=== PATIENT | female | born 1945 | race Caucasian/White ===

== ENCOUNTER 2017-03-13 16:29 | Inpatient (IN) ==
[2017-03-13] MEDS ORDERED: FUROSEMIDE 100 MG/10 ML VIAL IV STA (17:16)
[2017-03-13] MEDS ORDERED: NITROGLYCERIN 2% OINT 1 INCH/GM PACK TOP STA (17:16)
[2017-03-13] MEDS ORDERED: ASPIRIN 325 MG TABLET PO STA (17:16)
[2017-03-13] MEDS ORDERED: ONDANSETRON 4 MG/2 ML VIAL IV STA (17:16)
[2017-03-13] MEDS ORDERED: methylPREDNISolone SOD SUC 125 MG/2 ML VIAL IV STA (17:16)
[2017-03-13] MEDS ORDERED: ALBUTEROL/IPRATROPIUM 3 ML NEB RESP TX STA (17:16)
[2017-03-13] MEDS ORDERED: ASPIRIN 325 MG TABLET ONE (17:32)
[2017-03-13] MEDS ORDERED: NITROGLYCERIN 2% OINT 1 INCH/GM PACK TOP ONE (17:32)
[2017-03-13] MEDS ORDERED: ONDANSETRON 4 MG/2 ML VIAL ONE (17:32)
[2017-03-13] MEDS ORDERED: FUROSEMIDE 100 MG/10 ML VIAL ONE (17:32)
[2017-03-13] MEDS ORDERED: methylPREDNISolone SOD SUC 125 MG/2 ML VIAL ONE (17:32)
[2017-03-13 17:34] LABS: Basophils % 0.5 % (0.0-0.8); Eosinophils # 0.1 10*3/uL (0.0-0.87); Eosinophils % 1.2 % (0.00-10.9); Hematocrit 28.5 VOL% (35.7-47.0); Hemoglobin 9.5 GM/DL (12.0-16.0); Immature Granulocytes % 0.9 %; Immature Granulocytes Absolute 0.07 #; Lymphocytes # 1.5 10*3/uL (1.4-4.0); Lymphocytes % 18.1 % (21.3-54.2); Mean Corpuscular HGB Conc 33.3 GM/DL (32-36); Mean Corpuscular Hemoglobin 30 PG (27-34); Mean Corpuscular Volume 89.9 FL (87-102); Monocytes # 0.4 10*3/uL (0.11-0.8); Monocytes % 4.9 % (1.7-12.7); Neutrophils % 74.4 % (38.7-73.9); Platelet Count 191 T/CUMM (130-400); Red Blood Count 3.17 MC/CUMM (3.8-5.5); Red Cell Distribution Width 12.5 % (9.3-17.3)
[2017-03-13 17:55] LABS: PT Patient Result 10.5 SECS
[2017-03-13 18:11] LABS: Albumin 3.6 G/DL (3.4-5.0); Bilirubin,Total 0.4 MG/DL (0.2-1.0); Calcium 8.5 MG/DL (8.5-10.1); Magnesium 2.2 MG/DL (1.8-2.4); Osmolality,Calculated 286.8 MOS/KG (273-304); Potassium 4.2 MMOL/L (3.5-5.1); Total Protein 6.7 G/DL (6.4-8.3); Troponin I Only 0.021 NG/ML (0.00-0.045)
[2017-03-13 18:14] LABS: Apearance,Urine CLEAR (Clear); Bacteria,Urine Occasional /HPF (Few); Bilirubin,Urine Negative (Negative); Blood, Urine Negative (Negative); Glucose,Urine (UA) >=500 mg/dL (Negative); Ketones,Urine Negative (Negative); Nitrite,Urine Negative (Negative); Protein,Urine 30 MG/DL; RBC,Urine <1 /HPF (0-4); Urine Color Straw (Yellow); Urine Specific Gravity 1.003 (1.001-1.035); Urine Urobilinogen < 2.0 EU/DL (0.2-1.0); WBC,Urine <1 /HPF (0-6)
[2017-03-13] MEDS ORDERED: ENOXAPARIN 100 MG/ML SYRINGE SUBCUT STA (18:27)
[2017-03-13] MEDS ORDERED: ENOXAPARIN 120 MG/0.8 ML SYRINGE SUBCUT ONE (18:55)
[2017-03-13] MEDS ORDERED: ALBUTEROL/IPRATROPIUM 3 ML NEB RESP TX PRN (19:10)
[2017-03-13] MEDS ORDERED: ONDANSETRON 4 MG/2 ML VIAL IV PRN (19:10)
[2017-03-13] MEDS ORDERED: MAGNESIUM SULF RIDER 4 GM in PREMIX 1 EACH IV PRN (19:10)
[2017-03-13] MEDS ORDERED: GLUCAGON 1 MG VIAL IM PRN (19:10)
[2017-03-13] MEDS ORDERED: DEXTROSE 50% 25 GM/50 ML VIAL IV PRN (19:10)
[2017-03-13] MEDS ORDERED: FUROSEMIDE 40 MG TABLET PO PRN (19:10)
[2017-03-13] MEDS ORDERED: MAGNESIUM SULF RIDER 2 GM in PREMIX 1 EACH IV PRN (19:10)
[2017-03-13] MEDS ORDERED: POTASSIUM CHLORIDE 20 MEQ TABLET PO PRN (19:10)
[2017-03-13] MEDS ORDERED: INSULIN NPH/REGULAR 70/30 100 UNIT/ML SUBCUT ONE (19:51)
[2017-03-13] MEDS: INSULIN NPH/REGULAR 70/30 100 UNIT/ML SUBCUT SCH (20:00)
[2017-03-13] MEDS: ENOXAPARIN 120 MG/0.8 ML SYRINGE SUBCUT SCH (21:02)
[2017-03-13] MEDS ORDERED: CARVEDILOL 3.125 MG TABLET ONE (21:10)
[2017-03-13] MEDS ORDERED: FAMOTIDINE 20 MG TABLET ONE (21:10)
[2017-03-13] MEDS ORDERED: INSULIN REGULAR 100 UNIT/ML ONE (22:06)
[2017-03-13] MEDS: CARVEDILOL 3.125 MG TABLET PO SCH (22:34)
[2017-03-13] MEDS: FAMOTIDINE 20 MG TABLET PO SCH (22:34)
[2017-03-13] MEDS: CITALOPRAM 20 MG TABLET PO SCH (22:34)
[2017-03-13] MEDS: ROSUVASTATIN 20 MG TABLET PO SCH (22:34)
[2017-03-13] MEDS: SODIUM CHLORIDE 0.9% 1,000 ML IV SCH (22:35)
[2017-03-13] MEDS: PREGABALIN 75 MG CAPSULE PO SCH (22:35)
[2017-03-13] MEDS: traZODone 50 MG TABLET PO SCH (22:35)
[2017-03-13] MEDS: INSULIN REGULAR 100 UNIT/ML SUBCUT SCH (22:36)
[2017-03-13] MEDS: INSULIN GLARGINE 100 UNIT/ML SUBCUT SCH (22:37)
[2017-03-14] MEDS: NITROGLYCERIN 2% OINT 1 INCH/GM PACK TOP SCH ×4 (02:01→17:18)
[2017-03-14] MEDS ORDERED: NITROGLYCERIN 2% OINT 1 INCH/GM PACK TOP ONE ×2 (04:28→12:17)
[2017-03-14 06:11] LABS: Hematocrit 28.9 VOL% (35.7-47.0); Hemoglobin 9.9 GM/DL (12.0-16.0); Red Blood Count 3.31 MC/CUMM (3.8-5.5); White Blood Count 6.5 T/CUMM (4-12)
[2017-03-14 06:12] LABS: Basophils % 0.3 % (0.0-0.8); Immature Granulocytes % 1.1 %; Immature Granulocytes Absolute 0.07 #; Lymphocytes # 0.8 10*3/uL (1.4-4.0); Lymphocytes % 12.1 % (21.3-54.2); Mean Corpuscular HGB Conc 34.3 GM/DL (32-36); Mean Corpuscular Hemoglobin 30 PG (27-34); Mean Corpuscular Volume 87.3 FL (87-102); Mean Platelet Volume 11.4 FL (9.6-12.0); Monocytes # 0.1 10*3/uL (0.11-0.8); Monocytes % 1.1 % (1.7-12.7); Neutrophils # 5.5 10*3/uL (1.4-7.4); Neutrophils % 85.4 % (38.7-73.9); Platelet Count 203 T/CUMM (130-400); Red Cell Distribution Width 12.1 % (9.3-17.3)
[2017-03-14 07:46] LABS: Alanine Aminotransferase 32 U/L (13-56); Albumin 3.6 G/DL (3.4-5.0); Alkaline Phosphatase 118 U/L (45-117); Aspartate Amino Transferase 13 U/L (0-37); Bilirubin,Total < 0.39 MG/DL (0.2-1.0); Blood Urea Nitrogen 31 MG/DL (7-18); Calcium 9.2 MG/DL (8.5-10.1); Cholesterol 146 MG/DL (50-200); Glucose 359 MG/DL (74-106); HDL Cholesterol 50 MG/DL (40-60); Magnesium 2.1 MG/DL (1.8-2.4); Osmolality,Calculated 295.7 MOS/KG (273-304); Potassium 4.3 MMOL/L (3.5-5.1); Risk Ratio 2.92; Sodium 138 MMOL/L (136-145); Total Protein 7.2 G/DL (6.4-8.3); Triglycerides 131 MG/DL (2-150); VLDL CHOLESTEROL 26.2 MG/DL
[2017-03-14] MEDS ORDERED: INSULIN REGULAR 100 UNIT/ML ONE ×2 (08:00→11:46)
[2017-03-14] MEDS: INSULIN REGULAR 100 UNIT/ML SUBCUT SCH ×4 (08:01→20:59)
[2017-03-14] MEDS ORDERED: ASPIRIN CHEW 81 MG TABLET PO SCH (09:00)
[2017-03-14] MEDS ORDERED: PANTOPRAZOLE 40 MG TABLET PO SCH (09:00)
[2017-03-14] MEDS ORDERED: ASPIRIN EC 325 MG TABLET PO SCH (09:00)
[2017-03-14] MEDS ORDERED: CARVEDILOL 3.125 MG TABLET ONE (09:02)
[2017-03-14] MEDS ORDERED: INSULIN NPH/REGULAR 70/30 100 UNIT/ML SUBCUT ONE (09:05)
[2017-03-14] MEDS ORDERED: ENOXAPARIN 120 MG/0.8 ML SYRINGE SUBCUT ONE (09:05)
[2017-03-14] MEDS ORDERED: PANTOPRAZOLE 40 MG TABLET PO ONE (09:06)
[2017-03-14] MEDS ORDERED: FAMOTIDINE 20 MG TABLET ONE (09:06)
[2017-03-14] MEDS ORDERED: amLODIPine 5 MG TABLET ONE (09:06)
[2017-03-14] MEDS: ENOXAPARIN 120 MG/0.8 ML SYRINGE SUBCUT SCH (09:09)
[2017-03-14] MEDS: FAMOTIDINE 20 MG TABLET PO SCH ×2 (09:10→20:59)
[2017-03-14] MEDS: CARVEDILOL 3.125 MG TABLET PO SCH ×2 (09:10→20:58)
[2017-03-14] MEDS: amLODIPine 5 MG TABLET PO SCH (09:10)
[2017-03-14] MEDS: INSULIN NPH/REGULAR 70/30 100 UNIT/ML SUBCUT SCH ×2 (09:10→18:55)
[2017-03-14] MEDS: LEVOTHYROXINE 137 MCG TABLET PO SCH (09:42)
[2017-03-14] MEDS: GLIMEPIRIDE 4 MG TABLET PO SCH (09:43)
[2017-03-14] MEDS: LOSARTAN 50 MG TABLET PO SCH (09:43)
[2017-03-14] MEDS: PREGABALIN 75 MG CAPSULE PO SCH ×3 (09:52→20:59)
[2017-03-14] MEDS ORDERED: CITALOPRAM 20 MG TABLET PO ONE (10:00)
[2017-03-14] MEDS: CITALOPRAM 20 MG TABLET PO SCH ×2 (10:40→20:58)
[2017-03-14 11:24] LABS: Troponin I Only < 0.015 NG/ML (0.00-0.045)
[2017-03-14] MEDS ORDERED: GLUCAGON 1 MG VIAL IM PRN (12:24)
[2017-03-14] MEDS ORDERED: DEXTROSE 50% 25 GM/50 ML VIAL IV PRN (12:24)
[2017-03-14] MEDS ORDERED: ASPIRIN CHEW 81 MG TABLET PO ONE (13:25)
[2017-03-14] MEDS: traZODone 50 MG TABLET PO SCH (20:58)
[2017-03-14] MEDS: ROSUVASTATIN 20 MG TABLET PO SCH (20:58)
[2017-03-14] MEDS: INSULIN GLARGINE 100 UNIT/ML SUBCUT SCH (20:59)
[2017-03-14] MEDS: SODIUM CHLORIDE 0.9% 1,000 ML IV SCH (21:01)
[2017-03-15] MEDS: NITROGLYCERIN 2% OINT 1 INCH/GM PACK TOP SCH ×3 (01:47→12:06)
[2017-03-15 05:39] LABS: Basophils % 0.2 % (0.0-0.8); Eosinophils # 0.1 10*3/uL (0.0-0.87); Eosinophils % 0.7 % (0.00-10.9); Hemoglobin 8.9 GM/DL (12.0-16.0); Immature Granulocytes % 0.4 %; Immature Granulocytes Absolute 0.04 #; Lymphocytes # 3.3 10*3/uL (1.4-4.0); Lymphocytes % 33.7 % (21.3-54.2); Mean Corpuscular Hemoglobin 30 PG (27-34); Mean Corpuscular Volume 89.7 FL (87-102); Mean Platelet Volume 11.3 FL (9.6-12.0); Monocytes # 0.8 10*3/uL (0.11-0.8); Monocytes % 7.7 % (1.7-12.7); Neutrophils # 5.7 10*3/uL (1.4-7.4); Neutrophils % 57.3 % (38.7-73.9); Platelet Count 195 T/CUMM (130-400); Red Blood Count 3.01 MC/CUMM (3.8-5.5); Red Cell Distribution Width 12.6 % (9.3-17.3); White Blood Count 9.9 T/CUMM (4-12)
[2017-03-15 06:05] LABS: Magnesium 2.4 MG/DL (1.8-2.4); Osmolality,Calculated 285.4 MOS/KG (273-304); Potassium 4.3 MMOL/L (3.5-5.1)
[2017-03-15] MEDS: INSULIN REGULAR 100 UNIT/ML SUBCUT SCH ×3 (07:20→16:42)
[2017-03-15] MEDS: GLIMEPIRIDE 4 MG TABLET PO SCH (08:00)
[2017-03-15] MEDS: INSULIN NPH/REGULAR 70/30 100 UNIT/ML SUBCUT SCH (08:00)
[2017-03-15] MEDS: PREGABALIN 75 MG CAPSULE PO SCH ×3 (08:01→16:42)
[2017-03-15] MEDS ORDERED: PANTOPRAZOLE 40 MG TABLET PO SCH (09:00)
[2017-03-15] MEDS ORDERED: ENOXAPARIN 40 MG/0.4 ML SYRINGE SUBCUT SCH (09:00)
[2017-03-15] MEDS: LEVOTHYROXINE 137 MCG TABLET PO SCH (09:41)
[2017-03-15] MEDS: CITALOPRAM 20 MG TABLET PO SCH (09:41)
[2017-03-15] MEDS: LOSARTAN 50 MG TABLET PO SCH (09:41)
[2017-03-15] MEDS: amLODIPine 5 MG TABLET PO SCH (09:42)
[2017-03-15] MEDS: FAMOTIDINE 20 MG TABLET PO SCH (09:42)
[2017-03-15] MEDS: CARVEDILOL 3.125 MG TABLET PO SCH (09:42)
[2017-03-15 16:43] VITALS: BP 125/66
== END 2017-03-15 17:15 | disposition home or self-care (01) | DRG 392 ==
LOC: N.ED 16:29 → N.EDINP 18:27 → N.TELEN 03-14 12:30
PROVIDERS: ADMIT Internal Medicine Clinical Cardiac Electrophysiology; ATTEND Internal Medicine Clinical Cardiac Electrophysiology

== ENCOUNTER 2017-10-30 13:44 | Inpatient (IN) ==
[2017-10-30] MEDS ORDERED: SODIUM CHLORIDE 0.9% 1,000 ML IV STA ×2 (14:05→16:09)
[2017-10-30 15:09] LABS: Basophils # 0.1 10*3/uL (0.0-0.2); Basophils % 0.6 % (0.0-0.8); Eosinophils # 0.1 10*3/uL (0.0-0.87); Eosinophils % 0.7 % (0.00-10.9); Hematocrit 38.5 VOL% (35.7-47.0); Hemoglobin 12.5 GM/DL (12.0-16.0); Immature Granulocytes % 0.6 %; Immature Granulocytes Absolute 0.05 #; Lymphocytes # 1.6 10*3/uL (1.4-4.0); Mean Corpuscular HGB Conc 32.5 GM/DL (32-36); Mean Corpuscular Hemoglobin 30 PG (27-34); Mean Corpuscular Volume 91.9 FL (87-102); Mean Platelet Volume 11.4 FL (9.6-12.0); Monocytes # 0.2 10*3/uL (0.11-0.8); Neutrophils # 6.1 10*3/uL (1.4-7.4); Neutrophils % 75.1 % (38.7-73.9); Platelet Count 209 T/CUMM (130-400); Red Blood Count 4.19 MC/CUMM (3.8-5.5); Red Cell Distribution Width 13.6 % (9.3-17.3); White Blood Count 8.1 T/CUMM (4-12)
[2017-10-30 15:19] LABS: INR 0.9; Partial Thromboplastin Time 26.8 SECS (0-40)
[2017-10-30 15:35] LABS: Alanine Aminotransferase 24 U/L (13-56); Albumin 3.4 G/DL (3.4-5.0); Alkaline Phosphatase 87 U/L (45-117); Aspartate Amino Transferase 15 U/L (0-37); Bilirubin,Total < 0.39 MG/DL (0.2-1.0); Blood Urea Nitrogen 40 MG/DL (7-18); Calcium 8.9 MG/DL (8.5-10.1); Glucose 313 MG/DL (74-106); Osmolality,Calculated 294.8 MOS/KG (273-304); Potassium 4.5 MMOL/L (3.5-5.1); Sodium 137 MMOL/L (136-145); Total Protein 6.9 G/DL (6.4-8.3)
[2017-10-30 16:23] LABS: Ammonia 16 UMOL/L (11-32)
[2017-10-30 16:47] LABS: Apearance,Urine Slightly Hazy (Clear); Bilirubin,Urine Negative (Negative); Blood, Urine Small mg/dL (Negative); Glucose,Urine (UA) >=500 mg/dL (Negative); Hyaline Casts,Urine 5 /LPF (0-3); Ketones,Urine Negative (Negative); Mucus,Urine Occasional /LPF (Occasional); Nitrite,Urine Negative (Negative); Protein,Urine >=500 MG/DL; RBC,Urine 7 /HPF (0-4); Squamous Epithelial Cell,Urine Occasional /HPF (0-10); Urine Color Yellow (Yellow); Urine Specific Gravity 1.024 (1.001-1.035); WBC,Urine 26 /HPF (0-6)
[2017-10-30 16:53] LABS: Barbiturates Screen,Urine Negative (Negative); Benzodiazepines Screen,Urine Negative (Negative); Cannabinoid Screen,Urine Negative (Negative); Opiate Screen,Urine Negative (Negative); Phencyclidine Screen,Urine Negative (Negative)
[2017-10-30] MEDS ORDERED: ONDANSETRON 4 MG/2 ML VIAL IV PRN (17:52)
[2017-10-30] MEDS ORDERED: DEXTROSE 50% 25 GM/50 ML VIAL IV PRN ×2 (17:52)
[2017-10-30] MEDS ORDERED: GLUCAGON 1 MG VIAL IM PRN ×2 (17:52)
[2017-10-30] MEDS ORDERED: SODIUM CHLORIDE 0.9% 1,000 ML IV SCH (18:00)
[2017-10-30] MEDS ORDERED: hydrALAZINE 20 MG/1 ML VIAL ONE (19:29)
[2017-10-30] MEDS ORDERED: hydrALAZINE 20 MG/1 ML VIAL IV ONE (19:30)
[2017-10-30] MEDS: CARVEDILOL 6.25 MG TABLET PO SCH (21:30)
[2017-10-30] MEDS: traZODone 50 MG TABLET PO SCH (21:30)
[2017-10-30] MEDS: CITALOPRAM 20 MG TABLET PO SCH (21:30)
[2017-10-30] MEDS: ROSUVASTATIN 20 MG TABLET PO SCH (21:30)
[2017-10-30] MEDS: PREGABALIN 75 MG CAPSULE PO SCH (21:30)
[2017-10-30] MEDS: PANTOPRAZOLE 40 MG TABLET PO SCH (21:30)
[2017-10-30] MEDS: ENOXAPARIN 30 MG/0.3 ML SYRINGE SUBCUT SCH (21:30)
[2017-10-30] MEDS: BACLOFEN 10 MG TABLET PO PRN (21:30)
[2017-10-30] MEDS: ACETAMINOPHEN 500 MG TABLET PO SCH (21:30)
[2017-10-30] MEDS: cefTRIAXone 1,000 MG in SYRINGE 1 EACH IV SCH (21:31)
[2017-10-30] MEDS: INSULIN GLARGINE 100 UNIT/ML SUBCUT SCH (22:21)
[2017-10-30] MEDS: INSULIN REGULAR 100 UNIT/ML SUBCUT SCH (22:21)
[2017-10-31 05:42] LABS: Basophils # 0.1 10*3/uL (0.0-0.2); Eosinophils # 0.2 10*3/uL (0.0-0.87); Eosinophils % 2.5 % (0.00-10.9); Hematocrit 35.8 VOL% (35.7-47.0); Hemoglobin 11.9 GM/DL (12.0-16.0); Immature Granulocytes % 0.4 %; Immature Granulocytes Absolute 0.03 #; Lymphocytes # 2.3 10*3/uL (1.4-4.0); Lymphocytes % 34.2 % (21.3-54.2); Mean Corpuscular HGB Conc 33.2 GM/DL (32-36); Mean Corpuscular Hemoglobin 31 PG (27-34); Mean Corpuscular Volume 91.8 FL (87-102); Mean Platelet Volume 11.4 FL (9.6-12.0); Monocytes # 0.4 10*3/uL (0.11-0.8); Monocytes % 5.3 % (1.7-12.7); Neutrophils # 3.8 10*3/uL (1.4-7.4); Neutrophils % 56.6 % (38.7-73.9); Platelet Count 214 T/CUMM (130-400); Red Cell Distribution Width 13.7 % (9.3-17.3); White Blood Count 6.8 T/CUMM (4-12)
[2017-10-31 06:14] LABS: Albumin 2.9 G/DL (3.4-5.0); Bilirubin,Total 0.5 MG/DL (0.2-1.0); Calcium 8.2 MG/DL (8.5-10.1); Osmolality,Calculated 289.5 MOS/KG (273-304); Potassium 3.9 MMOL/L (3.5-5.1); Total Protein 6.2 G/DL (6.4-8.3)
[2017-10-31] MEDS: LEVOTHYROXINE 137 MCG TABLET PO SCH ×2 (06:29→08:56)
[2017-10-31] MEDS: CARVEDILOL 6.25 MG TABLET PO SCH ×2 (08:54→17:28)
[2017-10-31] MEDS: LOSARTAN 50 MG TABLET PO SCH (08:55)
[2017-10-31] MEDS: CITALOPRAM 20 MG TABLET PO SCH ×2 (08:55→21:09)
[2017-10-31] MEDS: ASPIRIN CHEW 81 MG TABLET PO SCH (08:55)
[2017-10-31] MEDS: INSULIN REGULAR 100 UNIT/ML SUBCUT SCH ×4 (08:55→21:08)
[2017-10-31] MEDS: PANTOPRAZOLE 40 MG TABLET PO SCH ×2 (08:56→21:09)
[2017-10-31] MEDS: amLODIPine 5 MG TABLET PO SCH (08:56)
[2017-10-31] MEDS: PREGABALIN 75 MG CAPSULE PO SCH ×4 (08:56→21:11)
[2017-10-31] MEDS ORDERED: PANTOPRAZOLE 40 MG TABLET PO SCH (09:00)
[2017-10-31] MEDS: ACETAMINOPHEN 325 MG TABLET PO PRN (17:32)
[2017-10-31] MEDS ORDERED: LEVOTHYROXINE 100 MCG VIAL IV ONE (18:08)
[2017-10-31] MEDS: INSULIN GLARGINE 100 UNIT/ML SUBCUT SCH (21:08)
[2017-10-31] MEDS: traZODone 50 MG TABLET PO SCH (21:09)
[2017-10-31] MEDS: BACLOFEN 10 MG TABLET PO PRN (21:09)
[2017-10-31] MEDS: ROSUVASTATIN 20 MG TABLET PO SCH (21:09)
[2017-10-31] MEDS: cefTRIAXone 1,000 MG in SYRINGE 1 EACH IV SCH (21:11)
[2017-10-31] MEDS: ENOXAPARIN 30 MG/0.3 ML SYRINGE SUBCUT SCH (21:15)
[2017-10-31] MEDS: ACETAMINOPHEN 500 MG TABLET PO SCH (21:17)
[2017-11-01] MEDS: LEVOTHYROXINE 137 MCG TABLET PO SCH (06:13)
[2017-11-01] MEDS: CARVEDILOL 6.25 MG TABLET PO SCH ×2 (09:13→17:50)
[2017-11-01] MEDS: INSULIN REGULAR 100 UNIT/ML SUBCUT SCH ×4 (09:14→21:03)
[2017-11-01] MEDS: CITALOPRAM 20 MG TABLET PO SCH (09:14)
[2017-11-01] MEDS: LOSARTAN 50 MG TABLET PO SCH (09:14)
[2017-11-01] MEDS: PREGABALIN 75 MG CAPSULE PO SCH ×2 (09:14→21:02)
[2017-11-01] MEDS: ASPIRIN CHEW 81 MG TABLET PO SCH (09:14)
[2017-11-01] MEDS: amLODIPine 5 MG TABLET PO SCH (09:14)
[2017-11-01] MEDS: PANTOPRAZOLE 40 MG TABLET PO SCH ×2 (09:14→21:02)
[2017-11-01] MEDS: SODIUM CHLORIDE 0.45% 1,000 ML IV SCH (12:14)
[2017-11-01] MEDS: ACETAMINOPHEN 325 MG TABLET PO PRN ×2 (12:15→17:51)
[2017-11-01] MEDS: cefTRIAXone 1,000 MG in SYRINGE 1 EACH IV SCH (20:59)
[2017-11-01] MEDS: ACETAMINOPHEN 500 MG TABLET PO SCH (21:02)
[2017-11-01] MEDS: ROSUVASTATIN 20 MG TABLET PO SCH (21:02)
[2017-11-01] MEDS: traZODone 50 MG TABLET PO SCH (21:02)
[2017-11-01] MEDS: INSULIN GLARGINE 100 UNIT/ML SUBCUT SCH (21:02)
[2017-11-01] MEDS: ENOXAPARIN 30 MG/0.3 ML SYRINGE SUBCUT SCH (21:08)
[2017-11-02] MEDS: ACETAMINOPHEN 325 MG TABLET PO PRN (05:47)
[2017-11-02] MEDS: LEVOTHYROXINE 137 MCG TABLET PO SCH (06:25)
[2017-11-02] MEDS: LOSARTAN 50 MG TABLET PO SCH (09:32)
[2017-11-02] MEDS: CARVEDILOL 6.25 MG TABLET PO SCH ×2 (09:33→17:02)
[2017-11-02] MEDS: amLODIPine 5 MG TABLET PO SCH (09:33)
[2017-11-02] MEDS: CITALOPRAM 20 MG TABLET PO SCH (09:33)
[2017-11-02] MEDS: PANTOPRAZOLE 40 MG TABLET PO SCH ×2 (09:34→21:00)
[2017-11-02] MEDS: ASPIRIN CHEW 81 MG TABLET PO SCH (09:34)
[2017-11-02] MEDS: INSULIN REGULAR 100 UNIT/ML SUBCUT SCH ×4 (09:34→21:01)
[2017-11-02] MEDS: SODIUM CHLORIDE 0.45% 1,000 ML IV SCH (12:28)
[2017-11-02] MEDS ORDERED: POLYETHYLENE GLYCOL POWDER 17 GM PACK PO PRN (20:18)
[2017-11-02] MEDS: PREGABALIN 75 MG CAPSULE PO SCH (21:00)
[2017-11-02] MEDS: cefTRIAXone 1,000 MG in SYRINGE 1 EACH IV SCH (21:00)
[2017-11-02] MEDS: ACETAMINOPHEN 500 MG TABLET PO SCH (21:00)
[2017-11-02] MEDS: ROSUVASTATIN 20 MG TABLET PO SCH (21:00)
[2017-11-02] MEDS: traZODone 50 MG TABLET PO SCH (21:01)
[2017-11-02] MEDS: INSULIN GLARGINE 100 UNIT/ML SUBCUT SCH (21:01)
[2017-11-02] MEDS: ENOXAPARIN 30 MG/0.3 ML SYRINGE SUBCUT SCH (21:30)
[2017-11-03] MEDS: SODIUM CHLORIDE 0.45% 1,000 ML IV SCH (03:26)
[2017-11-03] MEDS: LEVOTHYROXINE 137 MCG TABLET PO SCH (06:02)
[2017-11-03 07:59] VITALS: BP 142/71
[2017-11-03] MEDS: amLODIPine 5 MG TABLET PO SCH (09:21)
[2017-11-03] MEDS: PANTOPRAZOLE 40 MG TABLET PO SCH (09:21)
[2017-11-03] MEDS: INSULIN REGULAR 100 UNIT/ML SUBCUT SCH (09:21)
[2017-11-03] MEDS: ASPIRIN CHEW 81 MG TABLET PO SCH (09:22)
[2017-11-03] MEDS: CITALOPRAM 20 MG TABLET PO SCH (09:22)
[2017-11-03] MEDS: LOSARTAN 50 MG TABLET PO SCH (09:22)
[2017-11-03] MEDS: CARVEDILOL 6.25 MG TABLET PO SCH (09:23)
== END 2017-11-03 13:56 | disposition home health service (06) | DRG 682 ==
LOC: EDUNIT# → EDBD → N.ED 13:44 → N.EDINP 16:24 → N.TELEN 18:18
PROVIDERS: ADMIT Internal Medicine; ATTEND Internal Medicine

== ENCOUNTER 2018-03-21 22:38 | Inpatient (IN) ==
[2018-03-21] MEDS ORDERED: ASPIRIN 325 MG TABLET PO STA (23:43)
[2018-03-22] MEDS ORDERED: NITROGLYCERIN 2% OINT 1 INCH/GM PACK TOP STA (00:22)
[2018-03-22] MEDS ORDERED: hydrALAZINE 20 MG/1 ML VIAL IV STA (00:26)
[2018-03-22 00:55] LABS: Basophils % 0.5 % (0.0-0.8); Eosinophils # 0.3 10*3/uL (0.0-0.87); Eosinophils % 3.5 % (0.00-10.9); Hematocrit 32.8 VOL% (35.7-47.0); Hemoglobin 10.7 GM/DL (12.0-16.0); Immature Granulocytes % 0.4 %; Immature Granulocytes Absolute 0.03 #; Lymphocytes # 2.4 10*3/uL (1.4-4.0); Mean Corpuscular HGB Conc 32.6 GM/DL (32-36); Mean Corpuscular Hemoglobin 30 PG (27-34); Mean Corpuscular Volume 91.9 FL (87-102); Mean Platelet Volume 11.6 FL (9.6-12.0); Monocytes # 0.5 10*3/uL (0.11-0.8); Neutrophils # 5.3 10*3/uL (1.4-7.4); Neutrophils % 61.6 % (38.7-73.9); Platelet Count 179 T/CUMM (130-400); Red Blood Count 3.57 MC/CUMM (3.8-5.5); Red Cell Distribution Width 12.2 % (9.3-17.3); White Blood Count 8.5 T/CUMM (4-12)
[2018-03-22 01:06] LABS: Alanine Aminotransferase 21 U/L (13-56); Albumin 3.3 G/DL (3.4-5.0); Alkaline Phosphatase 91 U/L (45-117); Aspartate Amino Transferase 13 U/L (0-37); Bilirubin,Total < 0.39 MG/DL (0.2-1.0); Blood Urea Nitrogen 36 MG/DL (7-18); Calcium 8.7 MG/DL (8.5-10.1); Glucose 272 MG/DL (74-106); Osmolality,Calculated 298.3 MOS/KG (273-304); Potassium 4.4 MMOL/L (3.5-5.1); Sodium 141 MMOL/L (136-145); Total Protein 7.1 G/DL (6.4-8.3)
[2018-03-22] MEDS ORDERED: ONDANSETRON 4 MG/2 ML VIAL IV PRN (03:03)
[2018-03-22] MEDS ORDERED: DEXTROSE 50% 25 GM/50 ML VIAL IV PRN (03:03)
[2018-03-22] MEDS ORDERED: MORPHINE 4 MG/1 ML VIAL IV PRN (03:03)
[2018-03-22] MEDS ORDERED: GLUCAGON 1 MG VIAL IM PRN (03:03)
[2018-03-22] MEDS ORDERED: hydrALAZINE 20 MG/1 ML VIAL IV PRN (03:29)
[2018-03-22 06:41] LABS: Risk Ratio 2.61; Thyroid Stimulating Hormone 5.82 uIU/ml (0.358-3.74); VLDL CHOLESTEROL 18.4 MG/DL
[2018-03-22] MEDS: ACETAMINOPHEN 325 MG TABLET PO PRN ×2 (07:38→16:24)
[2018-03-22] MEDS: INSULIN LISPRO 100 UNIT/ML SUBCUT SCH ×4 (08:34→21:03)
[2018-03-22] MEDS: ENOXAPARIN 40 MG/0.4 ML SYRINGE SUBCUT SCH (08:35)
[2018-03-22] MEDS ORDERED: MECLIZINE 12.5 MG TABLET PO PRN (10:05)
[2018-03-22] MEDS ORDERED: CARVEDILOL 3.125 MG TABLET PO SCH (10:30)
[2018-03-22] MEDS: ASPIRIN CHEW 81 MG TABLET PO SCH (11:10)
[2018-03-22] MEDS: LOSARTAN 50 MG TABLET PO SCH (11:10)
[2018-03-22] MEDS: amLODIPine 5 MG TABLET PO SCH (11:10)
[2018-03-22] MEDS: CARVEDILOL 6.25 MG TABLET PO SCH (16:28)
[2018-03-22] MEDS: PREGABALIN 75 MG CAPSULE PO SCH (21:01)
[2018-03-22] MEDS: CITALOPRAM 20 MG TABLET PO SCH (21:02)
[2018-03-22] MEDS: ROSUVASTATIN 20 MG TABLET PO SCH (21:02)
[2018-03-22] MEDS: INSULIN GLARGINE 100 UNIT/ML SUBCUT SCH (21:04)
[2018-03-23] MEDS: ACETAMINOPHEN 325 MG TABLET PO PRN ×4 (04:36→21:20)
[2018-03-23 05:56] LABS: Basophils # 0.1 10*3/uL (0.0-0.2); Basophils % 0.6 % (0.0-0.8); Eosinophils # 0.3 10*3/uL (0.0-0.87); Eosinophils % 4.3 % (0.00-10.9); Hematocrit 32.9 VOL% (35.7-47.0); Hemoglobin 10.4 GM/DL (12.0-16.0); Immature Granulocytes % 0.8 %; Immature Granulocytes Absolute 0.06 #; Lymphocytes # 2.8 10*3/uL (1.4-4.0); Lymphocytes % 35.3 % (21.3-54.2); Mean Corpuscular HGB Conc 31.6 GM/DL (32-36); Mean Corpuscular Hemoglobin 29 PG (27-34); Mean Corpuscular Volume 92.2 FL (87-102); Mean Platelet Volume 11.7 FL (9.6-12.0); Monocytes # 0.6 10*3/uL (0.11-0.8); Neutrophils # 4.1 10*3/uL (1.4-7.4); Platelet Count 202 T/CUMM (130-400); Red Blood Count 3.57 MC/CUMM (3.8-5.5); Red Cell Distribution Width 12.3 % (9.3-17.3); White Blood Count 7.9 T/CUMM (4-12)
[2018-03-23] MEDS: LEVOTHYROXINE 137 MCG TABLET PO SCH (06:07)
[2018-03-23 06:22] LABS: Calcium 8.8 MG/DL (8.5-10.1); Osmolality,Calculated 290.5 MOS/KG (273-304); Potassium 4.8 MMOL/L (3.5-5.1)
[2018-03-23] MEDS: NITROGLYCERIN SL 0.4 MG TABLET SL PRN ×2 (07:38→07:46)
[2018-03-23] MEDS: LOSARTAN 50 MG TABLET PO SCH (08:27)
[2018-03-23] MEDS: FUROSEMIDE 40 MG TABLET PO SCH (08:27)
[2018-03-23] MEDS: CARVEDILOL 6.25 MG TABLET PO SCH (08:27)
[2018-03-23] MEDS: amLODIPine 5 MG TABLET PO SCH (08:27)
[2018-03-23] MEDS: ASPIRIN CHEW 81 MG TABLET PO SCH (08:28)
[2018-03-23] MEDS: ENOXAPARIN 40 MG/0.4 ML SYRINGE SUBCUT SCH (08:40)
[2018-03-23] MEDS: INSULIN LISPRO 100 UNIT/ML SUBCUT SCH ×4 (10:10→21:55)
[2018-03-23] MEDS: GLIMEPIRIDE 4 MG TABLET PO SCH (10:10)
[2018-03-23] MEDS ORDERED: amLODIPine 10 MG TABLET PO SCH (11:00)
[2018-03-23] MEDS ORDERED: amLODIPine 5 MG TABLET PO ONE (11:02)
[2018-03-23] MEDS ORDERED: ALUM/MAG/SIMETH/LIDO VISC 1:1 30 ML BOTTLE PO PRN (11:46)
[2018-03-23] MEDS: CARVEDILOL 12.5 MG TABLET PO SCH (17:01)
[2018-03-23] MEDS: INSULIN GLARGINE 100 UNIT/ML SUBCUT SCH (21:19)
[2018-03-23] MEDS: ROSUVASTATIN 20 MG TABLET PO SCH (21:20)
[2018-03-23] MEDS: CITALOPRAM 20 MG TABLET PO SCH (21:20)
[2018-03-23] MEDS: PREGABALIN 75 MG CAPSULE PO SCH (21:20)
[2018-03-24] MEDS: LEVOTHYROXINE 137 MCG TABLET PO SCH (06:58)
[2018-03-24] MEDS ORDERED: DIAZEPAM 5 MG TABLET PO ONE (07:54)
[2018-03-24] MEDS ORDERED: diphenhydrAMINE CAP 50 MG CAPSULE PO ONE (07:55)
[2018-03-24] MEDS ORDERED: SODIUM CHLORIDE 0.9% 1,000 ML IV SCH (08:00)
[2018-03-24] MEDS: ASPIRIN CHEW 81 MG TABLET PO SCH (08:12)
[2018-03-24] MEDS: CARVEDILOL 12.5 MG TABLET PO SCH ×2 (08:12→17:02)
[2018-03-24] MEDS: amLODIPine 10 MG TABLET PO SCH (08:13)
[2018-03-24] MEDS: LOSARTAN 50 MG TABLET PO SCH (08:13)
[2018-03-24] MEDS: ENOXAPARIN 40 MG/0.4 ML SYRINGE SUBCUT SCH (08:13)
[2018-03-24] MEDS ORDERED: POTASSIUM CHLORIDE RIDER 10 MEQ in PREMIX 1 EACH IV PRN (08:22)
[2018-03-24] MEDS ORDERED: MAGNESIUM SULF RIDER 2 GM in PREMIX 1 EACH IV PRN (08:22)
[2018-03-24] MEDS ORDERED: HEPARIN/NACL 0.9% 2 UNITS/ML 1,000 ML IV ONE (08:48)
[2018-03-24] MEDS ORDERED: LIDOCAINE 1%/EPI INJ 20 ML VIAL ONE (08:48)
[2018-03-24] MEDS ORDERED: MIDAZOLAM 2 MG/2 ML VIAL ONE (09:01)
[2018-03-24] MEDS ORDERED: fentaNYL 100 MCG/2 ML VIAL ONE (09:01)
[2018-03-24] MEDS ORDERED: ENOXAPARIN 60 MG/0.6 ML SYRINGE ONE (09:32)
[2018-03-24] MEDS ORDERED: TICAGRELOR 90 MG TABLET ONE (09:49)
[2018-03-24] MEDS ORDERED: HYDROmorphone 2 MG/1 ML VIAL IV PRN (10:21)
[2018-03-24] MEDS: INSULIN LISPRO 100 UNIT/ML SUBCUT SCH ×4 (11:13→22:22)
[2018-03-24] MEDS: GLIMEPIRIDE 4 MG TABLET PO SCH (11:13)
[2018-03-24] MEDS: FUROSEMIDE 40 MG TABLET PO SCH (11:14)
[2018-03-24] MEDS: ROSUVASTATIN 20 MG TABLET PO SCH (21:35)
[2018-03-24] MEDS: TICAGRELOR 90 MG TABLET PO SCH (21:35)
[2018-03-24] MEDS: PREGABALIN 75 MG CAPSULE PO SCH (21:35)
[2018-03-24] MEDS: CITALOPRAM 20 MG TABLET PO SCH (21:35)
[2018-03-24] MEDS: INSULIN GLARGINE 100 UNIT/ML SUBCUT SCH (22:18)
[2018-03-24] MEDS: ACETAMINOPHEN 325 MG TABLET PO PRN (22:23)
[2018-03-25 04:57] LABS: Basophils % 0.5 % (0.0-0.8); Eosinophils # 0.2 10*3/uL (0.0-0.87); Hemoglobin 9.8 GM/DL (12.0-16.0); Immature Granulocytes % 0.4 %; Immature Granulocytes Absolute 0.03 #; Lymphocytes # 2.5 10*3/uL (1.4-4.0); Lymphocytes % 31.8 % (21.3-54.2); Mean Corpuscular HGB Conc 32.7 GM/DL (32-36); Mean Corpuscular Hemoglobin 30 PG (27-34); Mean Corpuscular Volume 90.6 FL (87-102); Mean Platelet Volume 11.7 FL (9.6-12.0); Monocytes # 0.5 10*3/uL (0.11-0.8); Monocytes % 6.8 % (1.7-12.7); Neutrophils # 4.6 10*3/uL (1.4-7.4); Neutrophils % 57.5 % (38.7-73.9); Platelet Count 203 T/CUMM (130-400); Red Blood Count 3.31 MC/CUMM (3.8-5.5)
[2018-03-25 05:28] LABS: Calcium 8.3 MG/DL (8.5-10.1); Osmolality,Calculated 294.7 MOS/KG (273-304); Potassium 4.6 MMOL/L (3.5-5.1)
[2018-03-25] MEDS: LEVOTHYROXINE 137 MCG TABLET PO SCH (06:04)
[2018-03-25] MEDS ORDERED: PANTOPRAZOLE 40 MG TABLET PO SCH (09:00)
[2018-03-25] MEDS: ASPIRIN CHEW 81 MG TABLET PO SCH (09:07)
[2018-03-25] MEDS: LOSARTAN 50 MG TABLET PO SCH (09:07)
[2018-03-25] MEDS: TICAGRELOR 90 MG TABLET PO SCH (09:07)
[2018-03-25] MEDS: FUROSEMIDE 40 MG TABLET PO SCH (09:07)
[2018-03-25] MEDS: amLODIPine 10 MG TABLET PO SCH (09:07)
[2018-03-25] MEDS: CARVEDILOL 12.5 MG TABLET PO SCH (09:08)
[2018-03-25] MEDS: GLIMEPIRIDE 4 MG TABLET PO SCH (09:08)
[2018-03-25] MEDS: INSULIN LISPRO 100 UNIT/ML SUBCUT SCH (09:08)
[2018-03-25] MEDS: ENOXAPARIN 40 MG/0.4 ML SYRINGE SUBCUT SCH (09:28)
[2018-03-25] MEDS ORDERED: INFLUENZA VIRUS VACCINE 0.5 ML SYRINGE IM ONE (10:34)
[2018-03-25 12:00] VITALS: BP 122/53
== END 2018-03-25 13:05 | disposition home or self-care (01) | DRG 247 ==
LOC: N.ED 22:38 → N.EDINP 03-22 02:55 → INTOOBSV 03-22 02:55 → N.TELES 03-22 03:42
PROVIDERS: ADMIT Internal Medicine; ATTEND Internal Medicine
PROC: CLCCHCL (ICD-10-PCS; 2018-03-24 09:45)

== ENCOUNTER 2018-07-14 21:14 | Inpatient (IN) ==
[2018-07-14] MEDS ORDERED: NITROGLYCERIN 2% OINT 1 INCH/GM PACK TOP STA (21:38)
[2018-07-14] MEDS ORDERED: FUROSEMIDE 100 MG/10 ML VIAL IV STA (21:38)
[2018-07-14] MEDS ORDERED: methylPREDNISolone SOD SUC 125 MG/2 ML VIAL IV STA (21:38)
[2018-07-14] MEDS ORDERED: ONDANSETRON 4 MG/2 ML VIAL IV STA (21:38)
[2018-07-14] MEDS ORDERED: ALBUTEROL 2.5 MG/3 ML NEB RESP TX SCH (22:00)
[2018-07-14 22:09] LABS: ABG Base Excess -3.9 MMOL/L (-2.5-2.5); ABG HCO3 22.1 MMOL/L (20-26); ABG Oxygen Saturation 94.7 % (95-100); ABG PCO2 43.7 MM HG (35-48); ABG PH 7.322 (7.35-7.45); ABG PO2 79.2 MM HG (80-95); ABG TCO2 23.5 MMOL/L (23-27); Allen Test Positive
[2018-07-14 22:16] LABS: Basophils # 0.1 10*3/uL (0.0-0.2); Basophils % 0.4 % (0.0-0.8); Eosinophils # 0.2 10*3/uL (0.0-0.87); Eosinophils % 1.8 % (0.00-10.9); Hematocrit 29.5 VOL% (35.7-47.0); Hemoglobin 9.2 GM/DL (12.0-16.0); Immature Granulocytes % 0.7 %; Immature Granulocytes Absolute 0.09 #; Lymphocytes # 1.5 10*3/uL (1.4-4.0); Lymphocytes % 10.7 % (21.3-54.2); Mean Corpuscular HGB Conc 31.2 GM/DL (32-36); Mean Corpuscular Hemoglobin 29 PG (27-34); Mean Corpuscular Volume 93.9 FL (87-102); Mean Platelet Volume 11.6 FL (9.6-12.0); Monocytes # 1.1 10*3/uL (0.11-0.8); Monocytes % 8.1 % (1.7-12.7); Neutrophils # 10.6 10*3/uL (1.4-7.4); Neutrophils % 78.3 % (38.7-73.9); Platelet Count 221 T/CUMM (130-400); Red Blood Count 3.14 MC/CUMM (3.8-5.5); Red Cell Distribution Width 12.7 % (9.3-17.3); White Blood Count 13.5 T/CUMM (4-12)
[2018-07-14 22:24] LABS: INR 0.9; PT Patient Result 10.3 SECS
[2018-07-14 22:34] LABS: Alanine Aminotransferase 35 U/L (13-56); Albumin 3.3 G/DL (3.4-5.0); Alkaline Phosphatase 112 U/L (45-117); Aspartate Amino Transferase 15 U/L (0-37); Bilirubin,Total < 0.39 MG/DL (0.2-1.0); Blood Urea Nitrogen 52 MG/DL (7-18); Calcium 8.3 MG/DL (8.5-10.1); Glucose 192 MG/DL (74-106); Osmolality,Calculated 297.4 MOS/KG (273-304); Potassium 5.8 MMOL/L (3.5-5.1); Sodium 140 MMOL/L (136-145); Total Protein 7.3 G/DL (6.4-8.3)
[2018-07-14 22:52] LABS: Amorphous Crystals,Urine Few /HPF (Few); Apearance,Urine CLEAR (Clear); Bilirubin,Urine Negative (Negative); Blood, Urine Small mg/dL (Negative); Glucose,Urine (UA) 50 mg/dL (Negative); Ketones,Urine Negative (Negative); Mucus,Urine Occasional /LPF (Occasional); Nitrite,Urine Negative (Negative); Protein,Urine 100 MG/DL; Squamous Epithelial Cell,Urine Occasional /HPF (0-10); Urine Color Yellow (Yellow); Urine Specific Gravity 1.016 (1.001-1.035); Urine Urobilinogen < 2.0 EU/DL (0.2-1.0)
[2018-07-14] MEDS ORDERED: CALCIUM CHLORIDE 1,000 MG/10 ML SYRINGE IV STA (23:25)
[2018-07-14] MEDS ORDERED: DEXTROSE 50% 25 GM/50 ML VIAL IV PRN (23:58)
[2018-07-14] MEDS ORDERED: MAGNESIUM SULF RIDER 4 GM in PREMIX 1 EACH IV PRN (23:58)
[2018-07-14] MEDS ORDERED: MAGNESIUM SULF RIDER 2 GM in PREMIX 1 EACH IV PRN (23:58)
[2018-07-14] MEDS ORDERED: ONDANSETRON 4 MG/2 ML VIAL IV PRN (23:58)
[2018-07-14] MEDS ORDERED: DEXTROSE 50% 25 GM/50 ML SYRINGE IV PRN (23:58)
[2018-07-14] MEDS ORDERED: GLUCAGON 1 MG VIAL IM PRN ×2 (23:58)
[2018-07-15] MEDS ORDERED: MECLIZINE 12.5 MG TABLET PO PRN (00:03)
[2018-07-15] MEDS ORDERED: TICAGRELOR 90 MG TABLET PO SCH (00:30)
[2018-07-15] MEDS: ROSUVASTATIN 20 MG TABLET PO SCH ×2 (03:24→21:13)
[2018-07-15] MEDS: CITALOPRAM 20 MG TABLET PO SCH ×2 (03:24→21:14)
[2018-07-15] MEDS: PREGABALIN 75 MG CAPSULE PO SCH ×2 (03:24→21:17)
[2018-07-15] MEDS: LEVOTHYROXINE 137 MCG TABLET PO SCH (07:13)
[2018-07-15 08:02] LABS: Basophils % 0.1 % (0.0-0.8); Hematocrit 25.3 VOL% (35.7-47.0); Immature Granulocytes % 0.7 %; Immature Granulocytes Absolute 0.08 #; Lymphocytes # 0.6 10*3/uL (1.4-4.0); Lymphocytes % 5.2 % (21.3-54.2); Mean Corpuscular HGB Conc 30.4 GM/DL (32-36); Mean Corpuscular Hemoglobin 29 PG (27-34); Mean Corpuscular Volume 95.8 FL (87-102); Mean Platelet Volume 11.3 FL (9.6-12.0); Monocytes # 0.1 10*3/uL (0.11-0.8); Monocytes % 1.3 % (1.7-12.7); Neutrophils % 92.7 % (38.7-73.9); Platelet Count 203 T/CUMM (130-400); Red Blood Count 2.64 MC/CUMM (3.8-5.5); Red Cell Distribution Width 12.7 % (9.3-17.3); White Blood Count 10.8 T/CUMM (4-12)
[2018-07-15 08:04] LABS: Hemoglobin 7.7 GM/DL (12.0-16.0)
[2018-07-15 08:10] LABS: Alanine Aminotransferase 31 U/L (13-56); Albumin 2.8 G/DL (3.4-5.0); Alkaline Phosphatase 96 U/L (45-117); Aspartate Amino Transferase 13 U/L (0-37); Bilirubin,Total < 0.39 MG/DL (0.2-1.0); Blood Urea Nitrogen 58 MG/DL (7-18); Calcium 8.9 MG/DL (8.5-10.1); Glucose 436 MG/DL (74-106); Sodium 136 MMOL/L (136-145); Total Protein 7.1 G/DL (6.4-8.3)
[2018-07-15 08:11] LABS: Anisocytosis 1+; Band Neutrophils 14 % (0-10); Giant Platelets Few; Lymphocytes 6 % (20-55); Platelet Estimate Normal; Segmented Neutrophils 76 % (50-85); Total Cells Counted 100
[2018-07-15 08:18] LABS: Potassium 6.2 MMOL/L (3.5-5.1)
[2018-07-15] MEDS ORDERED: POTASSIUM CHLORIDE RIDER 10 MEQ in PREMIX 1 EACH IV PRN (08:20)
[2018-07-15] MEDS ORDERED: MAGNESIUM SULF RIDER 2 GM in PREMIX 1 EACH IV PRN (08:20)
[2018-07-15] MEDS ORDERED: LOSARTAN 50 MG TABLET PO SCH (09:00)
[2018-07-15] MEDS ORDERED: CLOPIDOGREL 75 MG TABLET PO SCH (09:00)
[2018-07-15] MEDS ORDERED: PANTOPRAZOLE 40 MG TABLET PO SCH (09:00)
[2018-07-15] MEDS: SODIUM CHLORIDE 0.45% 1,000 ML IV SCH ×2 (09:18→19:08)
[2018-07-15] MEDS: OMEGA 3 ACID ETHYL ESTERS 1 GM CAPSULE PO SCH ×2 (09:20→21:13)
[2018-07-15] MEDS: amLODIPine 10 MG TABLET PO SCH (09:20)
[2018-07-15] MEDS: ASPIRIN CHEW 81 MG TABLET PO SCH (09:21)
[2018-07-15] MEDS: CARVEDILOL 6.25 MG TABLET PO SCH ×2 (09:21→21:14)
[2018-07-15] MEDS: PANTOPRAZOLE 40 MG TABLET PO SCH ×2 (09:21→21:17)
[2018-07-15] MEDS: GLIMEPIRIDE 4 MG TABLET PO SCH (09:21)
[2018-07-15] MEDS: FUROSEMIDE 40 MG/4 ML VIAL IV SCH ×2 (09:22→17:10)
[2018-07-15] MEDS: ENOXAPARIN 30 MG/0.3 ML SYRINGE SUBCUT SCH (09:23)
[2018-07-15] MEDS: INSULIN REGULAR 100 UNIT/ML SUBCUT SCH ×5 (09:23→23:28)
[2018-07-15 11:07] LABS: Hematocrit 25.4 VOL% (35.7-47.0); Hemoglobin 7.9 GM/DL (12.0-16.0)
[2018-07-15] MEDS: SODIUM POLYSTYRENE SULFATE 15 GM/60 ML BOTTLE PO SCH ×2 (11:24→17:09)
[2018-07-15] MEDS ORDERED: DEXTROSE 50% 25 GM/50 ML SYRINGE IV PRN (16:20)
[2018-07-15] MEDS ORDERED: GLUCAGON 1 MG VIAL IM PRN (16:20)
[2018-07-15] MEDS: INSULIN GLARGINE 100 UNIT/ML SUBCUT SCH (21:14)
[2018-07-15] MEDS: BACLOFEN 10 MG TABLET PO SCH (21:14)
[2018-07-15 22:49] LABS: Hemoglobin 7.8 GM/DL (12.0-16.0)
[2018-07-16] MEDS: INSULIN REGULAR 100 UNIT/ML SUBCUT SCH ×5 (04:05→21:04)
[2018-07-16 04:47] LABS: Basophils % 0.2 % (0.0-0.8); Eosinophils # 0.1 10*3/uL (0.0-0.87); Eosinophils % 0.5 % (0.00-10.9); Hematocrit 23.8 VOL% (35.7-47.0); Hemoglobin 7.4 GM/DL (12.0-16.0); Immature Granulocytes % 0.7 %; Immature Granulocytes Absolute 0.08 #; Lymphocytes # 2.8 10*3/uL (1.4-4.0); Lymphocytes % 23.3 % (21.3-54.2); Mean Corpuscular HGB Conc 31.1 GM/DL (32-36); Mean Corpuscular Hemoglobin 29 PG (27-34); Mean Corpuscular Volume 92.6 FL (87-102); Mean Platelet Volume 12.2 FL (9.6-12.0); Monocytes % 8.6 % (1.7-12.7); Neutrophils % 66.7 % (38.7-73.9); Platelet Count 213 T/CUMM (130-400); Red Blood Count 2.57 MC/CUMM (3.8-5.5); Red Cell Distribution Width 12.5 % (9.3-17.3); White Blood Count 11.9 T/CUMM (4-12)
[2018-07-16 05:07] LABS: Calcium 8.7 MG/DL (8.5-10.1); Osmolality,Calculated 300.4 MOS/KG (273-304); Potassium 4.6 MMOL/L (3.5-5.1)
[2018-07-16] MEDS: LEVOTHYROXINE 137 MCG TABLET PO SCH (06:50)
[2018-07-16] MEDS ORDERED: SODIUM CHLORIDE 0.9% 1,000 ML IV PRN (07:07)
[2018-07-16] MEDS: CARVEDILOL 6.25 MG TABLET PO SCH ×2 (09:11→21:02)
[2018-07-16] MEDS: GLIMEPIRIDE 4 MG TABLET PO SCH (09:17)
[2018-07-16] MEDS: amLODIPine 10 MG TABLET PO SCH (09:18)
[2018-07-16] MEDS: OMEGA 3 ACID ETHYL ESTERS 1 GM CAPSULE PO SCH ×2 (09:19→21:03)
[2018-07-16] MEDS: ASPIRIN CHEW 81 MG TABLET PO SCH (09:20)
[2018-07-16] MEDS: PANTOPRAZOLE 40 MG TABLET PO SCH ×2 (09:21→21:03)
[2018-07-16] MEDS: ENOXAPARIN 30 MG/0.3 ML SYRINGE SUBCUT SCH (09:21)
[2018-07-16] MEDS: FUROSEMIDE 40 MG/4 ML VIAL IV SCH (09:22)
[2018-07-16 10:38] LABS: Hematocrit 25.5 VOL% (35.7-47.0); Hemoglobin 7.9 GM/DL (12.0-16.0)
[2018-07-16] MEDS ORDERED: DIAZEPAM 5 MG TABLET PO ONE (12:00)
[2018-07-16] MEDS ORDERED: diphenhydrAMINE CAP 25 MG CAPSULE PO ONE (12:00)
[2018-07-16] MEDS: ACETAMINOPHEN 325 MG TABLET PO PRN ×2 (14:43→23:45)
[2018-07-16] MEDS: SODIUM CHLORIDE 0.45% 1,000 ML IV SCH (19:41)
[2018-07-16] MEDS: CITALOPRAM 20 MG TABLET PO SCH (21:02)
[2018-07-16] MEDS: ROSUVASTATIN 20 MG TABLET PO SCH (21:02)
[2018-07-16] MEDS: ESTRADIOL 0.01% VAG CREAM 42.5 GM TUBE VAG SCH (21:02)
[2018-07-16] MEDS: INSULIN GLARGINE 100 UNIT/ML SUBCUT SCH (21:03)
[2018-07-16] MEDS: BACLOFEN 10 MG TABLET PO SCH (21:03)
[2018-07-16] MEDS: PREGABALIN 75 MG CAPSULE PO SCH (21:03)
[2018-07-16 22:22] LABS: Hematocrit 29.7 VOL% (35.7-47.0); Hemoglobin 9.3 GM/DL (12.0-16.0)
[2018-07-17] MEDS: INSULIN REGULAR 100 UNIT/ML SUBCUT SCH ×7 (01:35→23:44)
[2018-07-17 04:56] LABS: Basophils # 0.1 10*3/uL (0.0-0.2); Basophils % 0.6 % (0.0-0.8); Eosinophils # 0.3 10*3/uL (0.0-0.87); Eosinophils % 3.5 % (0.00-10.9); Hematocrit 28.3 VOL% (35.7-47.0); Immature Granulocytes % 0.5 %; Immature Granulocytes Absolute 0.05 #; Lymphocytes # 3.4 10*3/uL (1.4-4.0); Lymphocytes % 35.1 % (21.3-54.2); Mean Corpuscular HGB Conc 31.8 GM/DL (32-36); Mean Corpuscular Hemoglobin 29 PG (27-34); Mean Corpuscular Volume 90.4 FL (87-102); Mean Platelet Volume 11.6 FL (9.6-12.0); Monocytes # 0.7 10*3/uL (0.11-0.8); Monocytes % 6.8 % (1.7-12.7); Neutrophils # 5.2 10*3/uL (1.4-7.4); Neutrophils % 53.5 % (38.7-73.9); Platelet Count 211 T/CUMM (130-400); Red Blood Count 3.13 MC/CUMM (3.8-5.5); Red Cell Distribution Width 13.5 % (9.3-17.3); White Blood Count 9.8 T/CUMM (4-12)
[2018-07-17 05:13] LABS: Calcium 8.4 MG/DL (8.5-10.1); Osmolality,Calculated 308.4 MOS/KG (273-304); Potassium 4.1 MMOL/L (3.5-5.1)
[2018-07-17 05:19] LABS: % Iron Saturation 14.1 % (18-50); Ferritin 80.3 ng/ml (8-252)
[2018-07-17] MEDS: PANTOPRAZOLE 40 MG TABLET PO SCH ×2 (08:32→20:58)
[2018-07-17] MEDS: OMEGA 3 ACID ETHYL ESTERS 1 GM CAPSULE PO SCH ×2 (08:32→20:58)
[2018-07-17] MEDS: GLIMEPIRIDE 4 MG TABLET PO SCH (08:32)
[2018-07-17] MEDS: amLODIPine 10 MG TABLET PO SCH (08:33)
[2018-07-17] MEDS: ASPIRIN CHEW 81 MG TABLET PO SCH (08:33)
[2018-07-17] MEDS: CARVEDILOL 6.25 MG TABLET PO SCH (08:33)
[2018-07-17] MEDS: LEVOTHYROXINE 137 MCG TABLET PO SCH (08:33)
[2018-07-17 09:52] LABS: Apearance,Urine Slightly Hazy (Clear); Bacteria,Urine Occasional /HPF (Few); Bilirubin,Urine Negative (Negative); Blood, Urine Large mg/dL (Negative); Glucose,Urine (UA) 50 mg/dL (Negative); Ketones,Urine Negative (Negative); Nitrite,Urine Negative (Negative); Protein,Urine 100 MG/DL; RBC,Urine 235 /HPF (0-4); Squamous Epithelial Cell,Urine Occasional /HPF (0-10); Urine Color Red (Yellow); Urine Specific Gravity 1.006 (1.001-1.035); Urine Urobilinogen < 2.0 EU/DL (0.2-1.0); WBC,Urine 156 /HPF (0-6)
[2018-07-17] MEDS: hydrALAZINE 25 MG TABLET PO SCH ×2 (10:24→20:57)
[2018-07-17] MEDS: SODIUM CHLORIDE 0.45% 1,000 ML IV SCH (16:14)
[2018-07-17] MEDS: FERROUS SULFATE 325 MG TABLET PO SCH (20:57)
[2018-07-17] MEDS: CITALOPRAM 20 MG TABLET PO SCH (20:57)
[2018-07-17] MEDS: ROSUVASTATIN 20 MG TABLET PO SCH (20:57)
[2018-07-17] MEDS: CARVEDILOL 3.125 MG TABLET PO SCH (20:57)
[2018-07-17] MEDS: ESTRADIOL 0.01% VAG CREAM 42.5 GM TUBE VAG SCH (20:57)
[2018-07-17] MEDS: INSULIN GLARGINE 100 UNIT/ML SUBCUT SCH (20:57)
[2018-07-17] MEDS: BACLOFEN 10 MG TABLET PO SCH (20:58)
[2018-07-17] MEDS: PREGABALIN 75 MG CAPSULE PO SCH (20:58)
[2018-07-18] MEDS: INSULIN REGULAR 100 UNIT/ML SUBCUT SCH ×5 (04:07→21:25)
[2018-07-18 04:32] LABS: Basophils % 0.4 % (0.0-0.8); Eosinophils # 0.4 10*3/uL (0.0-0.87); Eosinophils % 4.6 % (0.00-10.9); Hematocrit 28.9 VOL% (35.7-47.0); Hemoglobin 9.1 GM/DL (12.0-16.0); Immature Granulocytes % 0.3 %; Immature Granulocytes Absolute 0.03 #; Lymphocytes # 2.3 10*3/uL (1.4-4.0); Lymphocytes % 25.8 % (21.3-54.2); Mean Corpuscular HGB Conc 31.5 GM/DL (32-36); Mean Corpuscular Hemoglobin 28 PG (27-34); Mean Corpuscular Volume 90.3 FL (87-102); Mean Platelet Volume 11.7 FL (9.6-12.0); Monocytes # 0.8 10*3/uL (0.11-0.8); Monocytes % 8.5 % (1.7-12.7); Neutrophils # 5.4 10*3/uL (1.4-7.4); Neutrophils % 60.4 % (38.7-73.9); Platelet Count 204 T/CUMM (130-400); Red Cell Distribution Width 12.8 % (9.3-17.3); White Blood Count 8.9 T/CUMM (4-12)
[2018-07-18 04:55] LABS: Calcium 8.2 MG/DL (8.5-10.1); Osmolality,Calculated 300.3 MOS/KG (273-304); Potassium 4.4 MMOL/L (3.5-5.1)
[2018-07-18] MEDS ORDERED: PROPOFOL 200 MG/20 ML VIAL IV ONE (10:00)
[2018-07-18] MEDS ORDERED: LIDOCAINE 100 MG/5 ML SYRINGE ONE (10:00)
[2018-07-18] MEDS: OMEGA 3 ACID ETHYL ESTERS 1 GM CAPSULE PO SCH ×2 (10:10→21:23)
[2018-07-18] MEDS: amLODIPine 10 MG TABLET PO SCH (10:10)
[2018-07-18] MEDS: LEVOTHYROXINE 137 MCG TABLET PO SCH (10:10)
[2018-07-18] MEDS: GLIMEPIRIDE 4 MG TABLET PO SCH (10:11)
[2018-07-18] MEDS: PANTOPRAZOLE 40 MG TABLET PO SCH ×2 (10:11→21:24)
[2018-07-18] MEDS: DOCUSATE SODIUM 100 MG CAPSULE PO SCH (10:11)
[2018-07-18] MEDS: hydrALAZINE 25 MG TABLET PO SCH ×3 (10:11→21:24)
[2018-07-18] MEDS: CARVEDILOL 3.125 MG TABLET PO SCH ×2 (10:11→21:23)
[2018-07-18] MEDS: ASPIRIN CHEW 81 MG TABLET PO SCH (10:11)
[2018-07-18] MEDS: FERROUS SULFATE 325 MG TABLET PO SCH ×2 (10:12→21:24)
[2018-07-18] MEDS: PREGABALIN 75 MG CAPSULE PO SCH (21:23)
[2018-07-18] MEDS: ROSUVASTATIN 20 MG TABLET PO SCH (21:24)
[2018-07-18] MEDS: CITALOPRAM 20 MG TABLET PO SCH (21:24)
[2018-07-18] MEDS: ACETAMINOPHEN 325 MG TABLET PO PRN (21:24)
[2018-07-18] MEDS: INSULIN GLARGINE 100 UNIT/ML SUBCUT SCH (21:25)
[2018-07-18] MEDS: BACLOFEN 10 MG TABLET PO SCH (21:25)
[2018-07-18] MEDS: ESTRADIOL 0.01% VAG CREAM 42.5 GM TUBE VAG SCH (21:26)
[2018-07-19] MEDS: INSULIN REGULAR 100 UNIT/ML SUBCUT SCH ×6 (00:31→22:48)
[2018-07-19] MEDS: SODIUM CHLORIDE 0.45% 1,000 ML IV SCH ×3 (00:32→13:03)
[2018-07-19 05:31] LABS: Basophils % 0.4 % (0.0-0.8); Eosinophils # 0.4 10*3/uL (0.0-0.87); Eosinophils % 4.4 % (0.00-10.9); Hematocrit 31.8 VOL% (35.7-47.0); Hemoglobin 9.8 GM/DL (12.0-16.0); Immature Granulocytes % 0.3 %; Immature Granulocytes Absolute 0.03 #; Lymphocytes # 2.9 10*3/uL (1.4-4.0); Lymphocytes % 30.5 % (21.3-54.2); Mean Corpuscular HGB Conc 30.8 GM/DL (32-36); Mean Corpuscular Hemoglobin 28 PG (27-34); Mean Corpuscular Volume 91.6 FL (87-102); Mean Platelet Volume 11.7 FL (9.6-12.0); Monocytes # 0.9 10*3/uL (0.11-0.8); Monocytes % 9.2 % (1.7-12.7); Neutrophils # 5.2 10*3/uL (1.4-7.4); Neutrophils % 55.2 % (38.7-73.9); Platelet Count 216 T/CUMM (130-400); Red Blood Count 3.47 MC/CUMM (3.8-5.5); Red Cell Distribution Width 13.1 % (9.3-17.3); White Blood Count 9.5 T/CUMM (4-12)
[2018-07-19 05:49] LABS: Calcium 8.9 MG/DL (8.5-10.1); Osmolality,Calculated 297.4 MOS/KG (273-304); Potassium 4.2 MMOL/L (3.5-5.1)
[2018-07-19] MEDS: LEVOTHYROXINE 137 MCG TABLET PO SCH (06:40)
[2018-07-19] MEDS: GLIMEPIRIDE 4 MG TABLET PO SCH (08:37)
[2018-07-19] MEDS: OMEGA 3 ACID ETHYL ESTERS 1 GM CAPSULE PO SCH ×2 (08:37→22:45)
[2018-07-19] MEDS: FERROUS SULFATE 325 MG TABLET PO SCH ×2 (08:37→22:46)
[2018-07-19] MEDS: amLODIPine 10 MG TABLET PO SCH (08:37)
[2018-07-19] MEDS: DOCUSATE SODIUM 100 MG CAPSULE PO SCH (08:37)
[2018-07-19] MEDS: PANTOPRAZOLE 40 MG TABLET PO SCH ×2 (08:38→22:52)
[2018-07-19] MEDS: ASPIRIN CHEW 81 MG TABLET PO SCH (08:38)
[2018-07-19] MEDS: CARVEDILOL 3.125 MG TABLET PO SCH ×2 (08:38→22:46)
[2018-07-19] MEDS: hydrALAZINE 25 MG TABLET PO SCH ×3 (08:38→22:47)
[2018-07-19] MEDS ORDERED: ERTAPENEM 1,000 MG in SODIUM CHLORIDE 0.9% 100 ML IV SCH (18:00)
[2018-07-19] MEDS: cefTRIAXone 1,000 MG in SYRINGE 1 EACH IV SCH (18:07)
[2018-07-19] MEDS: PREGABALIN 75 MG CAPSULE PO SCH (22:46)
[2018-07-19] MEDS: ROSUVASTATIN 20 MG TABLET PO SCH (22:46)
[2018-07-19] MEDS: CITALOPRAM 20 MG TABLET PO SCH (22:46)
[2018-07-19] MEDS: BACLOFEN 10 MG TABLET PO SCH (22:47)
[2018-07-19] MEDS: INSULIN GLARGINE 100 UNIT/ML SUBCUT SCH (22:48)
[2018-07-19] MEDS: ESTRADIOL 0.01% VAG CREAM 42.5 GM TUBE VAG SCH (22:48)
[2018-07-19] MEDS: ACETAMINOPHEN 325 MG TABLET PO PRN (22:50)
[2018-07-20] MEDS: INSULIN REGULAR 100 UNIT/ML SUBCUT SCH ×6 (01:13→21:05)
[2018-07-20 04:43] LABS: Basophils # 0.1 10*3/uL (0.0-0.2); Basophils % 0.6 % (0.0-0.8); Eosinophils # 0.4 10*3/uL (0.0-0.87); Eosinophils % 4.2 % (0.00-10.9); Hematocrit 34.1 VOL% (35.7-47.0); Hemoglobin 10.8 GM/DL (12.0-16.0); Immature Granulocytes % 0.3 %; Immature Granulocytes Absolute 0.03 #; Lymphocytes # 2.7 10*3/uL (1.4-4.0); Mean Corpuscular HGB Conc 31.7 GM/DL (32-36); Mean Corpuscular Hemoglobin 29 PG (27-34); Mean Corpuscular Volume 90.2 FL (87-102); Mean Platelet Volume 11.3 FL (9.6-12.0); Monocytes # 0.7 10*3/uL (0.11-0.8); Monocytes % 8.2 % (1.7-12.7); Neutrophils # 4.8 10*3/uL (1.4-7.4); Neutrophils % 55.7 % (38.7-73.9); Platelet Count 226 T/CUMM (130-400); Red Blood Count 3.78 MC/CUMM (3.8-5.5); Red Cell Distribution Width 12.8 % (9.3-17.3); White Blood Count 8.6 T/CUMM (4-12)
[2018-07-20 05:06] LABS: Osmolality,Calculated 297.4 MOS/KG (273-304); Potassium 4.4 MMOL/L (3.5-5.1)
[2018-07-20] MEDS: LEVOTHYROXINE 137 MCG TABLET PO SCH (06:47)
[2018-07-20] MEDS: GLIMEPIRIDE 4 MG TABLET PO SCH (09:35)
[2018-07-20] MEDS: OMEGA 3 ACID ETHYL ESTERS 1 GM CAPSULE PO SCH ×2 (09:35→21:06)
[2018-07-20] MEDS: DOCUSATE SODIUM 100 MG CAPSULE PO SCH (09:35)
[2018-07-20] MEDS: amLODIPine 10 MG TABLET PO SCH (09:36)
[2018-07-20] MEDS: hydrALAZINE 25 MG TABLET PO SCH ×3 (09:36→21:11)
[2018-07-20] MEDS: PANTOPRAZOLE 40 MG TABLET PO SCH ×2 (09:36→21:11)
[2018-07-20] MEDS: CARVEDILOL 3.125 MG TABLET PO SCH ×2 (09:36→21:11)
[2018-07-20] MEDS: FERROUS SULFATE 325 MG TABLET PO SCH ×2 (09:36→21:11)
[2018-07-20] MEDS: ASPIRIN CHEW 81 MG TABLET PO SCH (09:37)
[2018-07-20] MEDS: ENOXAPARIN 30 MG/0.3 ML SYRINGE SUBCUT SCH (18:33)
[2018-07-20] MEDS: cefTRIAXone 1,000 MG in SYRINGE 1 EACH IV SCH (18:37)
[2018-07-20] MEDS: SODIUM CHLORIDE 0.45% 1,000 ML IV SCH (20:17)
[2018-07-20] MEDS: ROSUVASTATIN 20 MG TABLET PO SCH (21:06)
[2018-07-20] MEDS: INSULIN GLARGINE 100 UNIT/ML SUBCUT SCH (21:06)
[2018-07-20] MEDS: PREGABALIN 75 MG CAPSULE PO SCH (21:10)
[2018-07-20] MEDS: BACLOFEN 10 MG TABLET PO SCH (21:11)
[2018-07-20] MEDS: ESTRADIOL 0.01% VAG CREAM 42.5 GM TUBE VAG SCH (21:11)
[2018-07-20] MEDS: CITALOPRAM 20 MG TABLET PO SCH (21:11)
[2018-07-21] MEDS: SODIUM CHLORIDE 0.45% 1,000 ML IV SCH ×3 (00:38→23:33)
[2018-07-21] MEDS: INSULIN REGULAR 100 UNIT/ML SUBCUT SCH ×6 (00:38→22:35)
[2018-07-21 04:21] LABS: Basophils # 0.1 10*3/uL (0.0-0.2); Basophils % 0.7 % (0.0-0.8); Eosinophils # 0.4 10*3/uL (0.0-0.87); Eosinophils % 4.2 % (0.00-10.9); Hematocrit 34.1 VOL% (35.7-47.0); Hemoglobin 10.8 GM/DL (12.0-16.0); Immature Granulocytes % 0.4 %; Immature Granulocytes Absolute 0.04 #; Lymphocytes # 2.7 10*3/uL (1.4-4.0); Lymphocytes % 30.2 % (21.3-54.2); Mean Corpuscular HGB Conc 31.7 GM/DL (32-36); Mean Corpuscular Hemoglobin 29 PG (27-34); Mean Corpuscular Volume 90.2 FL (87-102); Mean Platelet Volume 11.5 FL (9.6-12.0); Monocytes # 0.9 10*3/uL (0.11-0.8); Monocytes % 9.7 % (1.7-12.7); Neutrophils % 54.8 % (38.7-73.9); Platelet Count 232 T/CUMM (130-400); Red Blood Count 3.78 MC/CUMM (3.8-5.5); Red Cell Distribution Width 12.7 % (9.3-17.3); White Blood Count 9.1 T/CUMM (4-12)
[2018-07-21 04:35] LABS: Calcium 8.7 MG/DL (8.5-10.1); Osmolality,Calculated 299.1 MOS/KG (273-304); Potassium 4.5 MMOL/L (3.5-5.1)
[2018-07-21] MEDS: LEVOTHYROXINE 137 MCG TABLET PO SCH (06:47)
[2018-07-21] MEDS ORDERED: ceFAZolin 1,000 MG VIAL IRRIG ONE (08:38)
[2018-07-21] MEDS ORDERED: ceFAZolin 1,000 MG in SYRINGE 1 EACH IV ONE (08:38)
[2018-07-21] MEDS ORDERED: HEPARIN/NACL 0.9% 2 UNITS/ML 500 ML IV ONE (09:27)
[2018-07-21] MEDS ORDERED: LIDOCAINE 1% 20 ML VIAL ONE (09:27)
[2018-07-21] MEDS ORDERED: ceFAZolin 1,000 MG VIAL ONE (09:27)
[2018-07-21] MEDS ORDERED: TISSUE ADHESIVE 1 EACH APPLICATOR TOP ONE (09:28)
[2018-07-21] MEDS ORDERED: MIDAZOLAM 2 MG/2 ML VIAL ONE ×2 (09:36→10:32)
[2018-07-21] MEDS ORDERED: fentaNYL 100 MCG/2 ML VIAL ONE ×2 (09:36→10:32)
[2018-07-21] MEDS: PANTOPRAZOLE 40 MG TABLET PO SCH ×2 (11:49→22:32)
[2018-07-21] MEDS: ASPIRIN CHEW 81 MG TABLET PO SCH (11:49)
[2018-07-21] MEDS: OMEGA 3 ACID ETHYL ESTERS 1 GM CAPSULE PO SCH ×2 (11:50→22:34)
[2018-07-21] MEDS: hydrALAZINE 25 MG TABLET PO SCH ×3 (11:50→22:34)
[2018-07-21] MEDS: GLIMEPIRIDE 4 MG TABLET PO SCH (11:51)
[2018-07-21] MEDS: amLODIPine 10 MG TABLET PO SCH (11:51)
[2018-07-21] MEDS: DOCUSATE SODIUM 100 MG CAPSULE PO SCH (11:51)
[2018-07-21] MEDS: FERROUS SULFATE 325 MG TABLET PO SCH ×2 (11:52→22:31)
[2018-07-21] MEDS: ENOXAPARIN 30 MG/0.3 ML SYRINGE SUBCUT SCH (11:55)
[2018-07-21] MEDS: oxyCODONE/ACETAMINOPHEN 5-325 MG TABLET PO PRN ×2 (12:40→20:30)
[2018-07-21] MEDS: ceFAZolin 1,000 MG in SYRINGE 1 EACH IV SCH (16:57)
[2018-07-21] MEDS: cefTRIAXone 1,000 MG in SYRINGE 1 EACH IV SCH (19:14)
[2018-07-21] MEDS: CITALOPRAM 20 MG TABLET PO SCH (22:32)
[2018-07-21] MEDS: ROSUVASTATIN 20 MG TABLET PO SCH (22:32)
[2018-07-21] MEDS: PREGABALIN 75 MG CAPSULE PO SCH (22:33)
[2018-07-21] MEDS: BACLOFEN 10 MG TABLET PO SCH (22:33)
[2018-07-21] MEDS: INSULIN GLARGINE 100 UNIT/ML SUBCUT SCH (22:36)
[2018-07-21] MEDS: ESTRADIOL 0.01% VAG CREAM 42.5 GM TUBE VAG SCH (23:00)
[2018-07-22] MEDS: oxyCODONE/ACETAMINOPHEN 5-325 MG TABLET PO PRN (01:04)
[2018-07-22] MEDS: INSULIN REGULAR 100 UNIT/ML SUBCUT SCH ×5 (01:05→17:54)
[2018-07-22] MEDS: ceFAZolin 1,000 MG in SYRINGE 1 EACH IV SCH (01:05)
[2018-07-22 03:43] LABS: Basophils # 0.1 10*3/uL (0.0-0.2); Basophils % 0.7 % (0.0-0.8); Eosinophils # 0.4 10*3/uL (0.0-0.87); Eosinophils % 4.6 % (0.00-10.9); Hematocrit 30.4 VOL% (35.7-47.0); Hemoglobin 9.5 GM/DL (12.0-16.0); Immature Granulocytes % 0.5 %; Immature Granulocytes Absolute 0.04 #; Lymphocytes # 2.6 10*3/uL (1.4-4.0); Lymphocytes % 29.8 % (21.3-54.2); Mean Corpuscular HGB Conc 31.3 GM/DL (32-36); Mean Corpuscular Hemoglobin 28 PG (27-34); Mean Corpuscular Volume 90.7 FL (87-102); Mean Platelet Volume 11.4 FL (9.6-12.0); Monocytes # 0.8 10*3/uL (0.11-0.8); Monocytes % 8.7 % (1.7-12.7); Neutrophils # 4.9 10*3/uL (1.4-7.4); Neutrophils % 55.7 % (38.7-73.9); Platelet Count 224 T/CUMM (130-400); Red Blood Count 3.35 MC/CUMM (3.8-5.5); Red Cell Distribution Width 12.8 % (9.3-17.3); White Blood Count 8.8 T/CUMM (4-12)
[2018-07-22 04:09] LABS: Calcium 8.3 MG/DL (8.5-10.1); Osmolality,Calculated 288.7 MOS/KG (273-304); Potassium 4.8 MMOL/L (3.5-5.1)
[2018-07-22] MEDS: LEVOTHYROXINE 137 MCG TABLET PO SCH (06:46)
[2018-07-22] MEDS ORDERED: amLODIPine 5 MG TABLET PO SCH (09:00)
[2018-07-22] MEDS ORDERED: CARVEDILOL 6.25 MG TABLET PO SCH (09:00)
[2018-07-22] MEDS: hydrALAZINE 25 MG TABLET PO SCH ×2 (10:31→15:30)
[2018-07-22] MEDS: DOCUSATE SODIUM 100 MG CAPSULE PO SCH (13:15)
[2018-07-22] MEDS: PANTOPRAZOLE 40 MG TABLET PO SCH (13:16)
[2018-07-22] MEDS: GLIMEPIRIDE 4 MG TABLET PO SCH (13:16)
[2018-07-22] MEDS: OMEGA 3 ACID ETHYL ESTERS 1 GM CAPSULE PO SCH (13:17)
[2018-07-22] MEDS: FERROUS SULFATE 325 MG TABLET PO SCH (13:17)
[2018-07-22] MEDS: ASPIRIN CHEW 81 MG TABLET PO SCH (13:18)
[2018-07-22] MEDS: ENOXAPARIN 30 MG/0.3 ML SYRINGE SUBCUT SCH (13:19)
[2018-07-22] MEDS ORDERED: CLOPIDOGREL 75 MG TABLET PO ONE (14:10)
[2018-07-22 16:34] VITALS: BP 170/73
[2018-07-22] MEDS ORDERED: CARVEDILOL 12.5 MG TABLET PO SCH (21:00)
== END 2018-07-22 17:00 | disposition home health service (06) | DRG 242 ==
LOC: EDUNIT# → EDBD → N.ED 21:14 → N.EDINP 23:58 → SUATTDRO 23:58 → N.TELEN 07-15 00:19
PROVIDERS: ADMIT Internal Medicine; ATTEND Internal Medicine

== ENCOUNTER 2018-12-16 15:46 | Observation (INO) ==
[2018-12-16] MEDS ORDERED: ONDANSETRON 4 MG/2 ML VIAL IV STA (16:14)
[2018-12-16] MEDS ORDERED: MECLIZINE 25 MG TABLET PO STA (16:17)
[2018-12-16 17:03] LABS: Basophils % 0.5 % (0.0-0.8); Eosinophils # 0.3 10*3/uL (0.0-0.87); Eosinophils % 4.2 % (0.00-10.9); Hemoglobin 11.6 GM/DL (12.0-16.0); Immature Granulocytes % 0.5 %; Immature Granulocytes Absolute 0.04 #; Lymphocytes # 2.6 10*3/uL (1.4-4.0); Lymphocytes % 33.8 % (21.3-54.2); Mean Corpuscular HGB Conc 34.1 GM/DL (32-36); Mean Corpuscular Volume 85.6 FL (87-102); Monocytes % 5.8 % (1.7-12.7); Neutrophils % 55.2 % (38.7-73.9); Platelet Count 179 T/CUMM (130-400); Red Blood Count 3.97 MC/CUMM (3.8-5.5); Red Cell Distribution Width 12.7 % (9.3-17.3); White Blood Count 7.6 T/CUMM (4-12)
[2018-12-16 17:19] LABS: PT Patient Result 10.4 SECS
[2018-12-16 17:39] LABS: Albumin 3.5 G/DL (3.4-5.0); Bilirubin,Total 0.4 MG/DL (0.2-1.0); Calcium 8.6 MG/DL (8.5-10.1); Osmolality,Calculated 303.7 MOS/KG (273-304); Thyroid Stimulating Hormone 5.5 uIU/ml (0.358-3.74); Total Protein 7.7 G/DL (6.4-8.3)
[2018-12-16] MEDS ORDERED: SODIUM CHLORIDE 0.9% 1,000 ML IV STA (18:04)
[2018-12-16] MEDS ORDERED: GLUCAGON 1 MG VIAL IM PRN (18:32)
[2018-12-16] MEDS ORDERED: ONDANSETRON 4 MG/2 ML VIAL IV PRN (18:32)
[2018-12-16] MEDS ORDERED: DEXTROSE 50% 25 GM/50 ML VIAL IV PRN (18:32)
[2018-12-16] MEDS ORDERED: NITROGLYCERIN SL 0.4 MG TABLET SL PRN (18:40)
[2018-12-16] MEDS ORDERED: PNEUMOCOCCAL VACCINE (13 VALENT) 0.5 ML SYRINGE IM ONE (21:33)
[2018-12-16] MEDS: OMEGA 3 ACID ETHYL ESTERS 1 GM CAPSULE PO SCH (22:36)
[2018-12-16] MEDS: MECLIZINE 25 MG TABLET PO SCH (22:36)
[2018-12-16] MEDS: DOCUSATE SODIUM 100 MG CAPSULE PO PRN (22:36)
[2018-12-16] MEDS: PREGABALIN 75 MG CAPSULE PO SCH (22:36)
[2018-12-16] MEDS: CARVEDILOL 25 MG TABLET PO SCH (22:36)
[2018-12-16] MEDS: CITALOPRAM 40 MG TABLET PO SCH (22:37)
[2018-12-16] MEDS: BACLOFEN 10 MG TABLET PO SCH (22:37)
[2018-12-16] MEDS: ROSUVASTATIN 20 MG TABLET PO SCH (22:37)
[2018-12-16] MEDS: INSULIN REGULAR 100 UNIT/ML SUBCUT SCH (22:38)
[2018-12-16] MEDS: INSULIN GLARGINE 100 UNIT/ML SUBCUT SCH (22:38)
[2018-12-16] MEDS: SODIUM CHLORIDE 0.9% 1,000 ML IV SCH (22:38)
[2018-12-16] MEDS: ENOXAPARIN 30 MG/0.3 ML SYRINGE SUBCUT SCH (22:45)
[2018-12-17 00:47] LABS: Apearance,Urine CLEAR (Clear); Bacteria,Urine Occasional /HPF (Few); Bilirubin,Urine Negative (Negative); Blood, Urine Negative (Negative); Glucose,Urine (UA) 50 mg/dL (Negative); Ketones,Urine Negative (Negative); Nitrite,Urine Negative (Negative); Protein,Urine 30 MG/DL; Urine Color Straw (Yellow); Urine Specific Gravity 1.005 (1.001-1.035); Urine Urobilinogen < 2.0 EU/DL (0.2-1.0); WBC,Urine 1 /HPF (0-6)
[2018-12-17 00:54] LABS: Barbiturates Screen,Urine Negative (Negative); Benzodiazepines Screen,Urine Negative (Negative); Cannabinoid Screen,Urine Negative (Negative); Opiate Screen,Urine Negative (Negative); Phencyclidine Screen,Urine Negative (Negative)
[2018-12-17] MEDS: SODIUM CHLORIDE 0.9% 1,000 ML IV SCH ×3 (05:38→22:26)
[2018-12-17 05:51] LABS: Basophils % 0.6 % (0.0-0.8); Eosinophils # 0.3 10*3/uL (0.0-0.87); Eosinophils % 4.3 % (0.00-10.9); Hematocrit 26.9 VOL% (35.7-47.0); Hemoglobin 9.1 GM/DL (12.0-16.0); Immature Granulocytes % 0.3 %; Immature Granulocytes Absolute 0.02 #; Lymphocytes # 2.7 10*3/uL (1.4-4.0); Lymphocytes % 39.5 % (21.3-54.2); Mean Corpuscular HGB Conc 33.8 GM/DL (32-36); Mean Corpuscular Volume 86.8 FL (87-102); Mean Platelet Volume 12.1 FL (9.6-12.0); Monocytes % 7.3 % (1.7-12.7); Platelet Count 166 T/CUMM (130-400); White Blood Count 6.9 T/CUMM (4-12)
[2018-12-17 06:11] LABS: Calcium 8.3 MG/DL (8.5-10.1); Osmolality,Calculated 307.8 MOS/KG (273-304)
[2018-12-17] MEDS: LEVOTHYROXINE 137 MCG TABLET PO SCH (09:07)
[2018-12-17] MEDS: MULTIVITAMIN (BEROCCA) TABLET PO SCH (09:07)
[2018-12-17] MEDS: PREGABALIN 75 MG CAPSULE PO SCH ×3 (09:07→22:25)
[2018-12-17] MEDS: MECLIZINE 25 MG TABLET PO SCH ×3 (09:08→22:25)
[2018-12-17] MEDS: GLIMEPIRIDE 4 MG TABLET PO SCH (09:08)
[2018-12-17] MEDS: CARVEDILOL 25 MG TABLET PO SCH ×2 (09:08→22:25)
[2018-12-17] MEDS: CLOPIDOGREL 75 MG TABLET PO SCH (09:08)
[2018-12-17] MEDS: amLODIPine 5 MG TABLET PO SCH (09:08)
[2018-12-17] MEDS: BACLOFEN 10 MG TABLET PO SCH ×2 (09:08→22:25)
[2018-12-17] MEDS: OMEGA 3 ACID ETHYL ESTERS 1 GM CAPSULE PO SCH ×4 (09:08→22:26)
[2018-12-17] MEDS: INSULIN LISPRO 100 UNIT/ML SUBCUT SCH ×3 (09:20→16:32)
[2018-12-17] MEDS: INSULIN REGULAR 100 UNIT/ML SUBCUT SCH ×4 (09:21→22:40)
[2018-12-17] MEDS: ASPIRIN CHEW 81 MG TABLET PO SCH (09:22)
[2018-12-17] MEDS: LOSARTAN 50 MG TABLET PO SCH (09:25)
[2018-12-17] MEDS ORDERED: BENZOCAINE/MENTHOL LOZENGE 18/BOX PO PRN (13:50)
[2018-12-17] MEDS: AMOXICILLIN 500 MG CAPSULE PO SCH ×2 (14:06→22:25)
[2018-12-17] MEDS ORDERED: BISACODYL 5 MG TABLET PO PRN (16:08)
[2018-12-17] MEDS: ROSUVASTATIN 20 MG TABLET PO SCH (22:25)
[2018-12-17] MEDS: CITALOPRAM 40 MG TABLET PO SCH (22:25)
[2018-12-17] MEDS: NYSTATIN CREAM 15 GM TUBE TOP SCH (22:27)
[2018-12-17] MEDS: ENOXAPARIN 30 MG/0.3 ML SYRINGE SUBCUT SCH (22:27)
[2018-12-17] MEDS: INSULIN GLARGINE 100 UNIT/ML SUBCUT SCH (22:40)
[2018-12-18 05:35] LABS: Calcium 8.1 MG/DL (8.5-10.1); Osmolality,Calculated 303.8 MOS/KG (273-304)
[2018-12-18] MEDS: LEVOTHYROXINE 137 MCG TABLET PO SCH (07:20)
[2018-12-18] MEDS: PREGABALIN 75 MG CAPSULE PO SCH (09:32)
[2018-12-18] MEDS: CLOPIDOGREL 75 MG TABLET PO SCH (09:32)
[2018-12-18] MEDS: AMOXICILLIN 500 MG CAPSULE PO SCH ×2 (09:32→21:07)
[2018-12-18] MEDS: MULTIVITAMIN (BEROCCA) TABLET PO SCH (09:33)
[2018-12-18] MEDS: LOSARTAN 50 MG TABLET PO SCH (09:33)
[2018-12-18] MEDS: BACLOFEN 10 MG TABLET PO SCH (09:33)
[2018-12-18] MEDS: GLIMEPIRIDE 4 MG TABLET PO SCH (09:34)
[2018-12-18] MEDS: MECLIZINE 25 MG TABLET PO SCH ×3 (09:34→21:07)
[2018-12-18] MEDS: ASPIRIN CHEW 81 MG TABLET PO SCH (09:34)
[2018-12-18] MEDS: INSULIN LISPRO 100 UNIT/ML SUBCUT SCH ×3 (09:35→17:18)
[2018-12-18] MEDS: INSULIN REGULAR 100 UNIT/ML SUBCUT SCH ×4 (09:37→21:08)
[2018-12-18] MEDS: NYSTATIN CREAM 15 GM TUBE TOP SCH ×3 (09:38→21:09)
[2018-12-18] MEDS: OMEGA 3 ACID ETHYL ESTERS 1 GM CAPSULE PO SCH ×4 (09:39→21:07)
[2018-12-18] MEDS: amLODIPine 5 MG TABLET PO SCH (09:44)
[2018-12-18] MEDS: CARVEDILOL 25 MG TABLET PO SCH ×2 (09:44→21:07)
[2018-12-18] MEDS: SODIUM CHLORIDE 0.9% 1,000 ML IV SCH ×2 (11:50→20:00)
[2018-12-18] MEDS: INSULIN GLARGINE 100 UNIT/ML SUBCUT SCH (21:07)
[2018-12-18] MEDS: CITALOPRAM 40 MG TABLET PO SCH (21:07)
[2018-12-18] MEDS: ENOXAPARIN 30 MG/0.3 ML SYRINGE SUBCUT SCH (21:07)
[2018-12-18] MEDS: ROSUVASTATIN 20 MG TABLET PO SCH (21:07)
[2018-12-19] MEDS: SODIUM CHLORIDE 0.9% 1,000 ML IV SCH (03:50)
[2018-12-19 04:56] LABS: Basophils % 0.7 % (0.0-0.8); Eosinophils # 0.2 10*3/uL (0.0-0.87); Eosinophils % 4.3 % (0.00-10.9); Hematocrit 28.2 VOL% (35.7-47.0); Hemoglobin 9.2 GM/DL (12.0-16.0); Immature Granulocytes % 0.2 %; Immature Granulocytes Absolute 0.01 #; Lymphocytes % 35.5 % (21.3-54.2); Mean Corpuscular HGB Conc 32.6 GM/DL (32-36); Mean Corpuscular Volume 89.2 FL (87-102); Mean Platelet Volume 12.8 FL (9.6-12.0); Monocytes % 7.7 % (1.7-12.7); Neutrophils % 51.6 % (38.7-73.9); Platelet Count 152 T/CUMM (130-400); Red Blood Count 3.16 MC/CUMM (3.8-5.5); Red Cell Distribution Width 13.2 % (9.3-17.3); White Blood Count 5.6 T/CUMM (4-12)
[2018-12-19 05:32] LABS: Calcium 8.1 MG/DL (8.5-10.1); Osmolality,Calculated 310.3 MOS/KG (273-304)
[2018-12-19] MEDS: LEVOTHYROXINE 137 MCG TABLET PO SCH (05:44)
[2018-12-19] MEDS: INSULIN REGULAR 100 UNIT/ML SUBCUT SCH ×4 (08:42→23:06)
[2018-12-19] MEDS: NYSTATIN CREAM 15 GM TUBE TOP SCH ×3 (08:42→22:55)
[2018-12-19] MEDS: ASPIRIN CHEW 81 MG TABLET PO SCH (08:43)
[2018-12-19] MEDS: amLODIPine 5 MG TABLET PO SCH (08:43)
[2018-12-19] MEDS: CARVEDILOL 25 MG TABLET PO SCH ×2 (08:43→22:55)
[2018-12-19] MEDS: INSULIN LISPRO 100 UNIT/ML SUBCUT SCH ×3 (08:43→16:36)
[2018-12-19] MEDS: MULTIVITAMIN (BEROCCA) TABLET PO SCH (08:43)
[2018-12-19] MEDS: OMEGA 3 ACID ETHYL ESTERS 1 GM CAPSULE PO SCH ×5 (08:44→22:54)
[2018-12-19] MEDS: LOSARTAN 50 MG TABLET PO SCH (08:44)
[2018-12-19] MEDS: AMOXICILLIN 500 MG CAPSULE PO SCH ×2 (08:44→22:55)
[2018-12-19] MEDS: MECLIZINE 25 MG TABLET PO SCH ×3 (08:44→22:54)
[2018-12-19] MEDS: GLIMEPIRIDE 4 MG TABLET PO SCH (08:44)
[2018-12-19] MEDS: CLOPIDOGREL 75 MG TABLET PO SCH (08:44)
[2018-12-19] MEDS: LACTATED RINGERS 1,000 ML IV SCH (12:20)
[2018-12-19] MEDS: CITALOPRAM 40 MG TABLET PO SCH (22:53)
[2018-12-19] MEDS: ROSUVASTATIN 20 MG TABLET PO SCH (22:56)
[2018-12-19] MEDS: ENOXAPARIN 30 MG/0.3 ML SYRINGE SUBCUT SCH (22:56)
[2018-12-19] MEDS: INSULIN GLARGINE 100 UNIT/ML SUBCUT SCH (23:05)
[2018-12-20] MEDS: LACTATED RINGERS 1,000 ML IV SCH ×2 (05:00→07:58)
[2018-12-20] MEDS: LEVOTHYROXINE 137 MCG TABLET PO SCH ×2 (05:23→07:19)
[2018-12-20 06:02] LABS: Basophils % 0.6 % (0.0-0.8); Eosinophils # 0.3 10*3/uL (0.0-0.87); Eosinophils % 4.2 % (0.00-10.9); Hematocrit 28.7 VOL% (35.7-47.0); Hemoglobin 9.4 GM/DL (12.0-16.0); Immature Granulocytes % 0.3 %; Immature Granulocytes Absolute 0.02 #; Lymphocytes # 1.8 10*3/uL (1.4-4.0); Lymphocytes % 26.3 % (21.3-54.2); Mean Corpuscular HGB Conc 32.8 GM/DL (32-36); Mean Corpuscular Volume 89.7 FL (87-102); Mean Platelet Volume 12.6 FL (9.6-12.0); Monocytes % 7.9 % (1.7-12.7); Neutrophils % 60.7 % (38.7-73.9); Platelet Count 164 T/CUMM (130-400); Red Cell Distribution Width 13.6 % (9.3-17.3); White Blood Count 6.9 T/CUMM (4-12)
[2018-12-20 06:30] LABS: Calcium 8.6 MG/DL (8.5-10.1); Osmolality,Calculated 304.7 MOS/KG (273-304)
[2018-12-20] MEDS ORDERED: hydrALAZINE 20 MG/1 ML VIAL IV PRN (07:54)
[2018-12-20] MEDS: INSULIN REGULAR 100 UNIT/ML SUBCUT SCH ×4 (08:24→21:55)
[2018-12-20] MEDS: CARVEDILOL 25 MG TABLET PO SCH ×2 (08:25→21:52)
[2018-12-20] MEDS: OMEGA 3 ACID ETHYL ESTERS 1 GM CAPSULE PO SCH ×4 (08:25→21:52)
[2018-12-20] MEDS: MECLIZINE 25 MG TABLET PO SCH ×3 (08:25→21:51)
[2018-12-20] MEDS: MULTIVITAMIN (BEROCCA) TABLET PO SCH (08:25)
[2018-12-20] MEDS: CLOPIDOGREL 75 MG TABLET PO SCH (08:25)
[2018-12-20] MEDS: amLODIPine 5 MG TABLET PO SCH (08:25)
[2018-12-20] MEDS: GLIMEPIRIDE 4 MG TABLET PO SCH (08:25)
[2018-12-20] MEDS: AMOXICILLIN 500 MG CAPSULE PO SCH ×2 (08:25→21:51)
[2018-12-20] MEDS: SODIUM CHLORIDE 0.9% 1,000 ML IV SCH ×2 (08:26→17:42)
[2018-12-20] MEDS: INSULIN LISPRO 100 UNIT/ML SUBCUT SCH ×3 (08:26→16:28)
[2018-12-20] MEDS: NYSTATIN CREAM 15 GM TUBE TOP SCH ×3 (08:28→21:53)
[2018-12-20] MEDS: ASPIRIN CHEW 81 MG TABLET PO SCH (08:28)
[2018-12-20] MEDS ORDERED: hydroCHLOROthiazide 12.5 MG CAPSULE PO SCH (09:00)
[2018-12-20] MEDS ORDERED: hydrALAZINE 25 MG TABLET PO SCH (09:00)
[2018-12-20] MEDS: DOCUSATE SODIUM 100 MG CAPSULE PO PRN (21:51)
[2018-12-20] MEDS: ROSUVASTATIN 20 MG TABLET PO SCH (21:53)
[2018-12-20] MEDS: INSULIN GLARGINE 100 UNIT/ML SUBCUT SCH (21:54)
[2018-12-20] MEDS: CITALOPRAM 40 MG TABLET PO SCH (21:54)
[2018-12-20] MEDS: ENOXAPARIN 30 MG/0.3 ML SYRINGE SUBCUT SCH (21:56)
[2018-12-21] MEDS: SODIUM CHLORIDE 0.9% 1,000 ML IV SCH (03:38)
[2018-12-21 03:44] LABS: Basophils % 0.4 % (0.0-0.8); Eosinophils # 0.2 10*3/uL (0.0-0.87); Hematocrit 26.9 VOL% (35.7-47.0); Hemoglobin 8.7 GM/DL (12.0-16.0); Immature Granulocytes % 0.6 %; Immature Granulocytes Absolute 0.04 #; Lymphocytes # 2.6 10*3/uL (1.4-4.0); Lymphocytes % 36.9 % (21.3-54.2); Mean Corpuscular HGB Conc 32.3 GM/DL (32-36); Mean Corpuscular Volume 90.9 FL (87-102); Mean Platelet Volume 12.6 FL (9.6-12.0); Neutrophils % 51.1 % (38.7-73.9); Platelet Count 157 T/CUMM (130-400); Red Blood Count 2.96 MC/CUMM (3.8-5.5); Red Cell Distribution Width 13.8 % (9.3-17.3)
[2018-12-21 04:13] LABS: Calcium 8.4 MG/DL (8.5-10.1); Osmolality,Calculated 305.7 MOS/KG (273-304)
[2018-12-21] MEDS: LEVOTHYROXINE 137 MCG TABLET PO SCH (05:53)
[2018-12-21 08:17] VITALS: BP 174/65
[2018-12-21] MEDS: AMOXICILLIN 500 MG CAPSULE PO SCH (08:19)
[2018-12-21] MEDS: MECLIZINE 25 MG TABLET PO SCH (08:19)
[2018-12-21] MEDS: CLOPIDOGREL 75 MG TABLET PO SCH (08:19)
[2018-12-21] MEDS: MULTIVITAMIN (BEROCCA) TABLET PO SCH (08:19)
[2018-12-21] MEDS: CARVEDILOL 25 MG TABLET PO SCH (08:19)
[2018-12-21] MEDS: amLODIPine 5 MG TABLET PO SCH (08:19)
[2018-12-21] MEDS: INSULIN REGULAR 100 UNIT/ML SUBCUT SCH (08:19)
[2018-12-21] MEDS: ASPIRIN CHEW 81 MG TABLET PO SCH (08:19)
[2018-12-21] MEDS: OMEGA 3 ACID ETHYL ESTERS 1 GM CAPSULE PO SCH ×2 (08:19→08:21)
[2018-12-21] MEDS: NYSTATIN CREAM 15 GM TUBE TOP SCH (08:20)
[2018-12-21] MEDS: GLIMEPIRIDE 4 MG TABLET PO SCH (08:20)
[2018-12-21] MEDS: INSULIN LISPRO 100 UNIT/ML SUBCUT SCH (08:20)
== END 2018-12-21 12:11 | disposition home health service (06) ==
LOC: N.ED 15:46 → SUATTDRO 18:32 → N.EDINP 18:32 → INTOOBSV 18:32 → N.2E 20:22
PROVIDERS: ADMIT Internal Medicine Cardiovascular Disease; ATTEND Emergency Medicine

== ENCOUNTER 2019-01-10 19:12 | Observation (INO) ==
[2019-01-10 19:40] LABS: Basophils % 0.4 % (0.0-0.8); Eosinophils # 0.2 10*3/uL (0.0-0.87); Eosinophils % 3.8 % (0.00-10.9); Hematocrit 27.9 VOL% (35.7-47.0); Immature Granulocytes % 0.4 %; Immature Granulocytes Absolute 0.02 #; Mean Corpuscular HGB Conc 32.3 GM/DL (32-36); Mean Corpuscular Volume 91.5 FL (87-102); Mean Platelet Volume 12.4 FL (9.6-12.0); Monocytes % 6.7 % (1.7-12.7); Neutrophils % 52.7 % (38.7-73.9); Platelet Count 164 T/CUMM (130-400); Red Blood Count 3.05 MC/CUMM (3.8-5.5); Red Cell Distribution Width 13.2 % (9.3-17.3); White Blood Count 5.6 T/CUMM (4-12)
[2019-01-10 20:23] LABS: Alanine Aminotransferase 20 U/L (13-56); Albumin 3.7 G/DL (3.4-5.0); Alkaline Phosphatase 68 U/L (45-117); Aspartate Amino Transferase 9 U/L (0-37); Bilirubin,Total < 0.39 MG/DL (0.2-1.0); Blood Urea Nitrogen 110 MG/DL (7-18); Calcium 8.4 MG/DL (8.5-10.1); Glucose 212 MG/DL (74-106); Total Protein 6.7 G/DL (6.4-8.3)
[2019-01-10] MEDS ORDERED: SODIUM CHLORIDE 0.9% 1,000 ML IV STA (20:29)
[2019-01-10] MEDS ORDERED: ALBUTEROL/IPRATROPIUM 3 ML NEB RESP TX STA (20:31)
[2019-01-10 20:55] LABS: ABG Base Excess -0.8 MMOL/L (-2.5-2.5); ABG HCO3 23.6 MMOL/L (20-26); ABG Oxygen Saturation 88.9 % (95-100); ABG PCO2 47.5 MM HG (35-48); ABG PH 7.335 (7.35-7.45); ABG PO2 56.6 MM HG (80-95); ABG TCO2 23.4 MMOL/L (23-27); Allen Test Positive; Pt O2 Delivery Device Room Air
[2019-01-10] MEDS ORDERED: DEXTROSE 50% 25 GM/50 ML VIAL IV PRN (21:07)
[2019-01-10] MEDS ORDERED: GLUCAGON 1 MG VIAL IM PRN (21:07)
[2019-01-10] MEDS ORDERED: NICOTINE 21 MG/24 HR PATCH TRANSDERM PRN (21:17)
[2019-01-10] MEDS ORDERED: ONDANSETRON 4 MG/2 ML VIAL IV PRN (21:17)
[2019-01-10] MEDS ORDERED: BISACODYL 5 MG TABLET PO PRN (21:17)
[2019-01-10 21:31] LABS: Apearance,Urine CLEAR (Clear); Bacteria,Urine Occasional /HPF (Few); Bilirubin,Urine Negative (Negative); Blood, Urine Negative (Negative); Glucose,Urine (UA) Negative (Negative); Hyaline Casts,Urine 1 /LPF (0-3); Ketones,Urine Negative (Negative); Mucus,Urine Occasional /LPF (Occasional); Nitrite,Urine Negative (Negative); Protein,Urine 30 MG/DL; RBC,Urine 1 /HPF (0-4); Urine Color Straw (Yellow); Urine Specific Gravity 1.009 (1.001-1.035); Urine Urobilinogen < 2.0 EU/DL (0.2-1.0); WBC,Urine <1 /HPF (0-6)
[2019-01-10 21:51] LABS: Barbiturates Screen,Urine Negative (Negative); Benzodiazepines Screen,Urine Negative (Negative); Cannabinoid Screen,Urine Negative (Negative); Opiate Screen,Urine Negative (Negative); Phencyclidine Screen,Urine Negative (Negative)
[2019-01-10 22:21] LABS: Free T4 (Free Thyroxine) 0.91 NG/DL (0.76-1.46); Troponin I < 0.015 NG/ML (0.00-0.045)
[2019-01-10] MEDS ORDERED: MECLIZINE 25 MG TABLET PO PRN (22:51)
[2019-01-10] MEDS: SODIUM CHLORIDE 0.9% 1,000 ML IV SCH (23:18)
[2019-01-10] MEDS ORDERED: ENOXAPARIN 100 MG/ML SYRINGE SUBCUT ONE (23:30)
[2019-01-11] MEDS: ALBUTEROL/IPRATROPIUM 3 ML NEB RESP TX SCH ×4 (01:44→19:35)
[2019-01-11 06:44] LABS: Albumin 3.3 G/DL (3.4-5.0); Bilirubin,Total 0.4 MG/DL (0.2-1.0); Calcium 8.9 MG/DL (8.5-10.1); Osmolality,Calculated 328.1 MOS/KG (273-304); Total Protein 6.8 G/DL (6.4-8.3)
[2019-01-11] MEDS ORDERED: FUROSEMIDE 40 MG TABLET PO SCH (09:00)
[2019-01-11] MEDS ORDERED: LOSARTAN 50 MG TABLET PO SCH (09:00)
[2019-01-11] MEDS: INSULIN NPH/REGULAR 70/30 100 UNIT/ML SUBCUT SCH (09:40)
[2019-01-11] MEDS: CARVEDILOL 25 MG TABLET PO SCH ×2 (09:41→21:02)
[2019-01-11] MEDS: BACLOFEN 10 MG TABLET PO SCH ×2 (09:41→21:02)
[2019-01-11] MEDS: PREGABALIN 75 MG CAPSULE PO SCH ×2 (09:41→17:07)
[2019-01-11] MEDS: LEVOTHYROXINE 137 MCG TABLET PO SCH (09:41)
[2019-01-11] MEDS: PANTOPRAZOLE 40 MG TABLET PO SCH (09:41)
[2019-01-11] MEDS: CLOPIDOGREL 75 MG TABLET PO SCH (09:41)
[2019-01-11] MEDS: DOCUSATE SODIUM 100 MG CAPSULE PO PRN ×2 (09:42→21:02)
[2019-01-11] MEDS: amLODIPine 5 MG TABLET PO SCH (09:42)
[2019-01-11] MEDS: ASPIRIN CHEW 81 MG TABLET PO SCH (09:42)
[2019-01-11] MEDS: INSULIN REGULAR 100 UNIT/ML SUBCUT SCH ×4 (09:46→23:36)
[2019-01-11] MEDS: SODIUM CHLORIDE 0.9% 1,000 ML IV SCH ×2 (09:47→17:09)
[2019-01-11] MEDS: INSULIN LISPRO 100 UNIT/ML SUBCUT SCH ×3 (09:47→17:15)
[2019-01-11] MEDS: SODIUM CHLORIDE 23.4% CONC INJ 38.5 MEQ in STERILE WATER INJ 1,000 ML IV SCH (18:32)
[2019-01-11] MEDS: ROSUVASTATIN 20 MG TABLET PO SCH (21:06)
[2019-01-11] MEDS: CITALOPRAM 40 MG TABLET PO SCH (21:06)
[2019-01-12] MEDS: ALBUTEROL/IPRATROPIUM 3 ML NEB RESP TX SCH ×4 (00:15→19:36)
[2019-01-12] MEDS: SODIUM CHLORIDE 23.4% CONC INJ 38.5 MEQ in STERILE WATER INJ 1,000 ML IV SCH ×2 (04:30→15:42)
[2019-01-12 08:22] LABS: Basophils % 0.3 % (0.0-0.8); Eosinophils # 0.2 10*3/uL (0.0-0.87); Eosinophils % 2.9 % (0.00-10.9); Hematocrit 28.2 VOL% (35.7-47.0); Hemoglobin 9.1 GM/DL (12.0-16.0); Immature Granulocytes % 0.3 %; Immature Granulocytes Absolute 0.02 #; Lymphocytes # 2.1 10*3/uL (1.4-4.0); Lymphocytes % 33.7 % (21.3-54.2); Mean Corpuscular HGB Conc 32.3 GM/DL (32-36); Mean Corpuscular Volume 91.3 FL (87-102); Mean Platelet Volume 12.1 FL (9.6-12.0); Monocytes % 7.8 % (1.7-12.7); Platelet Count 163 T/CUMM (130-400); Red Blood Count 3.09 MC/CUMM (3.8-5.5); Red Cell Distribution Width 13.2 % (9.3-17.3); White Blood Count 6.3 T/CUMM (4-12)
[2019-01-12 08:42] LABS: Albumin 3.5 G/DL (3.4-5.0); Bilirubin,Total 0.8 MG/DL (0.2-1.0); Osmolality,Calculated 315.7 MOS/KG (273-304); Total Protein 7.1 G/DL (6.4-8.3)
[2019-01-12] MEDS: INSULIN REGULAR 100 UNIT/ML SUBCUT SCH ×4 (10:19→20:57)
[2019-01-12] MEDS: INSULIN LISPRO 100 UNIT/ML SUBCUT SCH ×3 (10:20→17:46)
[2019-01-12] MEDS: INSULIN NPH/REGULAR 70/30 100 UNIT/ML SUBCUT SCH (10:20)
[2019-01-12] MEDS: LEVOTHYROXINE 137 MCG TABLET PO SCH (10:21)
[2019-01-12] MEDS: BACLOFEN 10 MG TABLET PO SCH ×2 (10:21→20:58)
[2019-01-12] MEDS: amLODIPine 5 MG TABLET PO SCH (10:21)
[2019-01-12] MEDS: PANTOPRAZOLE 40 MG TABLET PO SCH (10:21)
[2019-01-12] MEDS: CARVEDILOL 25 MG TABLET PO SCH ×2 (10:21→20:58)
[2019-01-12] MEDS: ASPIRIN CHEW 81 MG TABLET PO SCH (10:21)
[2019-01-12] MEDS: CLOPIDOGREL 75 MG TABLET PO SCH (15:41)
[2019-01-12] MEDS: CITALOPRAM 40 MG TABLET PO SCH (21:04)
[2019-01-12] MEDS: ROSUVASTATIN 20 MG TABLET PO SCH (21:04)
[2019-01-13] MEDS: SODIUM CHLORIDE 23.4% CONC INJ 38.5 MEQ in STERILE WATER INJ 1,000 ML IV SCH ×2 (00:43→09:31)
[2019-01-13] MEDS: ALBUTEROL/IPRATROPIUM 3 ML NEB RESP TX SCH ×3 (01:34→12:00)
[2019-01-13 06:18] LABS: Basophils % 0.5 % (0.0-0.8); Eosinophils # 0.2 10*3/uL (0.0-0.87); Eosinophils % 2.8 % (0.00-10.9); Hemoglobin 8.4 GM/DL (12.0-16.0); Immature Granulocytes % 0.7 %; Immature Granulocytes Absolute 0.06 #; Lymphocytes # 2.3 10*3/uL (1.4-4.0); Lymphocytes % 28.1 % (21.3-54.2); Mean Corpuscular HGB Conc 32.3 GM/DL (32-36); Mean Platelet Volume 12.3 FL (9.6-12.0); Monocytes % 7.1 % (1.7-12.7); Neutrophils % 60.8 % (38.7-73.9); Platelet Count 169 T/CUMM (130-400); Red Blood Count 2.89 MC/CUMM (3.8-5.5); Red Cell Distribution Width 13.1 % (9.3-17.3); White Blood Count 8.2 T/CUMM (4-12)
[2019-01-13] MEDS ORDERED: LEVOTHYROXINE 137 MCG TABLET PO SCH (06:30)
[2019-01-13 06:41] LABS: Calcium 8.8 MG/DL (8.5-10.1); Osmolality,Calculated 307.3 MOS/KG (273-304)
[2019-01-13] MEDS: INSULIN REGULAR 100 UNIT/ML SUBCUT SCH ×2 (09:22→12:31)
[2019-01-13] MEDS: DOCUSATE SODIUM 100 MG CAPSULE PO PRN (09:22)
[2019-01-13] MEDS: CARVEDILOL 25 MG TABLET PO SCH (09:22)
[2019-01-13] MEDS: CLOPIDOGREL 75 MG TABLET PO SCH (09:22)
[2019-01-13] MEDS: PANTOPRAZOLE 40 MG TABLET PO SCH (09:22)
[2019-01-13] MEDS: ASPIRIN CHEW 81 MG TABLET PO SCH (09:22)
[2019-01-13] MEDS: amLODIPine 5 MG TABLET PO SCH (09:22)
[2019-01-13] MEDS: INSULIN LISPRO 100 UNIT/ML SUBCUT SCH ×2 (09:22→12:31)
[2019-01-13] MEDS: BACLOFEN 10 MG TABLET PO SCH (09:22)
[2019-01-13] MEDS: INSULIN NPH/REGULAR 70/30 100 UNIT/ML SUBCUT SCH (09:23)
[2019-01-13 16:15] VITALS: BP 139/66
== END 2019-01-13 16:28 | disposition home or self-care (01) ==
LOC: N.EDINP 19:12 → N.ED 19:12 → SUATTDRO 21:07 → N.5E 22:33
PROVIDERS: ADMIT Family Medicine; ATTEND Family Medicine

== ENCOUNTER 2020-03-18 12:41 | Observation (INO) ==
[2020-03-18 13:07] LABS: Basophils # 0.1 10*3/uL (0.0-0.2); Basophils % 0.8 % (0.0-0.8); Eosinophils # 0.2 10*3/uL (0.0-0.87); Eosinophils % 2.8 % (0.00-10.9); Hematocrit 36.1 VOL% (35.7-47.0); Hemoglobin 12.4 GM/DL (12.0-16.0); Immature Granulocytes % 0.5 %; Immature Granulocytes Absolute 0.03 #; Lymphocytes # 2.1 10*3/uL (1.4-4.0); Lymphocytes % 34.3 % (21.3-54.2); Mean Corpuscular HGB Conc 34.3 GM/DL (32-36); Mean Corpuscular Volume 90.3 FL (87-102); Mean Platelet Volume 10.5 FL (9.6-12.0); Monocytes % 5.6 % (1.7-12.7); Platelet Count 279 T/CUMM (130-400); Red Cell Distribution Width 12.7 % (9.3-17.3); White Blood Count 6.1 T/CUMM (4-12)
[2020-03-18] MEDS ORDERED: ENOXAPARIN 100 MG/ML SYRINGE SUBCUT STA (13:28)
[2020-03-18] MEDS ORDERED: ASPIRIN CHEW 81 MG TABLET PO STA (13:28)
[2020-03-18] MEDS ORDERED: NITROGLYCERIN 2% OINT 1 INCH/GM PACK TOP STA (13:28)
[2020-03-18] MEDS ORDERED: METOPROLOL TARTRATE 5 MG/5 ML VIAL IV STA (13:40)
[2020-03-18 14:05] LABS: Calcium 8.3 MG/DL (8.5-10.1)
[2020-03-18 14:06] LABS: Albumin 2.7 G/DL (3.4-5.0); Alkaline Phosphatase 88 U/L (45-117); Aspartate Amino Transferase 17 U/L (0-37); Bilirubin,Total < 0.39 MG/DL (0.2-1.0); Blood Urea Nitrogen 34 MG/DL (7-18); Estimated Glom Filtration Rate 26 ML/MIN; Glucose 484 MG/DL (74-106); Osmolality,Calculated 307.4 MOS/KG (273-304); Total Protein 6.6 G/DL (6.4-8.3)
[2020-03-18 14:17] LABS: Alanine Aminotransferase 21 U/L (13-56)
[2020-03-18] MEDS ORDERED: DEXTROSE 50% 25 GM/50 ML VIAL IV PRN (14:54)
[2020-03-18] MEDS ORDERED: ACETAMINOPHEN 325 MG TABLET PO PRN (14:54)
[2020-03-18] MEDS ORDERED: GLUCAGON 1 MG VIAL IM PRN (14:54)
[2020-03-18] MEDS ORDERED: ONDANSETRON 4 MG/2 ML VIAL IV PRN (14:54)
[2020-03-18 15:41] LABS: Risk Ratio 6.48
[2020-03-18] MEDS ORDERED: INFLUENZA VIRUS VACCINE 0.5 ML SYRINGE IM ONE (17:26)
[2020-03-18] MEDS: INSULIN LISPRO 100 UNIT/ML SUBCUT SCH ×2 (17:43→21:49)
[2020-03-18] MEDS: carvediloL 25 MG TABLET PO SCH (17:44)
[2020-03-18] MEDS: INSULIN GLARGINE 100 UNIT/ML SUBCUT SCH (21:48)
[2020-03-18] MEDS: DOCUSATE SODIUM 100 MG CAPSULE PO SCH (21:49)
[2020-03-18] MEDS: ROSUVASTATIN 20 MG TABLET PO SCH (21:50)
[2020-03-18] MEDS: CITALOPRAM 40 MG TABLET PO SCH (21:50)
[2020-03-18] MEDS: ENOXAPARIN 30 MG/0.3 ML SYRINGE SUBCUT SCH (21:51)
[2020-03-19 06:12] LABS: Basophils % 0.7 % (0.0-0.8); Eosinophils # 0.2 10*3/uL (0.0-0.87); Eosinophils % 3.9 % (0.00-10.9); Hematocrit 33.6 VOL% (35.7-47.0); Hemoglobin 11.1 GM/DL (12.0-16.0); Immature Granulocytes % 0.5 %; Immature Granulocytes Absolute 0.03 #; Lymphocytes # 2.4 10*3/uL (1.4-4.0); Lymphocytes % 40.8 % (21.3-54.2); Mean Corpuscular Volume 91.6 FL (87-102); Mean Platelet Volume 10.8 FL (9.6-12.0); Neutrophils % 47.1 % (38.7-73.9); Platelet Count 235 T/CUMM (130-400); Red Blood Count 3.67 MC/CUMM (3.8-5.5); Red Cell Distribution Width 12.4 % (9.3-17.3); White Blood Count 5.9 T/CUMM (4-12)
[2020-03-19] MEDS: LEVOTHYROXINE 150 MCG TABLET PO SCH (06:15)
[2020-03-19 06:28] LABS: Calcium 8.7 MG/DL (8.5-10.1); Osmolality,Calculated 290.5 MOS/KG (273-304)
[2020-03-19] MEDS: CLOPIDOGREL 75 MG TABLET PO SCH (08:48)
[2020-03-19] MEDS: carvediloL 25 MG TABLET PO SCH ×2 (08:48→16:53)
[2020-03-19] MEDS: INSULIN LISPRO 100 UNIT/ML SUBCUT SCH ×4 (08:48→16:58)
[2020-03-19] MEDS: DOCUSATE SODIUM 100 MG CAPSULE PO SCH ×2 (08:49→21:58)
[2020-03-19] MEDS: PANTOPRAZOLE 40 MG TABLET PO SCH (08:49)
[2020-03-19] MEDS: MULTIVITAMIN (CENTRUM) TABLET PO SCH (08:49)
[2020-03-19] MEDS: ASPIRIN CHEW 81 MG TABLET PO SCH (08:49)
[2020-03-19] MEDS ORDERED: amLODIPine 5 MG TABLET PO SCH (09:00)
[2020-03-19] MEDS ORDERED: amLODIPine 10 MG TABLET PO SCH (10:35)
[2020-03-19] MEDS ORDERED: INSULIN LISPRO 100 UNIT/ML SUBCUT SCH (12:00)
[2020-03-19] MEDS: CITALOPRAM 40 MG TABLET PO SCH (21:58)
[2020-03-19] MEDS: ROSUVASTATIN 20 MG TABLET PO SCH (21:59)
[2020-03-20] MEDS: INSULIN LISPRO 100 UNIT/ML SUBCUT SCH ×5 (01:41→11:17)
[2020-03-20] MEDS: ENOXAPARIN 30 MG/0.3 ML SYRINGE SUBCUT SCH (01:43)
[2020-03-20] MEDS: INSULIN GLARGINE 100 UNIT/ML SUBCUT SCH (01:43)
[2020-03-20 05:46] LABS: Basophils # 0.1 10*3/uL (0.0-0.2); Basophils % 0.8 % (0.0-0.8); Eosinophils # 0.3 10*3/uL (0.0-0.87); Eosinophils % 3.9 % (0.00-10.9); Hematocrit 32.3 VOL% (35.7-47.0); Hemoglobin 10.9 GM/DL (12.0-16.0); Immature Granulocytes % 0.3 %; Immature Granulocytes Absolute 0.02 #; Lymphocytes # 2.7 10*3/uL (1.4-4.0); Lymphocytes % 36.6 % (21.3-54.2); Mean Corpuscular HGB Conc 33.7 GM/DL (32-36); Monocytes % 6.7 % (1.7-12.7); Neutrophils % 51.7 % (38.7-73.9); Platelet Count 244 T/CUMM (130-400); Red Blood Count 3.59 MC/CUMM (3.8-5.5); Red Cell Distribution Width 12.3 % (9.3-17.3); White Blood Count 7.3 T/CUMM (4-12)
[2020-03-20 05:57] LABS: Calcium 8.1 MG/DL (8.5-10.1); Osmolality,Calculated 286.5 MOS/KG (273-304)
[2020-03-20] MEDS: LEVOTHYROXINE 150 MCG TABLET PO SCH (06:20)
[2020-03-20] MEDS ORDERED: POLYETHYLENE GLYCOL POWDER 17 GM PACK PO SCH (09:00)
[2020-03-20] MEDS ORDERED: ALBUTEROL/IPRATROPIUM 3 ML NEB RESP TX SCH (11:00)
[2020-03-20] MEDS: carvediloL 25 MG TABLET PO SCH (11:11)
[2020-03-20] MEDS: DOCUSATE SODIUM 100 MG CAPSULE PO SCH (11:11)
[2020-03-20] MEDS: ASPIRIN CHEW 81 MG TABLET PO SCH (11:11)
[2020-03-20] MEDS: MULTIVITAMIN (CENTRUM) TABLET PO SCH (11:11)
[2020-03-20] MEDS: CLOPIDOGREL 75 MG TABLET PO SCH (11:11)
[2020-03-20] MEDS: PANTOPRAZOLE 40 MG TABLET PO SCH (11:12)
[2020-03-20 12:48] VITALS: BP 140/72
== END 2020-03-20 13:38 | disposition home or self-care (01) ==
LOC: N.EDINP 12:41 → N.ED 12:41 → SUATTDRO 14:54 → N.TELES 16:42
PROVIDERS: ADMIT Internal Medicine; ATTEND Internal Medicine

== ENCOUNTER 2021-01-25 14:12 | Inpatient (IN) ==
[2021-01-25] MEDS ORDERED: cefTRIAXone 1,000 MG in SODIUM CHLORIDE 0.9% 100 ML IV STA (14:45)
[2021-01-25] MEDS ORDERED: AZITHROMYCIN 250 MG TABLET PO STA (14:45)
[2021-01-25 15:36] LABS: Basophils % 0.2 % (0.0-0.8); Eosinophils # 0.1 10*3/uL (0.0-0.87); Eosinophils % 1.6 % (0.00-10.9); Hematocrit 27.6 VOL% (35.7-47.0); Hemoglobin 8.6 GM/DL (12.0-16.0); Immature Granulocytes % 3.3 %; Lymphocytes # 1.3 10*3/uL (1.4-4.0); Lymphocytes % 14.8 % (21.3-54.2); Mean Corpuscular HGB Conc 31.2 GM/DL (32-36); Mean Corpuscular Volume 89.9 FL (87-102); Neutrophils % 74.1 % (38.7-73.9); Platelet Count 429 T/CUMM (130-400); Red Blood Count 3.07 MC/CUMM (3.8-5.5); Red Cell Distribution Width 13.1 % (9.3-17.3)
[2021-01-25 15:54] LABS: Albumin 2.6 G/DL (3.4-5.0); Bilirubin,Total 0.4 MG/DL (0.20-1.00); Osmolality,Calculated 308.7 MOS/KG (273-304); Potassium 5.8 MMOL/L (3.5-5.1)
[2021-01-25] MEDS ORDERED: DOCUSATE SODIUM 100 MG CAPSULE PO PRN (16:04)
[2021-01-25] MEDS ORDERED: ONDANSETRON 4 MG/2 ML VIAL IV PRN (16:04)
[2021-01-25] MEDS ORDERED: hydrALAZINE 20 MG/1 ML VIAL IV PRN ×2 (16:04→16:35)
[2021-01-25] MEDS ORDERED: ALBUTEROL/IPRATROPIUM 3 ML NEB RESP TX PRN (16:04)
[2021-01-25] MEDS ORDERED: GLUCAGON 1 MG VIAL IM PRN (16:04)
[2021-01-25] MEDS ORDERED: DEXTROSE 50% 25 GM/50 ML VIAL IV PRN (16:04)
[2021-01-25] MEDS ORDERED: MELATONIN 3 MG TABLET PO PRN (16:33)
[2021-01-25] MEDS ORDERED: amLODIPine 10 MG TABLET PO ONE (16:36)
[2021-01-25 17:18] LABS: ABG Base Excess -5.3 MMOL/L (-2.5-2.5); ABG Oxygen Saturation 93.5 % (95-100); ABG PCO2 31.3 MM HG (35-48); ABG PH 7.388 (7.35-7.45); ABG PO2 70.9 MM HG (80-95); ABG TCO2 17.1 MMOL/L (23-27); Allen Test Positive
[2021-01-25] MEDS: SODIUM CHLORIDE 0.9% 1,000 ML IV SCH (18:19)
[2021-01-25] MEDS: cefTRIAXone 1,000 MG in SODIUM CHLORIDE 0.9% 100 ML IV SCH (18:19)
[2021-01-25] MEDS: ZINC GLUCONATE 50 MG TABLET PO SCH (18:20)
[2021-01-25] MEDS: INSULIN LISPRO 100 UNIT/ML SUBCUT SCH ×2 (18:20→21:20)
[2021-01-25] MEDS: ISOSORBIDE MONONITRATE 30 MG TABLET PO SCH (18:20)
[2021-01-25] MEDS: CHOLECALCIFEROL 1,000 UNIT TABLET PO SCH (18:20)
[2021-01-25] MEDS: ASPIRIN EC 81 MG TABLET PO SCH (18:20)
[2021-01-25] MEDS: FUROSEMIDE 40 MG TABLET PO SCH (18:21)
[2021-01-25] MEDS: DEXAMETHASONE 4 MG/1 ML VIAL IV SCH (18:21)
[2021-01-25] MEDS: CETIRIZINE 10 MG TABLET PO SCH (18:21)
[2021-01-25] MEDS: ENOXAPARIN 30 MG/0.3 ML SYRINGE SUBCUT SCH (18:21)
[2021-01-25] MEDS: CLOPIDOGREL 75 MG TABLET PO SCH (18:25)
[2021-01-25] MEDS: SODIUM ZIRCONIUM CYCLOSILICATE 10 GM PACK PO SCH (21:03)
[2021-01-25] MEDS: carvediloL 25 MG TABLET PO SCH (21:03)
[2021-01-25] MEDS: ASCORBIC ACID 500 MG TABLET PO SCH (21:03)
[2021-01-25] MEDS: FAMOTIDINE 20 MG TABLET PO SCH (21:03)
[2021-01-26 05:45] LABS: Basophils % 0.3 % (0.0-0.8); Hematocrit 25.9 VOL% (35.7-47.0); Immature Granulocytes % 4.9 %; Immature Granulocytes Absolute 0.35 #; Lymphocytes # 0.8 10*3/uL (1.4-4.0); Lymphocytes % 11.1 % (21.3-54.2); Mean Corpuscular HGB Conc 30.9 GM/DL (32-36); Mean Corpuscular Volume 91.5 FL (87-102); Mean Platelet Volume 10.2 FL (9.6-12.0); Monocytes % 2.3 % (1.7-12.7); Neutrophils % 81.4 % (38.7-73.9); Platelet Count 425 T/CUMM (130-400); Red Blood Count 2.83 MC/CUMM (3.8-5.5); Red Cell Distribution Width 12.9 % (9.3-17.3); White Blood Count 7.1 T/CUMM (4-12)
[2021-01-26] MEDS: ACETAMINOPHEN 325 MG TABLET PO PRN ×2 (06:14→16:46)
[2021-01-26 06:20] LABS: Alanine Aminotransferase 115 U/L (13-56); Albumin 2.2 G/DL (3.4-5.0); Alkaline Phosphatase 170 U/L (45-117); Aspartate Amino Transferase 58 U/L (0-37); Bilirubin,Total < 0.39 MG/DL (0.20-1.00); Blood Urea Nitrogen 71 MG/DL (7-18); Calcium 9.1 MG/DL (8.5-10.1); Carbon Dioxide 19 MMOL/L (21-32); Estimated Glom Filtration Rate 18 ML/MIN; Glucose 227 MG/DL (74-106); Osmolality,Calculated 306.4 MOS/KG (273-304); Potassium 5.7 MMOL/L (3.5-5.1); Sodium 140 MMOL/L (136-145); Total Protein 7.6 G/DL (6.4-8.2)
[2021-01-26 06:23] LABS: Ferritin 770.9 ng/mL (8-252)
[2021-01-26 07:09] LABS: Hypochromasia 1+; Lymphocytes 11 % (20-55); Microcytosis 1+; Platelet Estimate Adequate; Segmented Neutrophils 87 % (50-85); Total Cells Counted 100
[2021-01-26] MEDS: DEXAMETHASONE 4 MG/1 ML VIAL IV SCH (09:31)
[2021-01-26] MEDS: CHOLECALCIFEROL 1,000 UNIT TABLET PO SCH (09:31)
[2021-01-26] MEDS: CLOPIDOGREL 75 MG TABLET PO SCH (09:31)
[2021-01-26] MEDS: INSULIN LISPRO 100 UNIT/ML SUBCUT SCH ×5 (09:31→21:06)
[2021-01-26] MEDS: ASCORBIC ACID 500 MG TABLET PO SCH ×2 (09:32→21:11)
[2021-01-26] MEDS: ASPIRIN EC 81 MG TABLET PO SCH (09:32)
[2021-01-26] MEDS: carvediloL 25 MG TABLET PO SCH ×2 (09:32→21:10)
[2021-01-26] MEDS: ISOSORBIDE MONONITRATE 30 MG TABLET PO SCH (09:32)
[2021-01-26] MEDS: AZITHROMYCIN 250 MG TABLET PO SCH (09:32)
[2021-01-26] MEDS: ZINC GLUCONATE 50 MG TABLET PO SCH (09:32)
[2021-01-26] MEDS: FAMOTIDINE 20 MG TABLET PO SCH ×2 (09:32→21:10)
[2021-01-26] MEDS: CETIRIZINE 10 MG TABLET PO SCH (09:32)
[2021-01-26] MEDS: FUROSEMIDE 40 MG TABLET PO SCH (09:32)
[2021-01-26] MEDS: SODIUM CHLORIDE 0.9% 1,000 ML IV SCH (09:33)
[2021-01-26] MEDS: SODIUM ZIRCONIUM CYCLOSILICATE 10 GM PACK PO SCH ×2 (10:30→16:56)
[2021-01-26] MEDS: INSULIN GLARGINE 100 UNIT/ML SUBCUT SCH (14:23)
[2021-01-26] MEDS: cefTRIAXone 1,000 MG in SODIUM CHLORIDE 0.9% 100 ML IV SCH (18:00)
[2021-01-26] MEDS: ENOXAPARIN 30 MG/0.3 ML SYRINGE SUBCUT SCH (21:09)
[2021-01-27] MEDS: SODIUM ZIRCONIUM CYCLOSILICATE 10 GM PACK PO SCH ×3 (01:36→15:28)
[2021-01-27] MEDS: SODIUM CHLORIDE 0.9% 1,000 ML IV SCH ×2 (01:37→15:27)
[2021-01-27] MEDS: ACETAMINOPHEN 325 MG TABLET PO PRN ×2 (06:05→20:53)
[2021-01-27 07:06] LABS: Calcium 8.5 MG/DL (8.5-10.1); Osmolality,Calculated 307.8 MOS/KG (273-304)
[2021-01-27 07:11] LABS: Ferritin 489.6 ng/mL (8-252)
[2021-01-27 07:22] LABS: Potassium 6.3 MMOL/L (3.5-5.1)
[2021-01-27] MEDS ORDERED: INSULIN REGULAR 10 UNIT, CALCIUM GLUCONATE 1,000 MG in DEXTROSE 10% 250 ML IV ONE (08:00)
[2021-01-27] MEDS: carvediloL 25 MG TABLET PO SCH ×2 (08:35→20:52)
[2021-01-27] MEDS: CHOLECALCIFEROL 1,000 UNIT TABLET PO SCH (08:35)
[2021-01-27] MEDS: ASCORBIC ACID 500 MG TABLET PO SCH ×2 (08:36→20:53)
[2021-01-27] MEDS: FAMOTIDINE 20 MG TABLET PO SCH ×2 (08:36→20:52)
[2021-01-27] MEDS: ISOSORBIDE MONONITRATE 30 MG TABLET PO SCH (08:36)
[2021-01-27] MEDS: CETIRIZINE 10 MG TABLET PO SCH (08:37)
[2021-01-27] MEDS: AZITHROMYCIN 250 MG TABLET PO SCH (08:37)
[2021-01-27] MEDS: FUROSEMIDE 40 MG TABLET PO SCH ×2 (08:37→15:28)
[2021-01-27] MEDS: DEXAMETHASONE 4 MG/1 ML VIAL IV SCH (08:38)
[2021-01-27] MEDS: CLOPIDOGREL 75 MG TABLET PO SCH (08:39)
[2021-01-27] MEDS: ASPIRIN EC 81 MG TABLET PO SCH (08:39)
[2021-01-27] MEDS: ZINC GLUCONATE 50 MG TABLET PO SCH (08:39)
[2021-01-27] MEDS: INSULIN LISPRO 100 UNIT/ML SUBCUT SCH ×6 (09:15→21:01)
[2021-01-27] MEDS: INSULIN GLARGINE 100 UNIT/ML SUBCUT SCH (09:17)
[2021-01-27] MEDS ORDERED: FUROSEMIDE 40 MG/4 ML VIAL IV ONE (09:53)
[2021-01-27] MEDS: cefTRIAXone 1,000 MG in SODIUM CHLORIDE 0.9% 100 ML IV SCH (10:18)
[2021-01-27] MEDS ORDERED: METHOCARBAMOL 500 MG TABLET PO PRN (10:52)
[2021-01-27] MEDS ORDERED: cloNIDine 0.1 MG TABLET PO SCH (11:00)
[2021-01-27] MEDS: ENOXAPARIN 30 MG/0.3 ML SYRINGE SUBCUT SCH (20:51)
[2021-01-28 05:39] LABS: Calcium 8.8 MG/DL (8.5-10.1); Osmolality,Calculated 300.8 MOS/KG (273-304); Potassium 4.7 MMOL/L (3.5-5.1)
[2021-01-28] MEDS: LEVOTHYROXINE 100 MCG TABLET PO SCH (05:41)
[2021-01-28] MEDS: ACETAMINOPHEN 325 MG TABLET PO PRN ×2 (05:46→21:05)
[2021-01-28] MEDS: cefTRIAXone 1,000 MG in SODIUM CHLORIDE 0.9% 100 ML IV SCH (08:25)
[2021-01-28] MEDS: FAMOTIDINE 20 MG TABLET PO SCH ×2 (08:26→20:40)
[2021-01-28] MEDS: ASPIRIN EC 81 MG TABLET PO SCH (08:26)
[2021-01-28] MEDS: ISOSORBIDE MONONITRATE 30 MG TABLET PO SCH (08:26)
[2021-01-28] MEDS: DEXAMETHASONE 4 MG/1 ML VIAL IV SCH (08:26)
[2021-01-28] MEDS: CHOLECALCIFEROL 1,000 UNIT TABLET PO SCH (08:26)
[2021-01-28] MEDS: ZINC GLUCONATE 50 MG TABLET PO SCH (08:26)
[2021-01-28] MEDS: FUROSEMIDE 40 MG TABLET PO SCH ×2 (08:27→15:08)
[2021-01-28] MEDS: CETIRIZINE 10 MG TABLET PO SCH (08:27)
[2021-01-28] MEDS: AZITHROMYCIN 250 MG TABLET PO SCH (08:27)
[2021-01-28] MEDS: CLOPIDOGREL 75 MG TABLET PO SCH (08:27)
[2021-01-28] MEDS: ASCORBIC ACID 500 MG TABLET PO SCH ×2 (08:27→20:40)
[2021-01-28] MEDS: carvediloL 25 MG TABLET PO SCH ×2 (08:27→20:40)
[2021-01-28] MEDS: DOXAZOSIN 4 MG TABLET PO SCH (08:28)
[2021-01-28] MEDS: INSULIN LISPRO 100 UNIT/ML SUBCUT SCH ×7 (08:28→21:00)
[2021-01-28] MEDS: INSULIN GLARGINE 100 UNIT/ML SUBCUT SCH (08:29)
[2021-01-28] MEDS: SODIUM CHLORIDE 0.9% 1,000 ML IV SCH (10:50)
[2021-01-28] MEDS: ENOXAPARIN 30 MG/0.3 ML SYRINGE SUBCUT SCH (20:39)
[2021-01-29 05:04] LABS: Basophils # 0.1 10*3/uL (0.0-0.2); Basophils % 0.5 % (0.0-0.8); Hematocrit 24.5 VOL% (35.7-47.0); Hemoglobin 7.8 GM/DL (12.0-16.0); Immature Granulocytes % 13.3 %; Immature Granulocytes Absolute 1.65 #; Lymphocytes # 1.7 10*3/uL (1.4-4.0); Lymphocytes % 13.6 % (21.3-54.2); Mean Corpuscular HGB Conc 31.8 GM/DL (32-36); Mean Corpuscular Volume 88.1 FL (87-102); Mean Platelet Volume 9.9 FL (9.6-12.0); Monocytes % 6.2 % (1.7-12.7); NRBC # 0.02 10*3/uL; Neutrophils % 66.4 % (38.7-73.9); Platelet Count 463 T/CUMM (130-400); Red Blood Count 2.78 MC/CUMM (3.8-5.5); Red Cell Distribution Width 12.8 % (9.3-17.3); White Blood Count 12.4 T/CUMM (4-12)
[2021-01-29 05:31] LABS: Calcium 8.2 MG/DL (8.5-10.1); Osmolality,Calculated 303.3 MOS/KG (273-304); Potassium 4.7 MMOL/L (3.5-5.1)
[2021-01-29] MEDS: LEVOTHYROXINE 100 MCG TABLET PO SCH (05:50)
[2021-01-29 05:51] LABS: Band Neutrophils 2 % (0-10); Lymphocytes 15 % (20-55); Platelet Estimate Increased; Segmented Neutrophils 77 % (50-85); Total Cells Counted 100
[2021-01-29 05:52] LABS: Hypochromasia Slight
[2021-01-29] MEDS: DEXAMETHASONE 4 MG/1 ML VIAL IV SCH (08:12)
[2021-01-29] MEDS: cefTRIAXone 1,000 MG in SODIUM CHLORIDE 0.9% 100 ML IV SCH (08:12)
[2021-01-29] MEDS: CHOLECALCIFEROL 1,000 UNIT TABLET PO SCH (08:13)
[2021-01-29] MEDS: ZINC GLUCONATE 50 MG TABLET PO SCH (08:13)
[2021-01-29] MEDS: DOXAZOSIN 4 MG TABLET PO SCH (08:13)
[2021-01-29] MEDS: ASCORBIC ACID 500 MG TABLET PO SCH ×2 (08:14→20:41)
[2021-01-29] MEDS: carvediloL 25 MG TABLET PO SCH ×2 (08:14→20:41)
[2021-01-29] MEDS: ASPIRIN EC 81 MG TABLET PO SCH (08:14)
[2021-01-29] MEDS: FAMOTIDINE 20 MG TABLET PO SCH ×2 (08:14→20:41)
[2021-01-29] MEDS: CETIRIZINE 10 MG TABLET PO SCH (08:14)
[2021-01-29] MEDS: ISOSORBIDE MONONITRATE 30 MG TABLET PO SCH (08:14)
[2021-01-29] MEDS: CLOPIDOGREL 75 MG TABLET PO SCH (08:14)
[2021-01-29] MEDS: FUROSEMIDE 40 MG TABLET PO SCH ×2 (08:14→16:42)
[2021-01-29] MEDS: AZITHROMYCIN 250 MG TABLET PO SCH (08:23)
[2021-01-29] MEDS: INSULIN LISPRO 100 UNIT/ML SUBCUT SCH ×7 (08:57→20:42)
[2021-01-29] MEDS: INSULIN GLARGINE 100 UNIT/ML SUBCUT SCH (08:58)
[2021-01-29] MEDS: SODIUM CHLORIDE 0.9% 1,000 ML IV SCH ×2 (12:05→20:55)
[2021-01-29] MEDS ORDERED: MAGNESIUM OXIDE 400 MG TABLET PO ONE (14:07)
[2021-01-29] MEDS: ENOXAPARIN 30 MG/0.3 ML SYRINGE SUBCUT SCH (20:42)
[2021-01-29] MEDS: ACETAMINOPHEN 325 MG TABLET PO PRN (20:50)
[2021-01-30 04:26] LABS: Basophils % 0.1 % (0.0-0.8); Hematocrit 26.5 VOL% (35.7-47.0); Hemoglobin 8.3 GM/DL (12.0-16.0); Immature Granulocytes % 13.5 %; Immature Granulocytes Absolute 2.05 #; Lymphocytes # 2.5 10*3/uL (1.4-4.0); Lymphocytes % 16.2 % (21.3-54.2); Mean Corpuscular HGB Conc 31.3 GM/DL (32-36); Mean Platelet Volume 9.5 FL (9.6-12.0); Monocytes % 6.3 % (1.7-12.7); Neutrophils % 63.9 % (38.7-73.9); Platelet Count 469 T/CUMM (130-400); Red Blood Count 3.01 MC/CUMM (3.8-5.5); Red Cell Distribution Width 13.1 % (9.3-17.3); White Blood Count 15.1 T/CUMM (4-12)
[2021-01-30 04:51] LABS: Calcium 8.3 MG/DL (8.5-10.1); Osmolality,Calculated 304.4 MOS/KG (273-304); Potassium 4.2 MMOL/L (3.5-5.1)
[2021-01-30 05:00] LABS: Band Neutrophils 1 % (0-10); Hypochromasia 1+; Lymphocytes 15 % (20-55); Microcytosis 1+; Myelocytes 1 %; Ovalocytes Few; Platelet Estimate Increased; Segmented Neutrophils 79 % (50-85); Total Cells Counted 100
[2021-01-30] MEDS: LEVOTHYROXINE 100 MCG TABLET PO SCH (06:04)
[2021-01-30] MEDS: INSULIN LISPRO 100 UNIT/ML SUBCUT SCH ×8 (07:05→20:58)
[2021-01-30] MEDS: cefTRIAXone 1,000 MG in SODIUM CHLORIDE 0.9% 100 ML IV SCH (08:44)
[2021-01-30] MEDS: INSULIN GLARGINE 100 UNIT/ML SUBCUT SCH (08:45)
[2021-01-30] MEDS: DOXAZOSIN 4 MG TABLET PO SCH (08:47)
[2021-01-30] MEDS: DEXAMETHASONE 4 MG/1 ML VIAL IV SCH (08:47)
[2021-01-30] MEDS: ASCORBIC ACID 500 MG TABLET PO SCH ×2 (08:48→20:47)
[2021-01-30] MEDS: CHOLECALCIFEROL 1,000 UNIT TABLET PO SCH (08:48)
[2021-01-30] MEDS: ASPIRIN EC 81 MG TABLET PO SCH (08:48)
[2021-01-30] MEDS: MAGNESIUM OXIDE 400 MG TABLET PO SCH (08:48)
[2021-01-30] MEDS: ZINC GLUCONATE 50 MG TABLET PO SCH (08:48)
[2021-01-30] MEDS: FAMOTIDINE 20 MG TABLET PO SCH ×2 (08:48→20:47)
[2021-01-30] MEDS: ACETAMINOPHEN 325 MG TABLET PO PRN ×2 (08:49→22:28)
[2021-01-30] MEDS: FUROSEMIDE 40 MG TABLET PO SCH ×2 (08:50→16:09)
[2021-01-30] MEDS: CLOPIDOGREL 75 MG TABLET PO SCH (08:50)
[2021-01-30] MEDS: CETIRIZINE 10 MG TABLET PO SCH (08:50)
[2021-01-30] MEDS: carvediloL 25 MG TABLET PO SCH ×2 (08:50→20:47)
[2021-01-30] MEDS: ISOSORBIDE MONONITRATE 30 MG TABLET PO SCH (08:50)
[2021-01-30] MEDS: ENOXAPARIN 30 MG/0.3 ML SYRINGE SUBCUT SCH (20:48)
[2021-01-31] MEDS: LEVOTHYROXINE 100 MCG TABLET PO SCH (05:36)
[2021-01-31 05:40] LABS: Basophils % 0.1 % (0.0-0.8); Immature Granulocytes % 13.3 %; Immature Granulocytes Absolute 2.05 #; Lymphocytes # 2.5 10*3/uL (1.4-4.0); Lymphocytes % 16.3 % (21.3-54.2); Mean Corpuscular Volume 87.1 FL (87-102); Mean Platelet Volume 9.9 FL (9.6-12.0); Monocytes % 5.9 % (1.7-12.7); Neutrophils % 64.4 % (38.7-73.9); Platelet Count 421 T/CUMM (130-400); Red Blood Count 2.87 MC/CUMM (3.8-5.5); White Blood Count 15.4 T/CUMM (4-12)
[2021-01-31 06:18] LABS: Band Neutrophils 2 % (0-10); Hypochromasia 1+; Lymphocytes 13 % (20-55); Metamyelocytes 5 %; Microcytosis 1+; Myelocytes 1 %; Ovalocytes Few; Promyelocytes 1 %; Segmented Neutrophils 73 % (50-85); Total Cells Counted 100
[2021-01-31 06:19] LABS: Platelet Estimate Increased
[2021-01-31 06:23] LABS: Osmolality,Calculated 304.5 MOS/KG (273-304); Potassium 3.8 MMOL/L (3.5-5.1)
[2021-01-31] MEDS: INSULIN LISPRO 100 UNIT/ML SUBCUT SCH ×7 (07:58→20:18)
[2021-01-31] MEDS: ASPIRIN EC 81 MG TABLET PO SCH (09:26)
[2021-01-31] MEDS: cefTRIAXone 1,000 MG in SODIUM CHLORIDE 0.9% 100 ML IV SCH (09:26)
[2021-01-31] MEDS: FAMOTIDINE 20 MG TABLET PO SCH ×2 (09:26→20:18)
[2021-01-31] MEDS: CLOPIDOGREL 75 MG TABLET PO SCH (09:27)
[2021-01-31] MEDS: DOXAZOSIN 4 MG TABLET PO SCH (09:27)
[2021-01-31] MEDS: ZINC GLUCONATE 50 MG TABLET PO SCH (09:27)
[2021-01-31] MEDS: ASCORBIC ACID 500 MG TABLET PO SCH ×2 (09:27→20:18)
[2021-01-31] MEDS: MAGNESIUM OXIDE 400 MG TABLET PO SCH (09:27)
[2021-01-31] MEDS: CHOLECALCIFEROL 1,000 UNIT TABLET PO SCH (09:27)
[2021-01-31] MEDS: DEXAMETHASONE 4 MG/1 ML VIAL IV SCH (09:28)
[2021-01-31] MEDS: carvediloL 25 MG TABLET PO SCH ×2 (09:28→20:18)
[2021-01-31] MEDS: ISOSORBIDE MONONITRATE 30 MG TABLET PO SCH (09:28)
[2021-01-31] MEDS: FUROSEMIDE 40 MG TABLET PO SCH ×2 (09:28→16:05)
[2021-01-31] MEDS: CETIRIZINE 10 MG TABLET PO SCH (09:28)
[2021-01-31] MEDS: INSULIN GLARGINE 100 UNIT/ML SUBCUT SCH (09:56)
[2021-01-31] MEDS: ENOXAPARIN 30 MG/0.3 ML SYRINGE SUBCUT SCH (20:18)
[2021-02-01] MEDS: ACETAMINOPHEN 325 MG TABLET PO PRN (02:10)
[2021-02-01 05:21] LABS: Basophils % 0.1 % (0.0-0.8); Hematocrit 24.5 VOL% (35.7-47.0); Hemoglobin 7.8 GM/DL (12.0-16.0); Immature Granulocytes % 12.9 %; Immature Granulocytes Absolute 2.14 #; Lymphocytes # 2.9 10*3/uL (1.4-4.0); Lymphocytes % 17.3 % (21.3-54.2); Mean Corpuscular HGB Conc 31.8 GM/DL (32-36); Mean Corpuscular Volume 86.6 FL (87-102); Mean Platelet Volume 9.8 FL (9.6-12.0); Monocytes % 6.3 % (1.7-12.7); Neutrophils % 63.4 % (38.7-73.9); Platelet Count 409 T/CUMM (130-400); Red Blood Count 2.83 MC/CUMM (3.8-5.5); Red Cell Distribution Width 13.2 % (9.3-17.3); White Blood Count 16.6 T/CUMM (4-12)
[2021-02-01 05:44] LABS: Band Neutrophils 1 % (0-10); Hypochromasia 1+; Lymphocytes 19 % (20-55); Platelet Estimate Adequate; Segmented Neutrophils 74 % (50-85); Total Cells Counted 100
[2021-02-01 05:45] LABS: Microcytosis 1+
[2021-02-01] MEDS: LEVOTHYROXINE 100 MCG TABLET PO SCH (05:45)
[2021-02-01 06:07] LABS: Osmolality,Calculated 301.8 MOS/KG (273-304); Potassium 4.1 MMOL/L (3.5-5.1)
[2021-02-01] MEDS: INSULIN LISPRO 100 UNIT/ML SUBCUT SCH ×4 (08:06→12:06)
[2021-02-01] MEDS ORDERED: DEXAMETHASONE 4 MG TABLET PO SCH (09:00)
[2021-02-01] MEDS: INSULIN GLARGINE 100 UNIT/ML SUBCUT SCH (10:15)
[2021-02-01] MEDS: cefTRIAXone 1,000 MG in SODIUM CHLORIDE 0.9% 100 ML IV SCH (10:16)
[2021-02-01] MEDS: ASCORBIC ACID 500 MG TABLET PO SCH (10:17)
[2021-02-01] MEDS: CHOLECALCIFEROL 1,000 UNIT TABLET PO SCH (10:17)
[2021-02-01] MEDS: ASPIRIN EC 81 MG TABLET PO SCH (10:17)
[2021-02-01] MEDS: DOXAZOSIN 4 MG TABLET PO SCH (10:17)
[2021-02-01] MEDS: FUROSEMIDE 40 MG TABLET PO SCH (10:18)
[2021-02-01] MEDS: ZINC GLUCONATE 50 MG TABLET PO SCH (10:18)
[2021-02-01] MEDS: FAMOTIDINE 20 MG TABLET PO SCH (10:19)
[2021-02-01] MEDS: CLOPIDOGREL 75 MG TABLET PO SCH (10:19)
[2021-02-01] MEDS: CETIRIZINE 10 MG TABLET PO SCH (10:19)
[2021-02-01] MEDS: carvediloL 25 MG TABLET PO SCH (10:19)
[2021-02-01] MEDS: MAGNESIUM OXIDE 400 MG TABLET PO SCH (10:19)
[2021-02-01] MEDS: ISOSORBIDE MONONITRATE 30 MG TABLET PO SCH (10:20)
[2021-02-01 12:17] VITALS: BP 137/63
== END 2021-02-01 04:20 | DRG 177 ==
LOC: EDBD → EDUNIT# → N.EDINP 14:12 → N.ED 14:12 → N.2E 16:35 → SUATTDRO 16:53 → N.2E 16:55
PROVIDERS: ADMIT Internal Medicine; ATTEND Emergency Medicine

== ENCOUNTER 2021-03-27 13:17 | Inpatient (IN) ==
[2021-03-27 13:41] LABS: Basophils % 0.3 % (0.0-0.8); Eosinophils # 0.1 10*3/uL (0.0-0.87); Eosinophils % 0.8 % (0.00-10.9); Hematocrit 22.2 VOL% (35.7-47.0); Hemoglobin 6.7 GM/DL (12.0-16.0); Immature Granulocytes % 0.5 %; Immature Granulocytes Absolute 0.04 #; Lymphocytes # 1.4 10*3/uL (1.4-4.0); Lymphocytes % 18.3 % (21.3-54.2); Mean Corpuscular HGB Conc 30.2 GM/DL (32-36); Mean Corpuscular Volume 95.7 FL (87-102); Mean Platelet Volume 10.3 FL (9.6-12.0); Monocytes % 4.8 % (1.7-12.7); Neutrophils % 75.3 % (38.7-73.9); Platelet Count 225 T/CUMM (130-400); Red Blood Count 2.32 MC/CUMM (3.8-5.5); Red Cell Distribution Width 14.5 % (9.3-17.3); White Blood Count 7.7 T/CUMM (4-12)
[2021-03-27 13:51] LABS: INR 1.1; PT Patient Result 11.9 SECS (10.5-12.0); Partial Thromboplastin Time 31.5 SECS (23.8-32.1)
[2021-03-27 14:05] LABS: Alanine Aminotransferase 20 U/L (13-56); Albumin 3.5 G/DL (3.4-5.0); Alkaline Phosphatase 78 U/L (45-117); Aspartate Amino Transferase 5 U/L (0-37); Bilirubin,Total < 0.39 MG/DL (0.20-1.00); Blood Urea Nitrogen 95 MG/DL (7-18); Carbon Dioxide 14 MMOL/L (21-32); Estimated Glom Filtration Rate 14 ML/MIN; Glucose 276 MG/DL (74-106); Osmolality,Calculated 319.3 MOS/KG (273-304); Potassium 5.7 MMOL/L (3.5-5.1); Sodium 141 MMOL/L (136-145); Total Protein 6.5 G/DL (6.4-8.2)
[2021-03-27] MEDS ORDERED: ONDANSETRON 4 MG/2 ML VIAL IV STA (14:10)
[2021-03-27] MEDS ORDERED: MORPHINE 2 MG/1 ML SYRINGE IV STA (14:10)
[2021-03-27] MEDS ORDERED: HYDROmorphone 2 MG/1 ML VIAL IV STA (14:23)
[2021-03-27] MEDS ORDERED: HYDROmorphone 2 MG/1 ML VIAL ONE (14:24)
[2021-03-27] MEDS ORDERED: SODIUM CHLORIDE 0.9% 1,000 ML IV STA (14:29)
[2021-03-27] MEDS ORDERED: CALCIUM GLUCONATE 1,000 MG in SODIUM CHLORIDE 0.9% 100 ML IV ONE (14:30)
[2021-03-27] MEDS ORDERED: DEXTROSE 50% 25 GM/50 ML VIAL IV STA (14:30)
[2021-03-27] MEDS ORDERED: INSULIN REGULAR 100 UNIT/ML IV STA (14:30)
[2021-03-27 15:22] LABS: Bilirubin,Urine Negative (Negative); Blood, Urine Negative (Negative); Glucose,Urine (UA) >=500 mg/dL (Negative); Ketones,Urine Negative (Negative); Mucus,Urine Occasional /LPF (Occasional); Nitrite,Urine Negative (Negative); Protein,Urine 100 MG/DL; RBC,Urine 2 /HPF (0-4); Squamous Epithelial Cell,Urine Occasional /HPF (0-10); Urine Appearance CLEAR (Clear); Urine Color Yellow (Yellow); Urine Specific Gravity 1.012 (1.001-1.035); Urine Urobilinogen < 2.0 EU/DL (0.2-1.0)
[2021-03-27] MEDS ORDERED: ONDANSETRON 4 MG/2 ML VIAL IV PRN (16:29)
[2021-03-27] MEDS ORDERED: GLUCAGON 1 MG VIAL IM PRN (16:29)
[2021-03-27] MEDS ORDERED: ACETAMINOPHEN 325 MG TABLET PO PRN (16:29)
[2021-03-27] MEDS ORDERED: DEXTROSE 50% 25 GM/50 ML VIAL IV PRN (16:29)
[2021-03-27] MEDS ORDERED: SODIUM CHLORIDE 0.9% 1,000 ML IV PRN (16:36)
[2021-03-27] MEDS: SODIUM CHLORIDE 0.45% 1,000 ML IV SCH (16:52)
[2021-03-27 17:30] LABS: Thyroid Stimulating Hormone 0.67 uIU/ml (0.358-3.74)
[2021-03-27] MEDS: INSULIN LISPRO 100 UNIT/ML SUBCUT SCH ×2 (17:56→21:40)
[2021-03-27] MEDS ORDERED: cloNIDine 0.1 MG TABLET PO PRN (18:00)
[2021-03-27] MEDS ORDERED: ALUM/MAG/SIMETH/LIDO VISC 1:1 30 ML BOTTLE PO ONE (18:02)
[2021-03-27] MEDS ORDERED: NITROGLYCERIN SL 0.4 MG TABLET SL PRN (18:03)
[2021-03-27] MEDS ORDERED: ALBUTEROL 2.5 MG/3 ML NEB RESP TX PRN (18:08)
[2021-03-27] MEDS: PANTOPRAZOLE 40 MG TABLET PO SCH (19:07)
[2021-03-27] MEDS: carvediloL 25 MG TABLET PO SCH (21:40)
[2021-03-27] MEDS: NON-FORMULARY MEDICATION (Budesonide-Glycopyr-Formoterol [Breztri Aerosphere] 160-9-4.8 mc INH SCH (21:40)
[2021-03-27] MEDS: INSULIN GLARGINE 100 UNIT/ML SUBCUT SCH (21:44)
[2021-03-27 22:42] LABS: Hematocrit 23.1 VOL% (35.7-47.0); Hemoglobin 7.1 GM/DL (12.0-16.0)
[2021-03-27 23:02] LABS: Calcium 8.9 MG/DL (8.5-10.1); Osmolality,Calculated 314.3 MOS/KG (273-304); Potassium 5.7 MMOL/L (3.5-5.1)
[2021-03-28] MEDS: SODIUM CHLORIDE 0.45% 1,000 ML IV SCH ×3 (02:00→18:01)
[2021-03-28] MEDS: LEVOTHYROXINE 200 MCG TABLET PO SCH (05:48)
[2021-03-28 06:15] LABS: Basophils % 0.3 % (0.0-0.8); Eosinophils % 0.4 % (0.00-10.9); Hematocrit 27.5 VOL% (35.7-47.0); Hemoglobin 8.5 GM/DL (12.0-16.0); Immature Granulocytes % 0.3 %; Immature Granulocytes Absolute 0.03 #; Lymphocytes # 1.7 10*3/uL (1.4-4.0); Lymphocytes % 18.1 % (21.3-54.2); Mean Corpuscular HGB Conc 30.9 GM/DL (32-36); Mean Corpuscular Volume 94.5 FL (87-102); Mean Platelet Volume 10.4 FL (9.6-12.0); Monocytes % 7.9 % (1.7-12.7); Platelet Count 231 T/CUMM (130-400); Red Blood Count 2.91 MC/CUMM (3.8-5.5); Red Cell Distribution Width 14.6 % (9.3-17.3); White Blood Count 9.2 T/CUMM (4-12)
[2021-03-28 07:07] LABS: High Sensitive Troponin I* 16136.1 ng/L (0-54)
[2021-03-28 08:12] LABS: Calcium 9.3 MG/DL (8.5-10.1); Potassium 5.5 MMOL/L (3.5-5.1)
[2021-03-28] MEDS ORDERED: INSULIN REGULAR 100 UNIT/ML IV ONE (08:45)
[2021-03-28] MEDS ORDERED: SODIUM POLYSTYRENE SULFATE 15 GM/60 ML BOTTLE PO ONE (08:45)
[2021-03-28] MEDS ORDERED: DEXTROSE 50% 25 GM/50 ML VIAL IV ONE (08:45)
[2021-03-28] MEDS ORDERED: CALCIUM GLUCONATE 1,000 MG in SODIUM CHLORIDE 0.9% 100 ML IV ONE (08:45)
[2021-03-28] MEDS ORDERED: PANTOPRAZOLE 40 MG TABLET PO SCH (09:00)
[2021-03-28] MEDS: PANTOPRAZOLE 40 MG TABLET PO SCH ×2 (09:01→18:01)
[2021-03-28] MEDS: DOXAZOSIN 1 MG TABLET PO SCH (09:01)
[2021-03-28] MEDS: carvediloL 25 MG TABLET PO SCH ×2 (09:01→18:02)
[2021-03-28] MEDS: ISOSORBIDE MONONITRATE 30 MG TABLET PO SCH (09:01)
[2021-03-28 09:05] LABS: % Iron Saturation 12.3 % (18-50)
[2021-03-28 10:58] LABS: Folate 7.38 NG/ML (5.38-24.0)
[2021-03-28] MEDS: INSULIN LISPRO 100 UNIT/ML SUBCUT SCH ×3 (11:38→21:05)
[2021-03-28 13:22] LABS: Calcium 9.4 MG/DL (8.5-10.1); Osmolality,Calculated 309.4 MOS/KG (273-304)
[2021-03-28] MEDS: NON-FORMULARY MEDICATION (Budesonide-Glycopyr-Formoterol [Breztri Aerosphere] 160-9-4.8 mc INH SCH ×2 (14:07→21:05)
[2021-03-28] MEDS ORDERED: FUROSEMIDE 40 MG/4 ML VIAL IV ONE (15:48)
[2021-03-28] MEDS: NITROGLYCERIN 2% OINT 1 INCH/GM PACK TOP SCH ×4 (16:12→23:39)
[2021-03-28] MEDS: ROSUVASTATIN 20 MG TABLET PO SCH (21:04)
[2021-03-28] MEDS: INSULIN GLARGINE 100 UNIT/ML SUBCUT SCH (21:05)
[2021-03-29] MEDS: SODIUM CHLORIDE 0.45% 1,000 ML IV SCH ×4 (05:42→23:24)
[2021-03-29] MEDS: LEVOTHYROXINE 200 MCG TABLET PO SCH (05:43)
[2021-03-29] MEDS: NITROGLYCERIN 2% OINT 1 INCH/GM PACK TOP SCH ×4 (06:15→23:22)
[2021-03-29 06:30] LABS: Basophils % 0.5 % (0.0-0.8); Eosinophils # 0.1 10*3/uL (0.0-0.87); Eosinophils % 0.9 % (0.00-10.9); Hematocrit 25.4 VOL% (35.7-47.0); Hemoglobin 7.8 GM/DL (12.0-16.0); Immature Granulocytes % 0.3 %; Immature Granulocytes Absolute 0.02 #; Lymphocytes # 1.5 10*3/uL (1.4-4.0); Mean Corpuscular HGB Conc 30.7 GM/DL (32-36); Mean Corpuscular Volume 95.1 FL (87-102); Mean Platelet Volume 9.6 FL (9.6-12.0); Monocytes % 10.2 % (1.7-12.7); Neutrophils % 65.1 % (38.7-73.9); Platelet Count 196 T/CUMM (130-400); Red Blood Count 2.67 MC/CUMM (3.8-5.5); Red Cell Distribution Width 14.7 % (9.3-17.3); White Blood Count 6.7 T/CUMM (4-12)
[2021-03-29 06:59] LABS: Calcium 9.1 MG/DL (8.5-10.1); Osmolality,Calculated 302.4 MOS/KG (273-304); Potassium 4.5 MMOL/L (3.5-5.1)
[2021-03-29] MEDS: LACTATED RINGERS 1,000 ML IV SCH (07:30)
[2021-03-29] MEDS ORDERED: LIDOCAINE 2% 5 ML VIAL ONE (08:05)
[2021-03-29] MEDS ORDERED: ETOMIDATE 20 MG/10 ML VIAL IV ONE (08:05)
[2021-03-29] MEDS ORDERED: propofoL 200 MG/20 ML VIAL IV ONE (08:05)
[2021-03-29] MEDS: PANTOPRAZOLE 40 MG TABLET PO SCH ×2 (08:08→16:36)
[2021-03-29] MEDS: INSULIN LISPRO 100 UNIT/ML SUBCUT SCH ×4 (08:08→22:05)
[2021-03-29] MEDS: carvediloL 25 MG TABLET PO SCH ×2 (08:08→16:35)
[2021-03-29] MEDS: NON-FORMULARY MEDICATION (Budesonide-Glycopyr-Formoterol [Breztri Aerosphere] 160-9-4.8 mc INH SCH ×2 (08:08→22:07)
[2021-03-29] MEDS: DOXAZOSIN 1 MG TABLET PO SCH (08:09)
[2021-03-29] MEDS: hydrALAZINE 20 MG/1 ML VIAL IV PRN (11:01)
[2021-03-29] MEDS: ROSUVASTATIN 20 MG TABLET PO SCH (22:04)
[2021-03-29] MEDS: INSULIN GLARGINE 100 UNIT/ML SUBCUT SCH (22:05)
[2021-03-30 05:25] LABS: Basophils % 0.4 % (0.0-0.8); Eosinophils # 0.2 10*3/uL (0.0-0.87); Eosinophils % 2.4 % (0.00-10.9); Hematocrit 24.5 VOL% (35.7-47.0); Hemoglobin 7.7 GM/DL (12.0-16.0); Immature Granulocytes % 0.2 %; Immature Granulocytes Absolute 0.02 #; Lymphocytes # 2.3 10*3/uL (1.4-4.0); Mean Corpuscular HGB Conc 31.4 GM/DL (32-36); Mean Corpuscular Volume 92.8 FL (87-102); Mean Platelet Volume 10.3 FL (9.6-12.0); Monocytes % 11.4 % (1.7-12.7); Neutrophils % 57.6 % (38.7-73.9); Platelet Count 203 T/CUMM (130-400); Red Blood Count 2.64 MC/CUMM (3.8-5.5); Red Cell Distribution Width 14.7 % (9.3-17.3); White Blood Count 8.1 T/CUMM (4-12)
[2021-03-30 05:51] LABS: Calcium 8.8 MG/DL (8.5-10.1); Osmolality,Calculated 298.7 MOS/KG (273-304); Potassium 4.6 MMOL/L (3.5-5.1)
[2021-03-30] MEDS: NITROGLYCERIN 2% OINT 1 INCH/GM PACK TOP SCH ×2 (06:09→12:19)
[2021-03-30] MEDS: SODIUM CHLORIDE 0.45% 1,000 ML IV SCH ×2 (06:09→13:58)
[2021-03-30] MEDS ORDERED: FUROSEMIDE 20 MG/2 ML VIAL IV ONE (08:05)
[2021-03-30] MEDS: DOXAZOSIN 1 MG TABLET PO SCH (09:04)
[2021-03-30] MEDS: LEVOTHYROXINE 200 MCG TABLET PO SCH (09:04)
[2021-03-30] MEDS: carvediloL 25 MG TABLET PO SCH ×2 (09:05→16:12)
[2021-03-30] MEDS: PANTOPRAZOLE 40 MG TABLET PO SCH ×2 (09:05→16:12)
[2021-03-30] MEDS: POLYETHYLENE GLYCOL POWDER 17 GM PACK PO SCH ×2 (09:05→21:06)
[2021-03-30] MEDS: NON-FORMULARY MEDICATION (Budesonide-Glycopyr-Formoterol [Breztri Aerosphere] 160-9-4.8 mc INH SCH ×2 (09:58→21:09)
[2021-03-30] MEDS: INSULIN LISPRO 100 UNIT/ML SUBCUT SCH ×4 (09:58→21:09)
[2021-03-30] MEDS: LACTATED RINGERS 1,000 ML IV SCH (11:31)
[2021-03-30] MEDS: SUCRALFATE 1 GM TABLET PO SCH ×3 (12:20→23:38)
[2021-03-30] MEDS ORDERED: SODIUM CHLORIDE 0.9% 1,000 ML IV PRN (17:11)
[2021-03-30] MEDS ORDERED: FUROSEMIDE 40 MG/4 ML VIAL IV ONE (17:22)
[2021-03-30] MEDS: ROSUVASTATIN 20 MG TABLET PO SCH (21:07)
[2021-03-30] MEDS: INSULIN GLARGINE 100 UNIT/ML SUBCUT SCH (21:09)
[2021-03-31 05:28] LABS: Basophils % 0.4 % (0.0-0.8); Eosinophils # 0.4 10*3/uL (0.0-0.87); Eosinophils % 5.3 % (0.00-10.9); Hematocrit 25.9 VOL% (35.7-47.0); Immature Granulocytes % 0.6 %; Immature Granulocytes Absolute 0.04 #; Lymphocytes # 1.7 10*3/uL (1.4-4.0); Lymphocytes % 24.2 % (21.3-54.2); Mean Corpuscular HGB Conc 30.9 GM/DL (32-36); Mean Corpuscular Volume 93.2 FL (87-102); Mean Platelet Volume 10.2 FL (9.6-12.0); Monocytes % 11.3 % (1.7-12.7); Neutrophils % 58.2 % (38.7-73.9); Platelet Count 197 T/CUMM (130-400); Red Blood Count 2.78 MC/CUMM (3.8-5.5); Red Cell Distribution Width 14.5 % (9.3-17.3); White Blood Count 7.2 T/CUMM (4-12)
[2021-03-31] MEDS: LEVOTHYROXINE 200 MCG TABLET PO SCH (05:35)
[2021-03-31] MEDS: SUCRALFATE 1 GM TABLET PO SCH ×3 (05:35→17:48)
[2021-03-31] MEDS: LACTATED RINGERS 1,000 ML IV SCH (05:47)
[2021-03-31 05:58] LABS: Bilirubin,Total 0.7 MG/DL (0.20-1.00); Calcium 8.7 MG/DL (8.5-10.1); Osmolality,Calculated 299.8 MOS/KG (273-304); Potassium 5.2 MMOL/L (3.5-5.1); Total Protein 6.7 G/DL (6.4-8.2)
[2021-03-31] MEDS: ISOSORBIDE MONONITRATE 30 MG TABLET PO SCH (08:54)
[2021-03-31] MEDS: PANTOPRAZOLE 40 MG TABLET PO SCH ×2 (08:54→16:31)
[2021-03-31] MEDS: DOXAZOSIN 1 MG TABLET PO SCH (08:54)
[2021-03-31] MEDS: POLYETHYLENE GLYCOL POWDER 17 GM PACK PO SCH ×2 (08:54→20:55)
[2021-03-31] MEDS: SODIUM BICARBONATE 650 MG TABLET PO SCH ×3 (08:57→20:55)
[2021-03-31] MEDS ORDERED: SODIUM POLYSTYRENE SULFATE 15 GM/60 ML BOTTLE PO STA (08:59)
[2021-03-31] MEDS: carvediloL 25 MG TABLET PO SCH ×2 (09:10→16:31)
[2021-03-31] MEDS: INSULIN LISPRO 100 UNIT/ML SUBCUT SCH ×4 (09:10→20:56)
[2021-03-31] MEDS: NON-FORMULARY MEDICATION (Budesonide-Glycopyr-Formoterol [Breztri Aerosphere] 160-9-4.8 mc INH SCH ×2 (09:10→20:55)
[2021-03-31] MEDS ORDERED: FUROSEMIDE 40 MG/4 ML VIAL IV ONE (10:45)
[2021-03-31] MEDS: ROSUVASTATIN 20 MG TABLET PO SCH (20:55)
[2021-03-31] MEDS: INSULIN GLARGINE 100 UNIT/ML SUBCUT SCH (20:58)
[2021-04-01] MEDS: SUCRALFATE 1 GM TABLET PO SCH ×4 (00:23→17:29)
[2021-04-01 04:01] LABS: ABG Base Excess -11.2 MMOL/L (-2.5-2.5); ABG HCO3 15.1 MMOL/L (20-26); ABG Oxygen Saturation 96.5 % (95-100); ABG PCO2 35.5 MM HG (35-48); ABG PH 7.248 (7.35-7.45); ABG TCO2 16.2 MMOL/L (23-27)
[2021-04-01 05:12] LABS: Basophils % 0.6 % (0.0-0.8); Eosinophils # 0.3 10*3/uL (0.0-0.87); Eosinophils % 4.8 % (0.00-10.9); Hematocrit 22.5 VOL% (35.7-47.0); Hemoglobin 7.1 GM/DL (12.0-16.0); Immature Granulocytes % 0.3 %; Immature Granulocytes Absolute 0.02 #; Lymphocytes # 1.9 10*3/uL (1.4-4.0); Mean Corpuscular HGB Conc 31.6 GM/DL (32-36); Mean Corpuscular Volume 91.5 FL (87-102); Mean Platelet Volume 9.9 FL (9.6-12.0); Monocytes % 10.8 % (1.7-12.7); Neutrophils % 53.5 % (38.7-73.9); Platelet Count 194 T/CUMM (130-400); Red Blood Count 2.46 MC/CUMM (3.8-5.5); Red Cell Distribution Width 14.1 % (9.3-17.3); White Blood Count 6.2 T/CUMM (4-12)
[2021-04-01 05:27] LABS: Calcium 8.4 MG/DL (8.5-10.1); Osmolality,Calculated 302.8 MOS/KG (273-304); Potassium 4.7 MMOL/L (3.5-5.1); Uric Acid 7.8 MG/DL (2.6-6.0)
[2021-04-01 05:32] LABS: Albumin 2.8 G/DL (3.4-5.0); Bilirubin,Total 0.5 MG/DL (0.20-1.00); Calcium 8.3 MG/DL (8.5-10.1); Osmolality,Calculated 302.7 MOS/KG (273-304); Potassium 4.7 MMOL/L (3.5-5.1); Total Protein 6.2 G/DL (6.4-8.2)
[2021-04-01] MEDS: LEVOTHYROXINE 200 MCG TABLET PO SCH (06:03)
[2021-04-01] MEDS ORDERED: FUROSEMIDE 40 MG/4 ML VIAL IV SCH (08:00)
[2021-04-01] MEDS: ISOSORBIDE MONONITRATE 30 MG TABLET PO SCH (08:18)
[2021-04-01] MEDS: DOXAZOSIN 1 MG TABLET PO SCH (08:19)
[2021-04-01] MEDS: POLYETHYLENE GLYCOL POWDER 17 GM PACK PO SCH ×2 (08:19→22:03)
[2021-04-01] MEDS: PANTOPRAZOLE 40 MG TABLET PO SCH ×2 (08:19→19:35)
[2021-04-01] MEDS: CHOLECALCIFEROL 1,000 UNIT TABLET PO SCH (08:19)
[2021-04-01] MEDS: carvediloL 25 MG TABLET PO SCH ×2 (08:19→19:24)
[2021-04-01] MEDS: SODIUM BICARBONATE 650 MG TABLET PO SCH ×3 (08:19→22:02)
[2021-04-01] MEDS: FUROSEMIDE 100 MG/10 ML VIAL IV SCH ×2 (08:20→19:32)
[2021-04-01] MEDS: NON-FORMULARY MEDICATION (Budesonide-Glycopyr-Formoterol [Breztri Aerosphere] 160-9-4.8 mc INH SCH ×2 (08:25→22:03)
[2021-04-01] MEDS ORDERED: SODIUM CHLORIDE 0.9% 1,000 ML IV PRN (08:29)
[2021-04-01] MEDS ORDERED: FUROSEMIDE 20 MG/2 ML VIAL IV PRN (08:29)
[2021-04-01] MEDS: INSULIN LISPRO 100 UNIT/ML SUBCUT SCH ×5 (09:00→22:03)
[2021-04-01] MEDS: predniSONE 20 MG TABLET PO SCH (17:29)
[2021-04-01] MEDS: ROSUVASTATIN 20 MG TABLET PO SCH (22:02)
[2021-04-01] MEDS: INSULIN GLARGINE 100 UNIT/ML SUBCUT SCH (22:03)
[2021-04-02] MEDS: SUCRALFATE 1 GM TABLET PO SCH ×5 (01:25→23:16)
[2021-04-02 05:46] LABS: Basophils % 0.2 % (0.0-0.8); Eosinophils % 0.2 % (0.00-10.9); Hematocrit 26.8 VOL% (35.7-47.0); Immature Granulocytes % 0.8 %; Immature Granulocytes Absolute 0.04 #; Lymphocytes % 20.7 % (21.3-54.2); Mean Corpuscular HGB Conc 32.5 GM/DL (32-36); Mean Corpuscular Volume 90.2 FL (87-102); Mean Platelet Volume 10.4 FL (9.6-12.0); Neutrophils % 70.1 % (38.7-73.9); Platelet Count 240 T/CUMM (130-400); Red Blood Count 2.97 MC/CUMM (3.8-5.5); White Blood Count 4.9 T/CUMM (4-12)
[2021-04-02] MEDS: LEVOTHYROXINE 200 MCG TABLET PO SCH (06:04)
[2021-04-02 06:10] LABS: Osmolality,Calculated 305.7 MOS/KG (273-304); Potassium 4.6 MMOL/L (3.5-5.1)
[2021-04-02 06:11] LABS: Albumin 3.1 G/DL (3.4-5.0); Bilirubin,Total 0.7 MG/DL (0.20-1.00); Calcium 8.9 MG/DL (8.5-10.1); Osmolality,Calculated 310.4 MOS/KG (273-304); Potassium 4.6 MMOL/L (3.5-5.1)
[2021-04-02 06:12] LABS: Hemoglobin 8.7 GM/DL (12.0-16.0)
[2021-04-02] MEDS: INSULIN LISPRO 100 UNIT/ML SUBCUT SCH ×4 (08:11→20:21)
[2021-04-02] MEDS: PANTOPRAZOLE 40 MG TABLET PO SCH ×2 (08:12→16:40)
[2021-04-02] MEDS: CHOLECALCIFEROL 1,000 UNIT TABLET PO SCH (08:12)
[2021-04-02] MEDS: ISOSORBIDE MONONITRATE 30 MG TABLET PO SCH (08:12)
[2021-04-02] MEDS: SODIUM BICARBONATE 650 MG TABLET PO SCH ×3 (08:12→20:21)
[2021-04-02] MEDS: predniSONE 20 MG TABLET PO SCH (08:12)
[2021-04-02] MEDS: POLYETHYLENE GLYCOL POWDER 17 GM PACK PO SCH ×2 (08:13→20:22)
[2021-04-02] MEDS: carvediloL 25 MG TABLET PO SCH ×2 (08:13→16:40)
[2021-04-02] MEDS: DOXAZOSIN 1 MG TABLET PO SCH (08:13)
[2021-04-02] MEDS: FUROSEMIDE 100 MG/10 ML VIAL IV SCH ×2 (08:21→16:48)
[2021-04-02] MEDS: NON-FORMULARY MEDICATION (Budesonide-Glycopyr-Formoterol [Breztri Aerosphere] 160-9-4.8 mc INH SCH (12:29)
[2021-04-02] MEDS: hydrALAZINE 20 MG/1 ML VIAL IV PRN (17:09)
[2021-04-02] MEDS: ROSUVASTATIN 20 MG TABLET PO SCH (20:20)
[2021-04-02] MEDS: INSULIN GLARGINE 100 UNIT/ML SUBCUT SCH (20:21)
[2021-04-03 05:53] LABS: Basophils % 0.5 % (0.0-0.8); Eosinophils # 0.1 10*3/uL (0.0-0.87); Eosinophils % 1.7 % (0.00-10.9); Hematocrit 28.5 VOL% (35.7-47.0); Hemoglobin 9.3 GM/DL (12.0-16.0); Immature Granulocytes % 0.5 %; Immature Granulocytes Absolute 0.04 #; Lymphocytes # 2.1 10*3/uL (1.4-4.0); Lymphocytes % 27.6 % (21.3-54.2); Mean Corpuscular HGB Conc 32.6 GM/DL (32-36); Monocytes % 10.7 % (1.7-12.7); Platelet Count 294 T/CUMM (130-400); Red Blood Count 3.24 MC/CUMM (3.8-5.5); Red Cell Distribution Width 13.6 % (9.3-17.3); White Blood Count 7.5 T/CUMM (4-12)
[2021-04-03] MEDS: LEVOTHYROXINE 200 MCG TABLET PO SCH (06:35)
[2021-04-03] MEDS: SUCRALFATE 1 GM TABLET PO SCH ×2 (06:35→12:34)
[2021-04-03 06:36] LABS: Albumin 3.1 G/DL (3.4-5.0); Bilirubin,Total 0.8 MG/DL (0.20-1.00); Calcium 9.1 MG/DL (8.5-10.1); Osmolality,Calculated 313.4 MOS/KG (273-304); Potassium 4.3 MMOL/L (3.5-5.1)
[2021-04-03] MEDS: INSULIN LISPRO 100 UNIT/ML SUBCUT SCH ×2 (08:43→12:34)
[2021-04-03] MEDS: SODIUM BICARBONATE 650 MG TABLET PO SCH (08:43)
[2021-04-03] MEDS: CHOLECALCIFEROL 1,000 UNIT TABLET PO SCH (08:44)
[2021-04-03] MEDS: DOXAZOSIN 1 MG TABLET PO SCH (08:45)
[2021-04-03] MEDS: carvediloL 25 MG TABLET PO SCH (08:45)
[2021-04-03] MEDS: predniSONE 20 MG TABLET PO SCH (08:45)
[2021-04-03] MEDS: PANTOPRAZOLE 40 MG TABLET PO SCH (08:46)
[2021-04-03] MEDS: ISOSORBIDE MONONITRATE 30 MG TABLET PO SCH (08:46)
[2021-04-03] MEDS: FUROSEMIDE 100 MG/10 ML VIAL IV SCH (09:53)
[2021-04-03] MEDS: POLYETHYLENE GLYCOL POWDER 17 GM PACK PO SCH (10:12)
[2021-04-03 11:58] VITALS: BP 186/88
[2021-04-03] MEDS ORDERED: ASPIRIN EC 81 MG TABLET PO SCH (13:30)
== END 2021-04-03 13:28 | disposition home or self-care (01) | DRG 377 ==
LOC: EDUNIT# → SUATTDRO → N.ED 13:17 → N.EDINP 15:07 → SUATTDRO 15:07 → N.3E 17:32
PROVIDERS: ADMIT Internal Medicine; ATTEND Internal Medicine

== ENCOUNTER 2021-08-24 12:33 | Inpatient (IN) ==
[2021-08-24] MEDS ORDERED: ASPIRIN 325 MG TABLET PO STA (12:51)
[2021-08-24] MEDS ORDERED: KETOROLAC 30 MG/1 ML VIAL IV STA (13:05)
[2021-08-24 13:24] LABS: Eosinophils % 0.4 % (0.00-10.9); Hematocrit 28.6 VOL% (35.7-47.0); Hemoglobin 8.5 GM/DL (12.0-16.0); Immature Granulocytes % 1.7 %; Immature Granulocytes Absolute 0.12 #; Lymphocytes # 0.7 10*3/uL (1.4-4.0); Lymphocytes % 9.6 % (21.3-54.2); Mean Corpuscular HGB Conc 29.7 GM/DL (32-36); Mean Corpuscular Volume 94.4 FL (87-102); Mean Platelet Volume 10.6 FL (9.6-12.0); Monocytes % 3.3 % (1.7-12.7); Platelet Count 137 T/CUMM (130-400); Red Blood Count 3.03 MC/CUMM (3.8-5.5); Red Cell Distribution Width 15.9 % (9.3-17.3)
[2021-08-24 13:41] LABS: Alanine Aminotransferase 32 U/L (13-56); Albumin 3.2 G/DL (3.4-5.0); Alkaline Phosphatase 122 U/L (45-117); Aspartate Amino Transferase 7 U/L (0-37); Bilirubin,Total < 0.39 MG/DL (0.20-1.00); Blood Urea Nitrogen 128 MG/DL (7-18); Calcium 8.4 MG/DL (8.5-10.1); Carbon Dioxide 11 MMOL/L (21-32); Estimated Glom Filtration Rate 5 ML/MIN; Glucose 210 MG/DL (74-106); Osmolality,Calculated 314.2 MOS/KG (273-304); Sodium 134 MMOL/L (136-145); Total Protein 6.6 G/DL (6.4-8.2)
[2021-08-24 13:48] LABS: Potassium 7.1 MMOL/L (3.5-5.1)
[2021-08-24] MEDS ORDERED: DEXTROSE 50% 25 GM/50 ML VIAL IV STA (14:13)
[2021-08-24] MEDS ORDERED: SODIUM BICARBONATE 50 MEQ/50 ML VIAL IV STA (14:13)
[2021-08-24] MEDS ORDERED: CALCIUM CHLORIDE 1,000 MG/10 ML SYRINGE IV STA (14:14)
[2021-08-24] MEDS ORDERED: INSULIN REGULAR 100 UNIT/ML IV STA (14:14)
[2021-08-24] MEDS ORDERED: DEXTROSE 50% 25 GM/50 ML SYRINGE IV ONE (14:17)
[2021-08-24] MEDS ORDERED: HYDROmorphone 1 MG/1 ML SYRINGE IV STA (15:29)
[2021-08-24] MEDS ORDERED: MIDAZOLAM 2 MG/2 ML VIAL IV STA (15:30)
[2021-08-24] MEDS ORDERED: GLUCAGON 1 MG VIAL IM PRN (16:27)
[2021-08-24] MEDS ORDERED: ALBUTEROL 2.5 MG/3 ML NEB RESP TX PRN (16:28)
[2021-08-24] MEDS ORDERED: DEXTROSE 10% 250 ML BAG IV PRN (16:36)
[2021-08-24] MEDS: INSULIN GLARGINE 100 UNIT/ML SUBCUT SCH (18:07)
[2021-08-24] MEDS: SODIUM BICARB INJ 100 MEQ in STERILE WATER INJ 1,000 ML IV SCH (18:07)
[2021-08-24] MEDS ORDERED: HEPARIN 10,000 UNIT/10 ML VIAL IV ONE (19:00)
[2021-08-24 19:13] LABS: Bacteria,Urine Occasional /HPF (Few); Mucus,Urine Few /LPF (Occasional); RBC,Urine <1 /HPF (0-4); Squamous Epithelial Cell,Urine Occasional /HPF (0-10)
[2021-08-24 19:17] LABS: Urine Color Yellow (Yellow)
[2021-08-24 19:18] LABS: Bilirubin,Urine Negative (Negative); Blood, Urine Negative (Negative); Glucose,Urine (UA) Negative (Negative); Ketones,Urine Negative (Negative); Nitrite,Urine Negative (Negative); Protein,Urine >=300 mg/dL (Negative); Urine Appearance Clear (Clear); Urine Specific Gravity 1.025 (1.001-1.035); Urine Urobilinogen 0.2 eU/dL (<2.0)
[2021-08-24 19:38] LABS: Hepatitis B Core IgM Quant 0.16 Index; Hepatitis B Surface Ag Quant < 0.10 Index; Hepatitis B Surface Ag Result Non-Reactive (NonReactive); Hepatitis C Virus Ab Quant < 0.02 Index; Hepatitis C Virus Ab Result Non-Reactive (NonReactive)
[2021-08-24] MEDS: INSULIN LISPRO 100 UNIT/ML SUBCUT SCH (20:23)
[2021-08-25 05:50] LABS: Basophils % 0.1 % (0.0-0.8); Eosinophils # 0.1 10*3/uL (0.0-0.87); Hematocrit 23.8 VOL% (35.7-47.0); Hemoglobin 7.6 GM/DL (12.0-16.0); Immature Granulocytes % 0.7 %; Immature Granulocytes Absolute 0.05 #; Lymphocytes # 0.6 10*3/uL (1.4-4.0); Lymphocytes % 8.3 % (21.3-54.2); Mean Corpuscular HGB Conc 31.9 GM/DL (32-36); Mean Corpuscular Volume 89.5 FL (87-102); Mean Platelet Volume 11.7 FL (9.6-12.0); Monocytes % 6.5 % (1.7-12.7); Neutrophils % 83.4 % (38.7-73.9); Platelet Count 144 T/CUMM (130-400); Red Blood Count 2.66 MC/CUMM (3.8-5.5); Red Cell Distribution Width 15.7 % (9.3-17.3); White Blood Count 6.8 T/CUMM (4-12)
[2021-08-25] MEDS: LEVOTHYROXINE 150 MCG TABLET PO SCH (06:07)
[2021-08-25 06:19] LABS: Uric Acid 6.1 MG/DL (2.6-6.0)
[2021-08-25 06:28] LABS: Calcium 8.3 MG/DL (8.5-10.1); Osmolality,Calculated 303.8 MOS/KG (273-304); Potassium 4.3 MMOL/L (3.5-5.1)
[2021-08-25] MEDS: INSULIN LISPRO 100 UNIT/ML SUBCUT SCH ×4 (08:02→21:49)
[2021-08-25] MEDS ORDERED: NON-FORMULARY MEDICATION (Budesonide-Glycopyr-Formoterol [Breztri Aerosphere] 160-9-4.8 mc INH PRN (08:12)
[2021-08-25] MEDS: ASPIRIN EC 81 MG TABLET PO SCH (08:48)
[2021-08-25] MEDS: carvediloL 25 MG TABLET PO SCH ×2 (08:48→21:49)
[2021-08-25] MEDS: PANTOPRAZOLE 40 MG TABLET PO SCH (08:48)
[2021-08-25] MEDS: DOXAZOSIN 4 MG TABLET PO SCH (08:48)
[2021-08-25] MEDS: INSULIN GLARGINE 100 UNIT/ML SUBCUT SCH (08:49)
[2021-08-25] MEDS: SUCRALFATE 1 GM TABLET PO SCH ×2 (11:39→17:05)
[2021-08-25] MEDS: SODIUM BICARB INJ 100 MEQ in STERILE WATER INJ 1,000 ML IV SCH (14:36)
[2021-08-25] MEDS: SEVELAMER CARBONATE 800 MG TABLET PO SCH (17:05)
[2021-08-25] MEDS: ROSUVASTATIN 20 MG TABLET PO SCH (21:48)
[2021-08-25] MEDS: ONDANSETRON 4 MG/2 ML VIAL IV PRN (21:51)
[2021-08-26] MEDS: SUCRALFATE 1 GM TABLET PO SCH ×4 (00:32→18:40)
[2021-08-26] MEDS: ONDANSETRON 4 MG/2 ML VIAL IV PRN ×3 (04:43→18:45)
[2021-08-26 05:50] LABS: Basophils % 0.3 % (0.0-0.8); Eosinophils # 0.2 10*3/uL (0.0-0.87); Eosinophils % 3.3 % (0.00-10.9); Hematocrit 25.4 VOL% (35.7-47.0); Hemoglobin 8.2 GM/DL (12.0-16.0); Immature Granulocytes % 0.6 %; Immature Granulocytes Absolute 0.04 #; Lymphocytes # 0.9 10*3/uL (1.4-4.0); Lymphocytes % 11.8 % (21.3-54.2); Mean Corpuscular HGB Conc 32.3 GM/DL (32-36); Mean Corpuscular Volume 87.3 FL (87-102); Monocytes % 10.3 % (1.7-12.7); Neutrophils % 73.7 % (38.7-73.9); Platelet Count 127 T/CUMM (130-400); Red Blood Count 2.91 MC/CUMM (3.8-5.5); Red Cell Distribution Width 15.6 % (9.3-17.3); White Blood Count 7.2 T/CUMM (4-12)
[2021-08-26 06:13] LABS: Calcium 7.9 MG/DL (8.5-10.1); Osmolality,Calculated 298.4 MOS/KG (273-304); Potassium 4.9 MMOL/L (3.5-5.1)
[2021-08-26] MEDS: LEVOTHYROXINE 150 MCG TABLET PO SCH (06:16)
[2021-08-26 06:20] LABS: Eosinophils 7 % (0-10); Hypochromia 1+; Lymphocytes 16 % (20-55); Microcytosis 1+; Ovalocytes Slight; Platelet Estimate Normal; Segmented Neutrophils 69 % (50-85); Total Cells Counted 100
[2021-08-26] MEDS: SEVELAMER CARBONATE 800 MG TABLET PO SCH ×3 (08:39→18:40)
[2021-08-26] MEDS: DOXAZOSIN 4 MG TABLET PO SCH (08:39)
[2021-08-26] MEDS: PANTOPRAZOLE 40 MG TABLET PO SCH (08:39)
[2021-08-26] MEDS: ASPIRIN EC 81 MG TABLET PO SCH (08:39)
[2021-08-26] MEDS: carvediloL 25 MG TABLET PO SCH ×2 (08:40→21:16)
[2021-08-26] MEDS: INSULIN LISPRO 100 UNIT/ML SUBCUT SCH ×4 (08:41→21:17)
[2021-08-26] MEDS: INSULIN GLARGINE 100 UNIT/ML SUBCUT SCH (08:41)
[2021-08-26] MEDS ORDERED: HEPARIN 10,000 UNIT/10 ML VIAL IV SCH (18:30)
[2021-08-26] MEDS: ROSUVASTATIN 20 MG TABLET PO SCH (21:16)
[2021-08-27] MEDS: SUCRALFATE 1 GM TABLET PO SCH ×4 (00:02→17:37)
[2021-08-27 05:43] LABS: Basophils % 0.5 % (0.0-0.8); Eosinophils # 0.4 10*3/uL (0.0-0.87); Eosinophils % 5.7 % (0.00-10.9); Hematocrit 24.6 VOL% (35.7-47.0); Hemoglobin 8.1 GM/DL (12.0-16.0); Immature Granulocytes % 0.5 %; Immature Granulocytes Absolute 0.03 #; Lymphocytes # 0.9 10*3/uL (1.4-4.0); Lymphocytes % 12.8 % (21.3-54.2); Mean Corpuscular HGB Conc 32.9 GM/DL (32-36); Mean Corpuscular Volume 86.9 FL (87-102); Mean Platelet Volume 10.7 FL (9.6-12.0); Monocytes % 10.3 % (1.7-12.7); Neutrophils % 70.2 % (38.7-73.9); Platelet Count 144 T/CUMM (130-400); Red Blood Count 2.83 MC/CUMM (3.8-5.5); Red Cell Distribution Width 15.2 % (9.3-17.3); White Blood Count 6.6 T/CUMM (4-12)
[2021-08-27 06:09] LABS: Calcium 8.1 MG/DL (8.5-10.1); Osmolality,Calculated 285.1 MOS/KG (273-304); Potassium 4.1 MMOL/L (3.5-5.1)
[2021-08-27] MEDS: LEVOTHYROXINE 150 MCG TABLET PO SCH (06:29)
[2021-08-27] MEDS: carvediloL 25 MG TABLET PO SCH ×2 (08:58→22:12)
[2021-08-27] MEDS: SEVELAMER CARBONATE 800 MG TABLET PO SCH ×3 (08:58→17:37)
[2021-08-27] MEDS: PANTOPRAZOLE 40 MG TABLET PO SCH (08:58)
[2021-08-27] MEDS: ISOSORBIDE MONONITRATE 60 MG TABLET PO SCH (08:58)
[2021-08-27] MEDS: ASPIRIN EC 81 MG TABLET PO SCH (08:58)
[2021-08-27] MEDS: DOXAZOSIN 4 MG TABLET PO SCH (08:59)
[2021-08-27] MEDS: INSULIN GLARGINE 100 UNIT/ML SUBCUT SCH (09:00)
[2021-08-27] MEDS: INSULIN LISPRO 100 UNIT/ML SUBCUT SCH ×4 (09:00→22:13)
[2021-08-27] MEDS: ROSUVASTATIN 20 MG TABLET PO SCH (22:13)
[2021-08-28] MEDS: SUCRALFATE 1 GM TABLET PO SCH ×5 (00:53→23:56)
[2021-08-28 05:17] LABS: Basophils % 0.5 % (0.0-0.8); Eosinophils # 0.5 10*3/uL (0.0-0.87); Eosinophils % 7.1 % (0.00-10.9); Hematocrit 23.3 VOL% (35.7-47.0); Hemoglobin 7.6 GM/DL (12.0-16.0); Immature Granulocytes % 0.3 %; Immature Granulocytes Absolute 0.02 #; Lymphocytes # 1.2 10*3/uL (1.4-4.0); Lymphocytes % 18.3 % (21.3-54.2); Mean Corpuscular HGB Conc 32.6 GM/DL (32-36); Mean Corpuscular Volume 86.6 FL (87-102); Mean Platelet Volume 10.6 FL (9.6-12.0); Monocytes % 10.1 % (1.7-12.7); Neutrophils % 63.7 % (38.7-73.9); Platelet Count 133 T/CUMM (130-400); Red Blood Count 2.69 MC/CUMM (3.8-5.5); Red Cell Distribution Width 14.9 % (9.3-17.3); White Blood Count 6.5 T/CUMM (4-12)
[2021-08-28 05:38] LABS: Calcium 7.8 MG/DL (8.5-10.1); Osmolality,Calculated 282.7 MOS/KG (273-304)
[2021-08-28] MEDS: LEVOTHYROXINE 150 MCG TABLET PO SCH (06:35)
[2021-08-28] MEDS: ASPIRIN EC 81 MG TABLET PO SCH (08:24)
[2021-08-28] MEDS: DOXAZOSIN 4 MG TABLET PO SCH (08:24)
[2021-08-28] MEDS: ISOSORBIDE MONONITRATE 60 MG TABLET PO SCH (08:24)
[2021-08-28] MEDS: SEVELAMER CARBONATE 800 MG TABLET PO SCH ×3 (08:24→17:29)
[2021-08-28] MEDS: PANTOPRAZOLE 40 MG TABLET PO SCH (08:24)
[2021-08-28] MEDS: carvediloL 25 MG TABLET PO SCH ×2 (08:25→20:42)
[2021-08-28] MEDS: INSULIN GLARGINE 100 UNIT/ML SUBCUT SCH (08:26)
[2021-08-28] MEDS: INSULIN LISPRO 100 UNIT/ML SUBCUT SCH ×4 (08:27→20:43)
[2021-08-28] MEDS: DOCUSATE SODIUM 100 MG CAPSULE PO SCH (20:42)
[2021-08-28] MEDS: ROSUVASTATIN 20 MG TABLET PO SCH (20:42)
[2021-08-29] MEDS: LEVOTHYROXINE 150 MCG TABLET PO SCH (05:58)
[2021-08-29] MEDS: SUCRALFATE 1 GM TABLET PO SCH ×5 (05:58→23:34)
[2021-08-29 05:59] LABS: Basophils % 0.4 % (0.0-0.8); Eosinophils # 0.4 10*3/uL (0.0-0.87); Eosinophils % 6.9 % (0.00-10.9); Hemoglobin 7.2 GM/DL (12.0-16.0); Immature Granulocytes % 0.5 %; Immature Granulocytes Absolute 0.03 #; Lymphocytes # 1.1 10*3/uL (1.4-4.0); Lymphocytes % 20.1 % (21.3-54.2); Mean Corpuscular HGB Conc 34.3 GM/DL (32-36); Mean Corpuscular Volume 85.7 FL (87-102); Mean Platelet Volume 10.8 FL (9.6-12.0); Monocytes % 11.7 % (1.7-12.7); Neutrophils % 60.4 % (38.7-73.9); Platelet Count 120 T/CUMM (130-400); Red Blood Count 2.45 MC/CUMM (3.8-5.5); Red Cell Distribution Width 14.5 % (9.3-17.3); White Blood Count 5.5 T/CUMM (4-12)
[2021-08-29 06:23] LABS: Calcium 7.7 MG/DL (8.5-10.1); Osmolality,Calculated 279.1 MOS/KG (273-304); Potassium 4.7 MMOL/L (3.5-5.1)
[2021-08-29] MEDS: INSULIN LISPRO 100 UNIT/ML SUBCUT SCH ×5 (07:42→20:42)
[2021-08-29] MEDS ORDERED: SODIUM CHLORIDE 0.9% 1,000 ML IV PRN (08:53)
[2021-08-29] MEDS: ASPIRIN EC 81 MG TABLET PO SCH (09:18)
[2021-08-29] MEDS: PANTOPRAZOLE 40 MG TABLET PO SCH (09:18)
[2021-08-29] MEDS: SEVELAMER CARBONATE 800 MG TABLET PO SCH ×3 (09:18→16:25)
[2021-08-29] MEDS: DOXAZOSIN 4 MG TABLET PO SCH (09:18)
[2021-08-29] MEDS: DOCUSATE SODIUM 100 MG CAPSULE PO SCH ×2 (09:18→20:41)
[2021-08-29] MEDS: carvediloL 25 MG TABLET PO SCH ×2 (09:18→20:41)
[2021-08-29] MEDS: ISOSORBIDE MONONITRATE 60 MG TABLET PO SCH (09:18)
[2021-08-29] MEDS: INSULIN GLARGINE 100 UNIT/ML SUBCUT SCH (09:19)
[2021-08-29] MEDS: ROSUVASTATIN 20 MG TABLET PO SCH (20:41)
[2021-08-30 04:30] LABS: Basophils % 0.2 % (0.0-0.8); Eosinophils # 0.5 10*3/uL (0.0-0.87); Eosinophils % 8.1 % (0.00-10.9); Hematocrit 21.4 VOL% (35.7-47.0); Hemoglobin 7.1 GM/DL (12.0-16.0); Immature Granulocytes % 0.4 %; Immature Granulocytes Absolute 0.02 #; Lymphocytes # 1.1 10*3/uL (1.4-4.0); Lymphocytes % 19.1 % (21.3-54.2); Mean Corpuscular HGB Conc 33.2 GM/DL (32-36); Mean Corpuscular Volume 84.6 FL (87-102); Mean Platelet Volume 10.7 FL (9.6-12.0); Monocytes % 10.6 % (1.7-12.7); Neutrophils % 61.6 % (38.7-73.9); Platelet Count 137 T/CUMM (130-400); Red Blood Count 2.53 MC/CUMM (3.8-5.5); Red Cell Distribution Width 14.6 % (9.3-17.3); White Blood Count 5.6 T/CUMM (4-12)
[2021-08-30 04:58] LABS: Calcium 8.1 MG/DL (8.5-10.1); Osmolality,Calculated 280.9 MOS/KG (273-304); Potassium 4.5 MMOL/L (3.5-5.1)
[2021-08-30] MEDS: SUCRALFATE 1 GM TABLET PO SCH ×3 (05:11→17:37)
[2021-08-30] MEDS: LEVOTHYROXINE 150 MCG TABLET PO SCH (05:33)
[2021-08-30] MEDS: DOXAZOSIN 4 MG TABLET PO SCH (08:52)
[2021-08-30] MEDS: ISOSORBIDE MONONITRATE 60 MG TABLET PO SCH (08:53)
[2021-08-30] MEDS: carvediloL 25 MG TABLET PO SCH ×2 (08:53→20:38)
[2021-08-30] MEDS: SEVELAMER CARBONATE 800 MG TABLET PO SCH ×3 (10:01→17:37)
[2021-08-30] MEDS: INSULIN LISPRO 100 UNIT/ML SUBCUT SCH ×4 (10:01→21:52)
[2021-08-30] MEDS: ASPIRIN EC 81 MG TABLET PO SCH (10:01)
[2021-08-30] MEDS: DOCUSATE SODIUM 100 MG CAPSULE PO SCH ×2 (10:01→20:38)
[2021-08-30] MEDS: INSULIN GLARGINE 100 UNIT/ML SUBCUT SCH (10:01)
[2021-08-30] MEDS: PANTOPRAZOLE 40 MG TABLET PO SCH (10:02)
[2021-08-30] MEDS ORDERED: BUPIVACAINE MPF 0.25% 30 ML VIAL ONE (12:29)
[2021-08-30] MEDS ORDERED: HEPARIN 5,000 UNIT/1 ML VIAL ONE (12:30)
[2021-08-30] MEDS ORDERED: LIDOCAINE 1%/EPI INJ 20 ML VIAL ONE (12:30)
[2021-08-30] MEDS ORDERED: MIDAZOLAM 2 MG/2 ML VIAL ONE (12:49)
[2021-08-30] MEDS ORDERED: fentaNYL 100 MCG/2 ML VIAL ONE (12:50)
[2021-08-30] MEDS ORDERED: KETAMINE 500 MG/10 ML VIAL ONE (12:50)
[2021-08-30] MEDS ORDERED: SODIUM CHLORIDE 0.9% 250 ML IV SCH (13:00)
[2021-08-30] MEDS ORDERED: PROMETHAZINE INJ 25 MG in SODIUM CHLORIDE 0.9% 50 ML IV PRN (14:48)
[2021-08-30] MEDS ORDERED: diphenhydrAMINE 50 MG/1 ML VIAL IV PRN (14:48)
[2021-08-30] MEDS ORDERED: ONDANSETRON 4 MG/2 ML VIAL IV PRN (14:48)
[2021-08-30] MEDS: HYDROmorphone 1 MG/1 ML SYRINGE IV PRN ×4 (14:50→15:05)
[2021-08-30] MEDS ORDERED: HYDROmorphone 1 MG/1 ML SYRINGE ONE (14:50)
[2021-08-30] MEDS: ROSUVASTATIN 20 MG TABLET PO SCH (20:37)
[2021-08-31] MEDS: SUCRALFATE 1 GM TABLET PO SCH ×5 (01:13→23:14)
[2021-08-31 05:02] LABS: Basophils % 0.4 % (0.0-0.8); Eosinophils # 0.4 10*3/uL (0.0-0.87); Eosinophils % 8.6 % (0.00-10.9); Hematocrit 24.7 VOL% (35.7-47.0); Hemoglobin 8.2 GM/DL (12.0-16.0); Immature Granulocytes % 0.4 %; Immature Granulocytes Absolute 0.02 #; Lymphocytes # 0.6 10*3/uL (1.4-4.0); Lymphocytes % 13.4 % (21.3-54.2); Mean Corpuscular HGB Conc 33.2 GM/DL (32-36); Mean Corpuscular Volume 85.5 FL (87-102); Mean Platelet Volume 10.1 FL (9.6-12.0); Monocytes % 14.3 % (1.7-12.7); Neutrophils % 62.9 % (38.7-73.9); Platelet Count 132 T/CUMM (130-400); Red Blood Count 2.89 MC/CUMM (3.8-5.5); Red Cell Distribution Width 14.7 % (9.3-17.3); White Blood Count 4.8 T/CUMM (4-12)
[2021-08-31 05:20] LABS: Calcium 8.2 MG/DL (8.5-10.1); Potassium 4.5 MMOL/L (3.5-5.1)
[2021-08-31] MEDS: LEVOTHYROXINE 150 MCG TABLET PO SCH (06:15)
[2021-08-31] MEDS: DOCUSATE SODIUM 100 MG CAPSULE PO SCH ×2 (09:27→20:26)
[2021-08-31] MEDS: SEVELAMER CARBONATE 800 MG TABLET PO SCH ×3 (09:27→17:04)
[2021-08-31] MEDS: ISOSORBIDE MONONITRATE 60 MG TABLET PO SCH (09:28)
[2021-08-31] MEDS: ASPIRIN EC 81 MG TABLET PO SCH (09:28)
[2021-08-31] MEDS: carvediloL 25 MG TABLET PO SCH ×2 (09:28→20:25)
[2021-08-31] MEDS: PANTOPRAZOLE 40 MG TABLET PO SCH (09:29)
[2021-08-31] MEDS: INSULIN LISPRO 100 UNIT/ML SUBCUT SCH ×4 (10:58→21:28)
[2021-08-31] MEDS: INSULIN GLARGINE 100 UNIT/ML SUBCUT SCH (10:58)
[2021-08-31] MEDS: DOXAZOSIN 4 MG TABLET PO SCH (10:58)
[2021-08-31] MEDS: ROSUVASTATIN 20 MG TABLET PO SCH (20:25)
[2021-09-01] MEDS: LEVOTHYROXINE 150 MCG TABLET PO SCH (05:30)
[2021-09-01] MEDS: SUCRALFATE 1 GM TABLET PO SCH ×2 (05:30→15:09)
[2021-09-01 05:54] LABS: Basophils % 0.3 % (0.0-0.8); Eosinophils # 0.4 10*3/uL (0.0-0.87); Eosinophils % 6.5 % (0.00-10.9); Hematocrit 24.8 VOL% (35.7-47.0); Immature Granulocytes % 0.5 %; Immature Granulocytes Absolute 0.03 #; Lymphocytes # 1.2 10*3/uL (1.4-4.0); Mean Corpuscular HGB Conc 32.3 GM/DL (32-36); Mean Corpuscular Volume 87.3 FL (87-102); Mean Platelet Volume 10.3 FL (9.6-12.0); Neutrophils % 59.7 % (38.7-73.9); Platelet Count 132 T/CUMM (130-400); Red Blood Count 2.84 MC/CUMM (3.8-5.5); Red Cell Distribution Width 14.9 % (9.3-17.3); White Blood Count 6.2 T/CUMM (4-12)
[2021-09-01 06:14] LABS: Osmolality,Calculated 282.4 MOS/KG (273-304); Potassium 4.8 MMOL/L (3.5-5.1)
[2021-09-01] MEDS: SEVELAMER CARBONATE 800 MG TABLET PO SCH ×2 (10:02→15:09)
[2021-09-01] MEDS: DOCUSATE SODIUM 100 MG CAPSULE PO SCH (10:02)
[2021-09-01] MEDS: ISOSORBIDE MONONITRATE 60 MG TABLET PO SCH (10:02)
[2021-09-01] MEDS: DOXAZOSIN 4 MG TABLET PO SCH (10:02)
[2021-09-01] MEDS: PANTOPRAZOLE 40 MG TABLET PO SCH (10:03)
[2021-09-01] MEDS: ASPIRIN EC 81 MG TABLET PO SCH (10:03)
[2021-09-01] MEDS: INSULIN LISPRO 100 UNIT/ML SUBCUT SCH ×2 (10:03→15:09)
[2021-09-01] MEDS: carvediloL 25 MG TABLET PO SCH (10:03)
[2021-09-01] MEDS: INSULIN GLARGINE 100 UNIT/ML SUBCUT SCH (10:04)
[2021-09-01] MEDS ORDERED: POLYETHYLENE GLYCOL POWDER 17 GM PACK PO SCH (11:00)
[2021-09-01 16:15] VITALS: BP 156/47
== END 2021-09-01 16:28 | disposition home health service (06) | DRG 674 ==
LOC: EDUNIT# → EDBD → N.ED 12:33 → SUATTDRO 15:56 → N.EDINP 15:56 → N.ICU 16:30 → N.TELES 08-25 12:15
PROVIDERS: ADMIT Internal Medicine; ATTEND Internal Medicine

== ENCOUNTER 2021-10-11 14:06 | Inpatient (IN) ==
[2021-10-11 14:31] LABS: Basophils % 0.3 % (0.0-0.8); Eosinophils # 0.1 10*3/uL (0.0-0.87); Eosinophils % 0.9 % (0.00-10.9); Hematocrit 26.3 VOL% (35.7-47.0); Hemoglobin 8.4 GM/DL (12.0-16.0); Immature Granulocytes % 0.7 %; Immature Granulocytes Absolute 0.05 #; Lymphocytes # 1.5 10*3/uL (1.4-4.0); Lymphocytes % 21.1 % (21.3-54.2); Mean Corpuscular HGB Conc 31.9 GM/DL (32-36); Mean Corpuscular Volume 92.6 FL (87-102); Mean Platelet Volume 9.8 FL (9.6-12.0); Monocytes # 0.5 10*3/uL (0.11-0.8); Platelet Count 200 T/CUMM (130-400); Red Blood Count 2.84 MC/CUMM (3.8-5.5); Red Cell Distribution Width 14.7 % (9.3-17.3); White Blood Count 7.1 T/CUMM (4-12)
[2021-10-11] MEDS ORDERED: FUROSEMIDE 40 MG/4 ML VIAL IV STA (14:45)
[2021-10-11 14:52] LABS: Albumin 2.7 G/DL (3.4-5.0); Bilirubin,Total 0.6 MG/DL (0.20-1.00); Osmolality,Calculated 288.5 MOS/KG (273-304); Potassium 4.3 MMOL/L (3.5-5.1); Total Protein 6.1 G/DL (6.4-8.2)
[2021-10-11] MEDS ORDERED: MAGNESIUM SULF RIDER 4 GM/100 ML PREMIX IV PRN (15:16)
[2021-10-11] MEDS ORDERED: MAGNESIUM SULF RIDER 2 GM/50 ML PREMIX IV PRN (15:16)
[2021-10-11] MEDS ORDERED: ONDANSETRON 4 MG/2 ML VIAL IV PRN (15:16)
[2021-10-11] MEDS ORDERED: GLUCAGON 1 MG VIAL IM PRN ×2 (15:16→15:28)
[2021-10-11] MEDS ORDERED: ZALEPLON 5 MG CAPSULE PO PRN (15:16)
[2021-10-11] MEDS ORDERED: DEXTROSE 50% 25 GM/50 ML VIAL IV PRN (15:28)
[2021-10-11] MEDS ORDERED: DEXTROSE 10% 250 ML BAG IV PRN (15:56)
[2021-10-11] MEDS ORDERED: ALBUTEROL 2.5 MG/3 ML NEB RESP TX PRN (16:01)
[2021-10-11] MEDS ORDERED: NON-FORMULARY MEDICATION (Esomeprazole Magnesium 40 mg capsule,delayed release(DR/EC)) PO SCH (16:30)
[2021-10-11 16:58] LABS: Hyaline Casts,Urine 4 /LPF (0-3); Mucus,Urine Occasional /LPF (Occasional); RBC,Urine 156 /HPF (0-4)
[2021-10-11 17:00] LABS: Bilirubin,Urine Small mg/dL (Negative); Blood, Urine Large mg/dL (Negative); Glucose,Urine (UA) Negative (Negative); Ketones,Urine Negative (Negative); Nitrite,Urine Negative (Negative); Protein,Urine >=300 mg/dL (Negative); Urine Appearance Clear (Clear); Urine Color Yellow (Yellow); Urine Specific Gravity 1.025 (1.001-1.035); Urine Urobilinogen 0.2 eU/dL (<2.0); Urine pH 6.5 (4.5-8.0)
[2021-10-11] MEDS ORDERED: CYCLOBENZAPRINE 10 MG TABLET PO PRN (17:25)
[2021-10-11] MEDS: SEVELAMER CARBONATE 800 MG TABLET PO SCH (17:48)
[2021-10-11] MEDS: carvediloL 25 MG TABLET PO SCH (17:48)
[2021-10-11] MEDS: INSULIN REGULAR 100 UNIT/ML SUBCUT SCH ×2 (17:48→21:55)
[2021-10-11] MEDS: SUCRALFATE 1 GM TABLET PO SCH ×2 (17:48→21:53)
[2021-10-11] MEDS ORDERED: Budesonide-Glycopyr-Formoterol [Breztri Aerosphere] 160-9-4.8 mc INH PRN (21:00)
[2021-10-11] MEDS ORDERED: ENOXAPARIN 100 MG/ML SYRINGE SUBCUT SCH (21:00)
[2021-10-11] MEDS: ROSUVASTATIN 20 MG TABLET PO SCH (21:53)
[2021-10-11] MEDS: DOXAZOSIN 1 MG TABLET PO SCH (21:54)
[2021-10-11] MEDS: ISOSORBIDE MONONITRATE 60 MG TABLET PO SCH (21:54)
[2021-10-11] MEDS: DOCUSATE SODIUM 100 MG CAPSULE PO SCH (21:54)
[2021-10-12 06:54] LABS: Basophils % 0.4 % (0.0-0.8); Eosinophils # 0.1 10*3/uL (0.0-0.87); Eosinophils % 2.2 % (0.00-10.9); Hematocrit 23.5 VOL% (35.7-47.0); Hemoglobin 7.6 GM/DL (12.0-16.0); Immature Granulocytes % 0.5 %; Immature Granulocytes Absolute 0.03 #; Lymphocytes % 18.1 % (21.3-54.2); Mean Corpuscular HGB Conc 32.3 GM/DL (32-36); Mean Corpuscular Volume 92.5 FL (87-102); Monocytes # 0.4 10*3/uL (0.11-0.8); Monocytes % 7.8 % (1.7-12.7); Platelet Count 183 T/CUMM (130-400); Red Blood Count 2.54 MC/CUMM (3.8-5.5); Red Cell Distribution Width 14.6 % (9.3-17.3); White Blood Count 5.5 T/CUMM (4-12)
[2021-10-12 07:14] LABS: Albumin 2.3 G/DL (3.4-5.0); Bilirubin,Total 0.4 MG/DL (0.20-1.00); Osmolality,Calculated 290.5 MOS/KG (273-304); Potassium 3.9 MMOL/L (3.5-5.1)
[2021-10-12] MEDS: SUCRALFATE 1 GM TABLET PO SCH ×3 (08:57→16:56)
[2021-10-12] MEDS: DOXAZOSIN 1 MG TABLET PO SCH (08:57)
[2021-10-12] MEDS: SEVELAMER CARBONATE 800 MG TABLET PO SCH ×3 (08:58→16:56)
[2021-10-12] MEDS: PANTOPRAZOLE 40 MG TABLET PO SCH (08:58)
[2021-10-12] MEDS: ISOSORBIDE MONONITRATE 60 MG TABLET PO SCH (08:58)
[2021-10-12] MEDS: carvediloL 25 MG TABLET PO SCH ×2 (08:58→16:56)
[2021-10-12] MEDS: DOCUSATE SODIUM 100 MG CAPSULE PO SCH (08:58)
[2021-10-12] MEDS: INSULIN REGULAR 100 UNIT/ML SUBCUT SCH ×4 (08:59→21:00)
[2021-10-12] MEDS: ASPIRIN EC 81 MG TABLET PO SCH (08:59)
[2021-10-12] MEDS: LEVOTHYROXINE 200 MCG TABLET PO SCH (08:59)
[2021-10-12] MEDS: FUROSEMIDE 40 MG/4 ML VIAL IV SCH ×2 (08:59→15:41)
[2021-10-12] MEDS: MONTELUKAST 10 MG TABLET PO SCH (08:59)
[2021-10-12] MEDS ORDERED: ENOXAPARIN 30 MG/0.3 ML SYRINGE SUBCUT SCH (09:00)
[2021-10-12 11:11] LABS: % Iron Saturation 20.1 % (18-50)
[2021-10-12] MEDS: CHOLECALCIFEROL 1,000 UNIT TABLET PO SCH (15:41)
[2021-10-13] MEDS: DOXAZOSIN 1 MG TABLET PO SCH ×3 (00:40→20:45)
[2021-10-13] MEDS: SUCRALFATE 1 GM TABLET PO SCH ×5 (00:40→20:46)
[2021-10-13] MEDS: ZINC OXIDE 16% PASTE 57 GM TUBE TOP SCH ×3 (00:40→20:46)
[2021-10-13] MEDS: FERROUS SULFATE 325 MG TABLET PO SCH ×3 (00:41→20:46)
[2021-10-13] MEDS: ROSUVASTATIN 20 MG TABLET PO SCH ×2 (00:41→20:46)
[2021-10-13] MEDS: DOCUSATE SODIUM 100 MG CAPSULE PO SCH ×3 (00:41→20:45)
[2021-10-13] MEDS: ENOXAPARIN 30 MG/0.3 ML SYRINGE SUBCUT SCH ×2 (00:43→20:46)
[2021-10-13] MEDS: ISOSORBIDE MONONITRATE 60 MG TABLET PO SCH ×3 (00:43→20:46)
[2021-10-13] MEDS: LEVOTHYROXINE 200 MCG TABLET PO SCH (06:00)
[2021-10-13] MEDS: INSULIN REGULAR 100 UNIT/ML SUBCUT SCH ×4 (08:05→20:47)
[2021-10-13 08:27] LABS: Basophils % 0.2 % (0.0-0.8); Eosinophils # 0.2 10*3/uL (0.0-0.87); Eosinophils % 3.9 % (0.00-10.9); Hematocrit 22.1 VOL% (35.7-47.0); Hemoglobin 7.1 GM/DL (12.0-16.0); Immature Granulocytes % 0.4 %; Immature Granulocytes Absolute 0.02 #; Lymphocytes # 0.9 10*3/uL (1.4-4.0); Lymphocytes % 19.7 % (21.3-54.2); Mean Corpuscular HGB Conc 32.1 GM/DL (32-36); Mean Corpuscular Volume 93.2 FL (87-102); Monocytes # 0.4 10*3/uL (0.11-0.8); Monocytes % 7.8 % (1.7-12.7); Platelet Count 150 T/CUMM (130-400); Red Blood Count 2.37 MC/CUMM (3.8-5.5); Red Cell Distribution Width 14.6 % (9.3-17.3); White Blood Count 4.6 T/CUMM (4-12)
[2021-10-13 08:46] LABS: Calcium 8.2 MG/DL (8.5-10.1); Potassium 3.9 MMOL/L (3.5-5.1)
[2021-10-13] MEDS: FUROSEMIDE 40 MG/4 ML VIAL IV SCH ×2 (08:58→16:08)
[2021-10-13] MEDS: POLYETHYLENE GLYCOL POWDER 17 GM PACK PO SCH (09:36)
[2021-10-13] MEDS: CHOLECALCIFEROL 1,000 UNIT TABLET PO SCH (09:37)
[2021-10-13] MEDS: ASPIRIN EC 81 MG TABLET PO SCH (09:37)
[2021-10-13] MEDS: MONTELUKAST 10 MG TABLET PO SCH (09:38)
[2021-10-13] MEDS: SEVELAMER CARBONATE 800 MG TABLET PO SCH ×3 (09:39→16:15)
[2021-10-13] MEDS: carvediloL 25 MG TABLET PO SCH ×2 (09:39→16:15)
[2021-10-13] MEDS: PANTOPRAZOLE 40 MG TABLET PO SCH (09:39)
[2021-10-14 04:43] LABS: Basophils % 0.3 % (0.0-0.8); Eosinophils % 0.5 % (0.00-10.9); Hematocrit 20.7 VOL% (35.7-47.0); Hemoglobin 6.7 GM/DL (12.0-16.0); Immature Granulocytes % 0.5 %; Immature Granulocytes Absolute 0.03 #; Lymphocytes # 1.2 10*3/uL (1.4-4.0); Lymphocytes % 18.2 % (21.3-54.2); Mean Corpuscular HGB Conc 32.4 GM/DL (32-36); Mean Corpuscular Volume 92.4 FL (87-102); Mean Platelet Volume 10.7 FL (9.6-12.0); Monocytes # 0.6 10*3/uL (0.11-0.8); Monocytes % 9.2 % (1.7-12.7); Neutrophils % 71.3 % (38.7-73.9); Platelet Count 137 T/CUMM (130-400); Red Blood Count 2.24 MC/CUMM (3.8-5.5); Red Cell Distribution Width 14.3 % (9.3-17.3); White Blood Count 6.6 T/CUMM (4-12)
[2021-10-14 05:09] LABS: Calcium 8.4 MG/DL (8.5-10.1); Osmolality,Calculated 284.4 MOS/KG (273-304); Potassium 4.1 MMOL/L (3.5-5.1)
[2021-10-14] MEDS: LEVOTHYROXINE 200 MCG TABLET PO SCH (05:48)
[2021-10-14] MEDS ORDERED: SODIUM CHLORIDE 0.9% 1,000 ML IV PRN (08:13)
[2021-10-14] MEDS: FUROSEMIDE 40 MG/4 ML VIAL IV SCH ×2 (09:28→18:41)
[2021-10-14] MEDS: DOXAZOSIN 1 MG TABLET PO SCH ×2 (09:48→20:54)
[2021-10-14] MEDS: DOCUSATE SODIUM 100 MG CAPSULE PO SCH ×2 (09:49→20:53)
[2021-10-14] MEDS: MONTELUKAST 10 MG TABLET PO SCH (09:49)
[2021-10-14] MEDS: FERROUS SULFATE 325 MG TABLET PO SCH ×2 (09:50→20:54)
[2021-10-14] MEDS: SEVELAMER CARBONATE 800 MG TABLET PO SCH ×3 (09:50→17:46)
[2021-10-14] MEDS: ASPIRIN EC 81 MG TABLET PO SCH (09:50)
[2021-10-14] MEDS: CHOLECALCIFEROL 1,000 UNIT TABLET PO SCH (09:50)
[2021-10-14] MEDS: PANTOPRAZOLE 40 MG TABLET PO SCH (09:50)
[2021-10-14] MEDS: SUCRALFATE 1 GM TABLET PO SCH ×4 (09:50→20:53)
[2021-10-14] MEDS: ISOSORBIDE MONONITRATE 60 MG TABLET PO SCH ×2 (09:50→20:54)
[2021-10-14] MEDS: INSULIN REGULAR 100 UNIT/ML SUBCUT SCH ×4 (09:51→20:54)
[2021-10-14] MEDS: carvediloL 25 MG TABLET PO SCH ×2 (09:51→17:46)
[2021-10-14] MEDS: ZINC OXIDE 16% PASTE 57 GM TUBE TOP SCH ×2 (09:52→20:55)
[2021-10-14] MEDS ORDERED: HEPARIN 10,000 UNIT/10 ML VIAL IV PRN (15:39)
[2021-10-14 16:17] LABS: Hepatitis B Core IgM Quant 0.14 Index; Hepatitis B Surface Ag Quant < 0.10 Index; Hepatitis B Surface Ag Result Non-Reactive (NonReactive); Hepatitis C Virus Ab Quant 0.05 Index; Hepatitis C Virus Ab Result Non-Reactive (NonReactive)
[2021-10-14 19:20] LABS: Hematocrit 27.2 VOL% (35.7-47.0); Hemoglobin 8.7 GM/DL (12.0-16.0)
[2021-10-14] MEDS: ROSUVASTATIN 20 MG TABLET PO SCH (20:54)
[2021-10-14] MEDS: ACETAMINOPHEN 325 MG TABLET PO PRN (20:54)
[2021-10-14] MEDS: ENOXAPARIN 30 MG/0.3 ML SYRINGE SUBCUT SCH (20:55)
[2021-10-15 05:03] LABS: Basophils % 0.2 % (0.0-0.8); Eosinophils # 0.1 10*3/uL (0.0-0.87); Eosinophils % 0.9 % (0.00-10.9); Hematocrit 25.3 VOL% (35.7-47.0); Hemoglobin 8.2 GM/DL (12.0-16.0); Immature Granulocytes % 0.6 %; Immature Granulocytes Absolute 0.04 #; Lymphocytes # 0.9 10*3/uL (1.4-4.0); Lymphocytes % 13.5 % (21.3-54.2); Mean Corpuscular HGB Conc 32.4 GM/DL (32-36); Mean Corpuscular Volume 91.7 FL (87-102); Mean Platelet Volume 10.7 FL (9.6-12.0); Monocytes # 0.5 10*3/uL (0.11-0.8); Monocytes % 8.1 % (1.7-12.7); Neutrophils % 76.7 % (38.7-73.9); Platelet Count 150 T/CUMM (130-400); Red Blood Count 2.76 MC/CUMM (3.8-5.5); Red Cell Distribution Width 15.7 % (9.3-17.3); White Blood Count 6.5 T/CUMM (4-12)
[2021-10-15 05:19] LABS: Calcium 8.6 MG/DL (8.5-10.1); Osmolality,Calculated 281.1 MOS/KG (273-304); Potassium 4.1 MMOL/L (3.5-5.1)
[2021-10-15] MEDS: LEVOTHYROXINE 200 MCG TABLET PO SCH (06:11)
[2021-10-15 07:00] LABS: Risk Ratio 2.83; VLDL Cholesterol 34.4 MG/DL
[2021-10-15] MEDS: INSULIN REGULAR 100 UNIT/ML SUBCUT SCH ×4 (08:05→21:35)
[2021-10-15] MEDS: FUROSEMIDE 40 MG/4 ML VIAL IV SCH ×2 (09:26→17:30)
[2021-10-15] MEDS: POLYETHYLENE GLYCOL POWDER 17 GM PACK PO SCH (09:32)
[2021-10-15] MEDS: DOXAZOSIN 1 MG TABLET PO SCH ×2 (09:33→21:35)
[2021-10-15] MEDS: DOCUSATE SODIUM 100 MG CAPSULE PO SCH ×2 (09:34→21:36)
[2021-10-15] MEDS: CHOLECALCIFEROL 1,000 UNIT TABLET PO SCH (09:36)
[2021-10-15] MEDS: SUCRALFATE 1 GM TABLET PO SCH ×4 (09:36→21:36)
[2021-10-15] MEDS: FERROUS SULFATE 325 MG TABLET PO SCH ×2 (09:36→21:36)
[2021-10-15] MEDS: MONTELUKAST 10 MG TABLET PO SCH (09:37)
[2021-10-15] MEDS: PANTOPRAZOLE 40 MG TABLET PO SCH (09:41)
[2021-10-15] MEDS: SEVELAMER CARBONATE 800 MG TABLET PO SCH ×3 (09:41→17:26)
[2021-10-15] MEDS: ISOSORBIDE MONONITRATE 60 MG TABLET PO SCH ×2 (09:41→21:36)
[2021-10-15] MEDS: carvediloL 25 MG TABLET PO SCH ×2 (09:41→17:56)
[2021-10-15] MEDS: ASPIRIN EC 81 MG TABLET PO SCH (09:41)
[2021-10-15] MEDS: ZINC OXIDE 16% PASTE 57 GM TUBE TOP SCH ×2 (09:47→21:36)
[2021-10-15] MEDS: ENOXAPARIN 30 MG/0.3 ML SYRINGE SUBCUT SCH (21:35)
[2021-10-15] MEDS: ROSUVASTATIN 20 MG TABLET PO SCH (21:36)
[2021-10-16 04:53] LABS: Basophils % 0.3 % (0.0-0.8); Eosinophils # 0.2 10*3/uL (0.0-0.87); Eosinophils % 3.5 % (0.00-10.9); Hematocrit 25.9 VOL% (35.7-47.0); Hemoglobin 8.3 GM/DL (12.0-16.0); Immature Granulocytes % 0.5 %; Immature Granulocytes Absolute 0.03 #; Lymphocytes # 0.7 10*3/uL (1.4-4.0); Lymphocytes % 12.8 % (21.3-54.2); Mean Corpuscular Volume 92.5 FL (87-102); Mean Platelet Volume 10.5 FL (9.6-12.0); Monocytes # 0.4 10*3/uL (0.11-0.8); Monocytes % 7.1 % (1.7-12.7); Neutrophils % 75.8 % (38.7-73.9); Platelet Count 174 T/CUMM (130-400); Red Cell Distribution Width 15.4 % (9.3-17.3); White Blood Count 5.8 T/CUMM (4-12)
[2021-10-16 05:19] LABS: Calcium 8.7 MG/DL (8.5-10.1); Osmolality,Calculated 281.2 MOS/KG (273-304); Potassium 4.1 MMOL/L (3.5-5.1)
[2021-10-16] MEDS: LEVOTHYROXINE 200 MCG TABLET PO SCH (05:25)
[2021-10-16] MEDS: FUROSEMIDE 40 MG/4 ML VIAL IV SCH ×2 (09:17→15:51)
[2021-10-16] MEDS: INSULIN REGULAR 100 UNIT/ML SUBCUT SCH ×4 (09:17→21:25)
[2021-10-16] MEDS: DOCUSATE SODIUM 100 MG CAPSULE PO SCH ×2 (09:17→21:23)
[2021-10-16] MEDS: ASPIRIN EC 81 MG TABLET PO SCH (09:18)
[2021-10-16] MEDS: DOXAZOSIN 1 MG TABLET PO SCH ×2 (09:18→21:29)
[2021-10-16] MEDS: FERROUS SULFATE 325 MG TABLET PO SCH ×2 (09:18→21:24)
[2021-10-16] MEDS: SEVELAMER CARBONATE 800 MG TABLET PO SCH ×3 (09:18→16:59)
[2021-10-16] MEDS: CHOLECALCIFEROL 1,000 UNIT TABLET PO SCH (09:18)
[2021-10-16] MEDS: carvediloL 25 MG TABLET PO SCH ×2 (09:18→16:59)
[2021-10-16] MEDS: MONTELUKAST 10 MG TABLET PO SCH (09:18)
[2021-10-16] MEDS: PANTOPRAZOLE 40 MG TABLET PO SCH (09:18)
[2021-10-16] MEDS: ZINC OXIDE 16% PASTE 57 GM TUBE TOP SCH ×2 (09:19→21:24)
[2021-10-16] MEDS: ISOSORBIDE MONONITRATE 60 MG TABLET PO SCH ×2 (09:19→21:24)
[2021-10-16] MEDS: SUCRALFATE 1 GM TABLET PO SCH ×4 (09:19→21:24)
[2021-10-16 12:06] LABS: Hepatitis B Surface Ag Quant < 0.10 Index; Hepatitis B Surface Ag Result Non-Reactive (NonReactive)
[2021-10-16] MEDS ORDERED: HEPARIN 10,000 UNIT/10 ML VIAL IV PRN (15:30)
[2021-10-16] MEDS: ROSUVASTATIN 20 MG TABLET PO SCH (21:23)
[2021-10-16] MEDS: ENOXAPARIN 30 MG/0.3 ML SYRINGE SUBCUT SCH (21:24)
[2021-10-17] MEDS: LEVOTHYROXINE 200 MCG TABLET PO SCH (06:35)
[2021-10-17] MEDS: INSULIN REGULAR 100 UNIT/ML SUBCUT SCH ×4 (08:53→21:49)
[2021-10-17] MEDS: ASPIRIN EC 81 MG TABLET PO SCH (09:04)
[2021-10-17] MEDS: carvediloL 25 MG TABLET PO SCH ×2 (09:04→17:40)
[2021-10-17] MEDS: MONTELUKAST 10 MG TABLET PO SCH (09:04)
[2021-10-17] MEDS: FERROUS SULFATE 325 MG TABLET PO SCH ×2 (09:04→21:47)
[2021-10-17] MEDS: SEVELAMER CARBONATE 800 MG TABLET PO SCH ×3 (09:04→17:40)
[2021-10-17] MEDS: DOXAZOSIN 1 MG TABLET PO SCH ×2 (09:04→21:48)
[2021-10-17] MEDS: DOCUSATE SODIUM 100 MG CAPSULE PO SCH ×2 (09:04→21:46)
[2021-10-17] MEDS: POLYETHYLENE GLYCOL POWDER 17 GM PACK PO SCH (09:05)
[2021-10-17] MEDS: ISOSORBIDE MONONITRATE 60 MG TABLET PO SCH ×2 (09:05→21:47)
[2021-10-17] MEDS: FUROSEMIDE 40 MG/4 ML VIAL IV SCH ×2 (09:05→17:40)
[2021-10-17] MEDS: PANTOPRAZOLE 40 MG TABLET PO SCH (09:05)
[2021-10-17] MEDS: CHOLECALCIFEROL 1,000 UNIT TABLET PO SCH (09:05)
[2021-10-17] MEDS: SUCRALFATE 1 GM TABLET PO SCH ×4 (09:05→21:47)
[2021-10-17] MEDS: ZINC OXIDE 16% PASTE 57 GM TUBE TOP SCH ×2 (09:06→21:48)
[2021-10-17] MEDS ORDERED: SKIN HEALING OINT (AQUAPHOR) 50 GM TUBE TOP PRN (13:43)
[2021-10-17] MEDS: ROSUVASTATIN 20 MG TABLET PO SCH (21:46)
[2021-10-17] MEDS: ENOXAPARIN 30 MG/0.3 ML SYRINGE SUBCUT SCH (21:48)
[2021-10-18] MEDS: LEVOTHYROXINE 200 MCG TABLET PO SCH (06:16)
[2021-10-18] MEDS: ZINC OXIDE 16% PASTE 57 GM TUBE TOP SCH ×2 (09:05→21:51)
[2021-10-18] MEDS: INSULIN REGULAR 100 UNIT/ML SUBCUT SCH ×4 (09:06→22:03)
[2021-10-18] MEDS: DOCUSATE SODIUM 100 MG CAPSULE PO SCH ×2 (09:06→21:50)
[2021-10-18] MEDS: carvediloL 25 MG TABLET PO SCH ×2 (09:06→17:51)
[2021-10-18] MEDS: FUROSEMIDE 40 MG/4 ML VIAL IV SCH ×2 (09:07→16:05)
[2021-10-18] MEDS: FERROUS SULFATE 325 MG TABLET PO SCH ×2 (09:07→21:50)
[2021-10-18] MEDS: MONTELUKAST 10 MG TABLET PO SCH (09:08)
[2021-10-18] MEDS: SUCRALFATE 1 GM TABLET PO SCH ×4 (09:08→21:50)
[2021-10-18] MEDS: PANTOPRAZOLE 40 MG TABLET PO SCH (09:08)
[2021-10-18] MEDS: CHOLECALCIFEROL 1,000 UNIT TABLET PO SCH (09:08)
[2021-10-18] MEDS: ASPIRIN EC 81 MG TABLET PO SCH (09:08)
[2021-10-18] MEDS: ISOSORBIDE MONONITRATE 60 MG TABLET PO SCH ×2 (09:09→21:50)
[2021-10-18] MEDS: SEVELAMER CARBONATE 800 MG TABLET PO SCH ×3 (09:19→17:51)
[2021-10-18] MEDS: DOXAZOSIN 1 MG TABLET PO SCH ×2 (09:19→21:50)
[2021-10-18] MEDS: ENOXAPARIN 30 MG/0.3 ML SYRINGE SUBCUT SCH (21:50)
[2021-10-18] MEDS: ROSUVASTATIN 20 MG TABLET PO SCH (21:50)
[2021-10-19] MEDS: LEVOTHYROXINE 200 MCG TABLET PO SCH (06:11)
[2021-10-19] MEDS: INSULIN REGULAR 100 UNIT/ML SUBCUT SCH ×4 (07:40→21:08)
[2021-10-19] MEDS: FUROSEMIDE 40 MG/4 ML VIAL IV SCH ×2 (07:44→19:42)
[2021-10-19] MEDS: carvediloL 25 MG TABLET PO SCH ×2 (07:44→19:43)
[2021-10-19] MEDS: SEVELAMER CARBONATE 800 MG TABLET PO SCH ×3 (07:45→19:43)
[2021-10-19] MEDS: POLYETHYLENE GLYCOL POWDER 17 GM PACK PO SCH (09:33)
[2021-10-19] MEDS: DOCUSATE SODIUM 100 MG CAPSULE PO SCH ×2 (09:33→21:07)
[2021-10-19] MEDS: MONTELUKAST 10 MG TABLET PO SCH (09:34)
[2021-10-19] MEDS: PANTOPRAZOLE 40 MG TABLET PO SCH (09:34)
[2021-10-19] MEDS: CHOLECALCIFEROL 1,000 UNIT TABLET PO SCH (09:34)
[2021-10-19] MEDS: ASPIRIN EC 81 MG TABLET PO SCH (09:34)
[2021-10-19] MEDS: DOXAZOSIN 1 MG TABLET PO SCH ×2 (09:34→21:06)
[2021-10-19] MEDS: ISOSORBIDE MONONITRATE 60 MG TABLET PO SCH ×2 (09:35→21:07)
[2021-10-19] MEDS: FERROUS SULFATE 325 MG TABLET PO SCH ×2 (09:35→21:07)
[2021-10-19] MEDS: ZINC OXIDE 16% PASTE 57 GM TUBE TOP SCH ×2 (09:35→21:08)
[2021-10-19] MEDS: SUCRALFATE 1 GM TABLET PO SCH ×4 (09:35→21:07)
[2021-10-19] MEDS: LORazepam 2 MG/1 ML VIAL IV PRN (10:00)
[2021-10-19] MEDS: ENOXAPARIN 30 MG/0.3 ML SYRINGE SUBCUT SCH (21:06)
[2021-10-19] MEDS: ROSUVASTATIN 20 MG TABLET PO SCH (21:08)
[2021-10-20] MEDS: LEVOTHYROXINE 200 MCG TABLET PO SCH (05:34)
[2021-10-20] MEDS: INSULIN REGULAR 100 UNIT/ML SUBCUT SCH ×4 (09:00→21:51)
[2021-10-20] MEDS: FUROSEMIDE 40 MG/4 ML VIAL IV SCH ×2 (09:01→16:32)
[2021-10-20] MEDS: PANTOPRAZOLE 40 MG TABLET PO SCH (09:01)
[2021-10-20] MEDS: DOCUSATE SODIUM 100 MG CAPSULE PO SCH ×2 (09:01→22:52)
[2021-10-20] MEDS: carvediloL 25 MG TABLET PO SCH ×2 (09:02→16:38)
[2021-10-20] MEDS: ASPIRIN EC 81 MG TABLET PO SCH (09:02)
[2021-10-20] MEDS: CHOLECALCIFEROL 1,000 UNIT TABLET PO SCH (09:02)
[2021-10-20] MEDS: ISOSORBIDE MONONITRATE 60 MG TABLET PO SCH ×2 (09:02→21:53)
[2021-10-20] MEDS: SEVELAMER CARBONATE 800 MG TABLET PO SCH ×3 (09:02→16:43)
[2021-10-20] MEDS: DOXAZOSIN 1 MG TABLET PO SCH ×2 (09:02→22:52)
[2021-10-20] MEDS: FERROUS SULFATE 325 MG TABLET PO SCH ×2 (09:03→22:52)
[2021-10-20] MEDS: SUCRALFATE 1 GM TABLET PO SCH ×5 (09:03→22:53)
[2021-10-20] MEDS: MONTELUKAST 10 MG TABLET PO SCH (09:03)
[2021-10-20] MEDS: ZINC OXIDE 16% PASTE 57 GM TUBE TOP SCH (11:54)
[2021-10-20] MEDS: ACETAMINOPHEN 500 MG TABLET PO SCH (13:19)
[2021-10-20] MEDS: diphenhydrAMINE CAP 50 MG CAPSULE PO SCH (13:19)
[2021-10-20] MEDS: IMMUNE GLOBULIN 10% 20 GM, IMMUNE GLOBULIN 10% 10 GM, IMMUNE GLOBULIN 10% 5 GM in PREMI... IV SCH (14:00)
[2021-10-20] MEDS: DESITIN 4OZ/NYSTATIN 15 GRAM MIXTURE PASTE TOP SCH ×2 (16:43→23:00)
[2021-10-20] MEDS: ROSUVASTATIN 20 MG TABLET PO SCH (21:51)
[2021-10-20] MEDS: ENOXAPARIN 30 MG/0.3 ML SYRINGE SUBCUT SCH (23:00)
[2021-10-21] MEDS: LEVOTHYROXINE 200 MCG TABLET PO SCH (05:49)
[2021-10-21] MEDS: INSULIN REGULAR 100 UNIT/ML SUBCUT SCH ×4 (10:54→22:01)
[2021-10-21] MEDS: SEVELAMER CARBONATE 800 MG TABLET PO SCH ×3 (12:50→17:34)
[2021-10-21] MEDS: PANTOPRAZOLE 40 MG TABLET PO SCH (13:16)
[2021-10-21] MEDS: CHOLECALCIFEROL 1,000 UNIT TABLET PO SCH (13:17)
[2021-10-21] MEDS: DOXAZOSIN 1 MG TABLET PO SCH ×2 (13:18→22:01)
[2021-10-21] MEDS: DOCUSATE SODIUM 100 MG CAPSULE PO SCH ×2 (13:18→21:59)
[2021-10-21] MEDS: carvediloL 25 MG TABLET PO SCH ×2 (13:18→17:34)
[2021-10-21] MEDS: POLYETHYLENE GLYCOL POWDER 17 GM PACK PO SCH (13:18)
[2021-10-21] MEDS: MONTELUKAST 10 MG TABLET PO SCH (13:18)
[2021-10-21] MEDS: ISOSORBIDE MONONITRATE 60 MG TABLET PO SCH ×2 (13:18→22:01)
[2021-10-21] MEDS: FERROUS SULFATE 325 MG TABLET PO SCH ×2 (13:18→22:00)
[2021-10-21] MEDS: DESITIN 4OZ/NYSTATIN 15 GRAM MIXTURE PASTE TOP SCH ×2 (13:22→22:01)
[2021-10-21] MEDS: SUCRALFATE 1 GM TABLET PO SCH ×4 (13:31→22:00)
[2021-10-21] MEDS: ASPIRIN EC 81 MG TABLET PO SCH (13:31)
[2021-10-21] MEDS: ACETAMINOPHEN 500 MG TABLET PO SCH ×2 (13:51→22:00)
[2021-10-21] MEDS: IMMUNE GLOBULIN 10% 20 GM, IMMUNE GLOBULIN 10% 10 GM, IMMUNE GLOBULIN 10% 5 GM in PREMI... IV SCH ×2 (13:52→22:39)
[2021-10-21] MEDS: diphenhydrAMINE CAP 50 MG CAPSULE PO SCH ×2 (13:52→22:00)
[2021-10-21] MEDS: ROSUVASTATIN 20 MG TABLET PO SCH (21:59)
[2021-10-21] MEDS: ENOXAPARIN 30 MG/0.3 ML SYRINGE SUBCUT SCH (22:01)
[2021-10-22] MEDS: LEVOTHYROXINE 200 MCG TABLET PO SCH (05:55)
[2021-10-22] MEDS: SUCRALFATE 1 GM TABLET PO SCH ×4 (10:36→21:38)
[2021-10-22] MEDS: MONTELUKAST 10 MG TABLET PO SCH (10:36)
[2021-10-22] MEDS: FERROUS SULFATE 325 MG TABLET PO SCH ×2 (10:36→21:38)
[2021-10-22] MEDS: DOCUSATE SODIUM 100 MG CAPSULE PO SCH ×2 (10:36→21:40)
[2021-10-22] MEDS: PANTOPRAZOLE 40 MG TABLET PO SCH (10:37)
[2021-10-22] MEDS: carvediloL 25 MG TABLET PO SCH ×2 (10:37→16:53)
[2021-10-22] MEDS: CHOLECALCIFEROL 1,000 UNIT TABLET PO SCH (10:37)
[2021-10-22] MEDS: INSULIN REGULAR 100 UNIT/ML SUBCUT SCH ×4 (10:37→21:47)
[2021-10-22] MEDS: ASPIRIN EC 81 MG TABLET PO SCH (10:37)
[2021-10-22] MEDS: ISOSORBIDE MONONITRATE 60 MG TABLET PO SCH ×2 (10:37→21:38)
[2021-10-22] MEDS: SEVELAMER CARBONATE 800 MG TABLET PO SCH ×3 (10:37→16:53)
[2021-10-22] MEDS: DOXAZOSIN 1 MG TABLET PO SCH ×2 (10:43→21:37)
[2021-10-22] MEDS: DESITIN 4OZ/NYSTATIN 15 GRAM MIXTURE PASTE TOP SCH ×2 (10:44→21:40)
[2021-10-22] MEDS: diphenhydrAMINE CAP 50 MG CAPSULE PO SCH (21:37)
[2021-10-22] MEDS: ACETAMINOPHEN 500 MG TABLET PO SCH (21:38)
[2021-10-22] MEDS: ROSUVASTATIN 20 MG TABLET PO SCH (21:38)
[2021-10-22] MEDS: IMMUNE GLOBULIN 10% 20 GM, IMMUNE GLOBULIN 10% 10 GM, IMMUNE GLOBULIN 10% 5 GM in PREMI... IV SCH (21:43)
[2021-10-22] MEDS: ENOXAPARIN 30 MG/0.3 ML SYRINGE SUBCUT SCH (21:46)
[2021-10-23 05:33] LABS: Basophils % 0.5 % (0.0-0.8); Eosinophils # 0.1 10*3/uL (0.0-0.87); Eosinophils % 3.4 % (0.00-10.9); Hematocrit 25.3 VOL% (35.7-47.0); Hemoglobin 8.2 GM/DL (12.0-16.0); Immature Granulocytes % 3.4 %; Immature Granulocytes Absolute 0.14 #; Lymphocytes # 0.9 10*3/uL (1.4-4.0); Lymphocytes % 22.9 % (21.3-54.2); Mean Corpuscular HGB Conc 32.4 GM/DL (32-36); Mean Corpuscular Volume 91.7 FL (87-102); Mean Platelet Volume 9.7 FL (9.6-12.0); Monocytes # 0.3 10*3/uL (0.11-0.8); Monocytes % 8.4 % (1.7-12.7); Neutrophils % 61.4 % (38.7-73.9); Platelet Count 222 T/CUMM (130-400); Red Blood Count 2.76 MC/CUMM (3.8-5.5); Red Cell Distribution Width 14.3 % (9.3-17.3); White Blood Count 4.1 T/CUMM (4-12)
[2021-10-23 05:51] LABS: Albumin 1.8 G/DL (3.4-5.0); Calcium 8.7 MG/DL (8.5-10.1); Osmolality,Calculated 283.5 MOS/KG (273-304); Phosphorous 3.7 MG/DL (2.5-4.9); Potassium 4.2 MMOL/L (3.5-5.1)
[2021-10-23] MEDS: LEVOTHYROXINE 200 MCG TABLET PO SCH (05:55)
[2021-10-23] MEDS: INSULIN REGULAR 100 UNIT/ML SUBCUT SCH ×5 (09:31→20:18)
[2021-10-23] MEDS: PANTOPRAZOLE 40 MG TABLET PO SCH (09:32)
[2021-10-23] MEDS: DOCUSATE SODIUM 100 MG CAPSULE PO SCH ×2 (09:32→20:17)
[2021-10-23] MEDS: CHOLECALCIFEROL 1,000 UNIT TABLET PO SCH (09:32)
[2021-10-23] MEDS: ISOSORBIDE MONONITRATE 60 MG TABLET PO SCH ×2 (09:32→20:17)
[2021-10-23] MEDS: MONTELUKAST 10 MG TABLET PO SCH (09:32)
[2021-10-23] MEDS: ASPIRIN EC 81 MG TABLET PO SCH (09:32)
[2021-10-23] MEDS: carvediloL 25 MG TABLET PO SCH ×2 (09:32→16:43)
[2021-10-23] MEDS: DOXAZOSIN 1 MG TABLET PO SCH ×2 (09:32→20:18)
[2021-10-23] MEDS: SUCRALFATE 1 GM TABLET PO SCH ×4 (09:32→20:17)
[2021-10-23] MEDS: FERROUS SULFATE 325 MG TABLET PO SCH ×2 (09:32→20:18)
[2021-10-23] MEDS: DESITIN 4OZ/NYSTATIN 15 GRAM MIXTURE PASTE TOP SCH ×2 (09:33→20:21)
[2021-10-23] MEDS: POLYETHYLENE GLYCOL POWDER 17 GM PACK PO SCH (09:33)
[2021-10-23] MEDS: SEVELAMER CARBONATE 800 MG TABLET PO SCH ×3 (09:33→16:43)
[2021-10-23] MEDS: INSULIN GLARGINE 100 UNIT/ML SUBCUT SCH (14:40)
[2021-10-23] MEDS: diphenhydrAMINE CAP 50 MG CAPSULE PO SCH (20:18)
[2021-10-23] MEDS: ROSUVASTATIN 20 MG TABLET PO SCH (20:18)
[2021-10-23] MEDS: ENOXAPARIN 30 MG/0.3 ML SYRINGE SUBCUT SCH (20:18)
[2021-10-23] MEDS: ACETAMINOPHEN 500 MG TABLET PO SCH (20:18)
[2021-10-23] MEDS: IMMUNE GLOBULIN 10% 20 GM, IMMUNE GLOBULIN 10% 10 GM, IMMUNE GLOBULIN 10% 5 GM in PREMI... IV SCH (21:01)
[2021-10-24 04:36] LABS: Basophils % 0.3 % (0.0-0.8); Eosinophils # 0.1 10*3/uL (0.0-0.87); Eosinophils % 2.4 % (0.00-10.9); Hemoglobin 8.6 GM/DL (12.0-16.0); Immature Granulocytes % 3.1 %; Immature Granulocytes Absolute 0.18 #; Lymphocytes # 1.4 10*3/uL (1.4-4.0); Lymphocytes % 24.1 % (21.3-54.2); Mean Corpuscular HGB Conc 33.1 GM/DL (32-36); Mean Platelet Volume 9.5 FL (9.6-12.0); Monocytes # 0.5 10*3/uL (0.11-0.8); Monocytes % 8.2 % (1.7-12.7); Neutrophils % 61.9 % (38.7-73.9); Platelet Count 244 T/CUMM (130-400); Red Blood Count 2.92 MC/CUMM (3.8-5.5); Red Cell Distribution Width 13.9 % (9.3-17.3); White Blood Count 5.9 T/CUMM (4-12)
[2021-10-24 04:56] LABS: Calcium 9.4 MG/DL (8.5-10.1); Osmolality,Calculated 280.7 MOS/KG (273-304)
[2021-10-24] MEDS: ACETAMINOPHEN 325 MG TABLET PO PRN (05:49)
[2021-10-24] MEDS: LEVOTHYROXINE 200 MCG TABLET PO SCH (05:49)
[2021-10-24] MEDS: INSULIN GLARGINE 100 UNIT/ML SUBCUT SCH (08:30)
[2021-10-24] MEDS: INSULIN REGULAR 100 UNIT/ML SUBCUT SCH ×4 (08:30→21:07)
[2021-10-24] MEDS: SUCRALFATE 1 GM TABLET PO SCH ×4 (08:31→21:09)
[2021-10-24] MEDS: SEVELAMER CARBONATE 800 MG TABLET PO SCH ×3 (08:31→17:20)
[2021-10-24] MEDS: MONTELUKAST 10 MG TABLET PO SCH (08:31)
[2021-10-24] MEDS: DOXAZOSIN 1 MG TABLET PO SCH ×2 (08:31→21:09)
[2021-10-24] MEDS: DOCUSATE SODIUM 100 MG CAPSULE PO SCH ×2 (08:31→21:09)
[2021-10-24] MEDS: FERROUS SULFATE 325 MG TABLET PO SCH ×2 (08:31→21:09)
[2021-10-24] MEDS: ISOSORBIDE MONONITRATE 60 MG TABLET PO SCH ×2 (08:31→21:09)
[2021-10-24] MEDS: carvediloL 25 MG TABLET PO SCH ×2 (08:32→17:19)
[2021-10-24] MEDS: ASPIRIN EC 81 MG TABLET PO SCH (08:32)
[2021-10-24] MEDS: CHOLECALCIFEROL 1,000 UNIT TABLET PO SCH (08:32)
[2021-10-24] MEDS: PANTOPRAZOLE 40 MG TABLET PO SCH (08:32)
[2021-10-24] MEDS: DESITIN 4OZ/NYSTATIN 15 GRAM MIXTURE PASTE TOP SCH ×2 (08:32→21:12)
[2021-10-24] MEDS: LORazepam 2 MG/1 ML VIAL IV PRN (09:18)
[2021-10-24] MEDS ORDERED: INSULIN GLARGINE 100 UNIT/ML SUBCUT ONE (10:33)
[2021-10-24 12:22] LABS: Amorphous Crystals,Urine Few /HPF (Few); Bacteria,Urine Many /HPF (Few); RBC,Urine 19 /HPF (0-4); Squamous Epithelial Cell,Urine Occasional /HPF (0-10)
[2021-10-24 12:25] LABS: Bilirubin,Urine Negative (Negative); Blood, Urine Large mg/dL (Negative); Glucose,Urine (UA) 100 mg/dL (Negative); Ketones,Urine Negative (Negative); Nitrite,Urine Negative (Negative); Protein,Urine >=300 mg/dL (Negative); Urine Appearance Cloudy (Clear); Urine Color Yellow (Yellow); Urine Specific Gravity 1.015 (1.001-1.035); Urine Urobilinogen 0.2 eU/dL (<2.0)
[2021-10-24] MEDS: ACETAMINOPHEN 500 MG TABLET PO SCH (20:39)
[2021-10-24] MEDS: diphenhydrAMINE CAP 50 MG CAPSULE PO SCH (20:39)
[2021-10-24] MEDS: ENOXAPARIN 30 MG/0.3 ML SYRINGE SUBCUT SCH (21:08)
[2021-10-24] MEDS: ROSUVASTATIN 20 MG TABLET PO SCH (21:09)
[2021-10-24] MEDS: IMMUNE GLOBULIN 10% 20 GM, IMMUNE GLOBULIN 10% 10 GM, IMMUNE GLOBULIN 10% 5 GM in PREMI... IV SCH (21:40)
[2021-10-25 05:18] LABS: Basophils % 0.4 % (0.0-0.8); Eosinophils # 0.1 10*3/uL (0.0-0.87); Eosinophils % 2.1 % (0.00-10.9); Hematocrit 25.9 VOL% (35.7-47.0); Hemoglobin 8.4 GM/DL (12.0-16.0); Immature Granulocytes % 3.2 %; Immature Granulocytes Absolute 0.17 #; Lymphocytes # 1.1 10*3/uL (1.4-4.0); Lymphocytes % 20.1 % (21.3-54.2); Mean Corpuscular HGB Conc 32.4 GM/DL (32-36); Mean Corpuscular Volume 89.9 FL (87-102); Mean Platelet Volume 9.5 FL (9.6-12.0); Monocytes # 0.4 10*3/uL (0.11-0.8); Monocytes % 7.3 % (1.7-12.7); Neutrophils % 66.9 % (38.7-73.9); Platelet Count 212 T/CUMM (130-400); Red Blood Count 2.88 MC/CUMM (3.8-5.5); Red Cell Distribution Width 13.9 % (9.3-17.3); White Blood Count 5.4 T/CUMM (4-12)
[2021-10-25 05:32] LABS: Calcium 9.1 MG/DL (8.5-10.1); Osmolality,Calculated 280.2 MOS/KG (273-304); Potassium 3.6 MMOL/L (3.5-5.1)
[2021-10-25] MEDS: LEVOTHYROXINE 200 MCG TABLET PO SCH (05:45)
[2021-10-25] MEDS: INSULIN GLARGINE 100 UNIT/ML SUBCUT SCH (09:25)
[2021-10-25] MEDS: INSULIN REGULAR 100 UNIT/ML SUBCUT SCH ×4 (09:25→21:03)
[2021-10-25] MEDS: ASPIRIN EC 81 MG TABLET PO SCH (09:26)
[2021-10-25] MEDS: carvediloL 25 MG TABLET PO SCH ×2 (09:26→16:36)
[2021-10-25] MEDS: MONTELUKAST 10 MG TABLET PO SCH (09:26)
[2021-10-25] MEDS: SEVELAMER CARBONATE 800 MG TABLET PO SCH ×3 (09:26→16:36)
[2021-10-25] MEDS: DOXAZOSIN 1 MG TABLET PO SCH ×2 (09:26→21:07)
[2021-10-25] MEDS: DOCUSATE SODIUM 100 MG CAPSULE PO SCH ×2 (09:26→21:00)
[2021-10-25] MEDS: CHOLECALCIFEROL 1,000 UNIT TABLET PO SCH (09:27)
[2021-10-25] MEDS: PANTOPRAZOLE 40 MG TABLET PO SCH (09:27)
[2021-10-25] MEDS: ISOSORBIDE MONONITRATE 60 MG TABLET PO SCH ×2 (09:27→21:01)
[2021-10-25] MEDS: POLYETHYLENE GLYCOL POWDER 17 GM PACK PO SCH (09:27)
[2021-10-25] MEDS: SUCRALFATE 1 GM TABLET PO SCH ×4 (09:27→21:00)
[2021-10-25] MEDS: FERROUS SULFATE 325 MG TABLET PO SCH ×2 (09:27→21:01)
[2021-10-25] MEDS: DESITIN 4OZ/NYSTATIN 15 GRAM MIXTURE PASTE TOP SCH ×2 (09:28→21:04)
[2021-10-25] MEDS: cefTRIAXone 1,000 MG in SODIUM CHLORIDE 0.9% 100 ML IV SCH (09:39)
[2021-10-25] MEDS: ROSUVASTATIN 20 MG TABLET PO SCH (21:00)
[2021-10-25] MEDS: ENOXAPARIN 30 MG/0.3 ML SYRINGE SUBCUT SCH (21:08)
[2021-10-26 03:54] LABS: Basophils % 0.7 % (0.0-0.8); Eosinophils # 0.1 10*3/uL (0.0-0.87); Eosinophils % 2.2 % (0.00-10.9); Hematocrit 26.7 VOL% (35.7-47.0); Hemoglobin 8.7 GM/DL (12.0-16.0); Immature Granulocytes % 3.3 %; Lymphocytes # 1.4 10*3/uL (1.4-4.0); Lymphocytes % 23.7 % (21.3-54.2); Mean Corpuscular HGB Conc 32.6 GM/DL (32-36); Mean Corpuscular Volume 89.9 FL (87-102); Mean Platelet Volume 9.5 FL (9.6-12.0); Monocytes # 0.5 10*3/uL (0.11-0.8); Monocytes % 7.5 % (1.7-12.7); Neutrophils % 62.6 % (38.7-73.9); Platelet Count 232 T/CUMM (130-400); Red Blood Count 2.97 MC/CUMM (3.8-5.5); Red Cell Distribution Width 14.1 % (9.3-17.3)
[2021-10-26 04:08] LABS: Calcium 9.2 MG/DL (8.5-10.1); Potassium 3.7 MMOL/L (3.5-5.1)
[2021-10-26] MEDS: LEVOTHYROXINE 200 MCG TABLET PO SCH (05:57)
[2021-10-26] MEDS: FERROUS SULFATE 325 MG TABLET PO SCH ×2 (10:00→20:58)
[2021-10-26] MEDS: MONTELUKAST 10 MG TABLET PO SCH (10:00)
[2021-10-26] MEDS: ISOSORBIDE MONONITRATE 60 MG TABLET PO SCH ×2 (10:00→20:57)
[2021-10-26] MEDS: DOXAZOSIN 1 MG TABLET PO SCH ×2 (10:00→21:02)
[2021-10-26] MEDS: DOCUSATE SODIUM 100 MG CAPSULE PO SCH ×2 (10:00→20:57)
[2021-10-26] MEDS: DESITIN 4OZ/NYSTATIN 15 GRAM MIXTURE PASTE TOP SCH ×2 (10:00→21:10)
[2021-10-26] MEDS: INSULIN GLARGINE 100 UNIT/ML SUBCUT SCH (10:00)
[2021-10-26] MEDS: cefTRIAXone 1,000 MG in SODIUM CHLORIDE 0.9% 100 ML IV SCH (10:00)
[2021-10-26] MEDS: carvediloL 25 MG TABLET PO SCH ×2 (10:00→18:02)
[2021-10-26] MEDS: CHOLECALCIFEROL 1,000 UNIT TABLET PO SCH (10:00)
[2021-10-26] MEDS: SUCRALFATE 1 GM TABLET PO SCH ×4 (10:00→20:56)
[2021-10-26] MEDS: SERTRALINE 50 MG TABLET PO SCH (10:00)
[2021-10-26] MEDS: SEVELAMER CARBONATE 800 MG TABLET PO SCH ×3 (10:00→18:02)
[2021-10-26] MEDS: ASPIRIN EC 81 MG TABLET PO SCH (10:00)
[2021-10-26] MEDS: PANTOPRAZOLE 40 MG TABLET PO SCH (10:00)
[2021-10-26] MEDS: INSULIN REGULAR 100 UNIT/ML SUBCUT SCH ×4 (10:00→21:08)
[2021-10-26] MEDS: ROSUVASTATIN 20 MG TABLET PO SCH (20:58)
[2021-10-26] MEDS: ENOXAPARIN 30 MG/0.3 ML SYRINGE SUBCUT SCH (21:00)
[2021-10-27] MEDS: LEVOTHYROXINE 200 MCG TABLET PO SCH (05:41)
[2021-10-27] MEDS: INSULIN REGULAR 100 UNIT/ML SUBCUT SCH ×3 (09:30→18:02)
[2021-10-27] MEDS: FERROUS SULFATE 325 MG TABLET PO SCH (10:00)
[2021-10-27] MEDS: PANTOPRAZOLE 40 MG TABLET PO SCH (10:00)
[2021-10-27] MEDS: INSULIN GLARGINE 100 UNIT/ML SUBCUT SCH (10:00)
[2021-10-27] MEDS: MONTELUKAST 10 MG TABLET PO SCH (10:00)
[2021-10-27] MEDS: ISOSORBIDE MONONITRATE 60 MG TABLET PO SCH (10:00)
[2021-10-27] MEDS: carvediloL 25 MG TABLET PO SCH ×2 (10:00→17:35)
[2021-10-27] MEDS: CHOLECALCIFEROL 1,000 UNIT TABLET PO SCH (10:00)
[2021-10-27] MEDS: SERTRALINE 50 MG TABLET PO SCH (10:00)
[2021-10-27] MEDS: SUCRALFATE 1 GM TABLET PO SCH ×3 (10:00→18:03)
[2021-10-27] MEDS: DOXAZOSIN 1 MG TABLET PO SCH (10:00)
[2021-10-27] MEDS: SEVELAMER CARBONATE 800 MG TABLET PO SCH ×3 (10:00→17:35)
[2021-10-27] MEDS: DOCUSATE SODIUM 100 MG CAPSULE PO SCH (10:00)
[2021-10-27] MEDS: ASPIRIN EC 81 MG TABLET PO SCH (10:00)
[2021-10-27] MEDS: cefTRIAXone 1,000 MG in SODIUM CHLORIDE 0.9% 100 ML IV SCH (10:00)
[2021-10-27] MEDS: DESITIN 4OZ/NYSTATIN 15 GRAM MIXTURE PASTE TOP SCH (10:00)
[2021-10-27] MEDS: POLYETHYLENE GLYCOL POWDER 17 GM PACK PO SCH (10:00)
[2021-10-27 16:48] VITALS: BP 200/80
[2021-10-28] MEDS ORDERED: CYANOCOBALAMIN 500 MCG TABLET PO SCH (09:00)
== END 2021-10-27 21:00 | disposition home or self-care (01) | DRG 682 ==
LOC: N.ED 14:06 → INTOOBSV 15:16 → SUATTDRO 15:16 → N.EDINP 15:16 → N.TELEN 16:27 → SUATTDRO 10-14 11:57
PROVIDERS: ADMIT Internal Medicine; ATTEND Hospitalist

== ENCOUNTER 2021-10-31 13:11 | Observation (INO) ==
[2021-10-31] MEDS ORDERED: ACETAMINOPHEN 325 MG TABLET PO PRN (16:16)
[2021-10-31] MEDS ORDERED: ONDANSETRON 4 MG/2 ML VIAL IV PRN (16:16)
[2021-10-31] MEDS ORDERED: DOCUSATE SODIUM 100 MG CAPSULE PO PRN (16:16)
[2021-10-31] MEDS ORDERED: GLUCAGON 1 MG VIAL IM PRN ×2 (16:16→16:27)
[2021-10-31] MEDS ORDERED: NITROGLYCERIN SL 0.4 MG TABLET SL PRN (16:25)
[2021-10-31] MEDS ORDERED: DEXTROSE 10% 250 ML BAG IV PRN ×2 (16:28→16:30)
[2021-10-31] MEDS: INSULIN REGULAR 100 UNIT/ML SUBCUT SCH ×2 (17:51→21:14)
[2021-10-31] MEDS ORDERED: DOCUSATE SODIUM 100 MG CAPSULE PO SCH (21:00)
[2021-10-31] MEDS: ROSUVASTATIN 20 MG TABLET PO SCH (21:13)
[2021-10-31] MEDS: DOXAZOSIN 1 MG TABLET PO SCH (21:13)
[2021-10-31] MEDS: carvediloL 25 MG TABLET PO SCH (21:13)
[2021-10-31] MEDS: SUCRALFATE 1 GM TABLET PO SCH (21:13)
[2021-10-31] MEDS: HEPARIN 5,000 UNIT/1 ML VIAL SUBCUT SCH (21:14)
[2021-10-31] MEDS: ISOSORBIDE MONONITRATE 60 MG TABLET PO SCH (21:14)
[2021-11-01 05:00] LABS: Basophils % 0.6 % (0.0-0.8); Eosinophils # 0.2 10*3/uL (0.0-0.87); Eosinophils % 3.5 % (0.00-10.9); Hematocrit 28.1 VOL% (35.7-47.0); Hemoglobin 8.8 GM/DL (12.0-16.0); Immature Granulocytes % 0.5 %; Immature Granulocytes Absolute 0.03 #; Lymphocytes % 30.7 % (21.3-54.2); Mean Corpuscular HGB Conc 31.3 GM/DL (32-36); Mean Corpuscular Volume 92.4 FL (87-102); Mean Platelet Volume 9.7 FL (9.6-12.0); Monocytes # 0.5 10*3/uL (0.11-0.8); Monocytes % 7.4 % (1.7-12.7); Neutrophils % 57.3 % (38.7-73.9); Platelet Count 289 T/CUMM (130-400); Red Blood Count 3.04 MC/CUMM (3.8-5.5); Red Cell Distribution Width 14.6 % (9.3-17.3); White Blood Count 6.4 T/CUMM (4-12)
[2021-11-01 05:13] LABS: Calcium 9.8 MG/DL (8.5-10.1); Osmolality,Calculated 301.5 MOS/KG (273-304)
[2021-11-01] MEDS: LEVOTHYROXINE 200 MCG TABLET PO SCH (05:32)
[2021-11-01] MEDS: INSULIN REGULAR 100 UNIT/ML SUBCUT SCH ×4 (08:31→20:21)
[2021-11-01 08:57] LABS: Hepatitis B Core IgM Quant 0.07 Index; Hepatitis B Surface Ag Quant < 0.10 Index; Hepatitis B Surface Ag Result Non-Reactive (NonReactive); Hepatitis C Virus Ab Quant 0.15 Index; Hepatitis C Virus Ab Result Non-Reactive (NonReactive)
[2021-11-01] MEDS ORDERED: DOCUSATE SODIUM 100 MG CAPSULE PO SCH (09:00)
[2021-11-01] MEDS: DOXAZOSIN 1 MG TABLET PO SCH ×2 (12:12→20:14)
[2021-11-01] MEDS: SEVELAMER CARBONATE 800 MG TABLET PO SCH ×3 (12:12→17:32)
[2021-11-01] MEDS: FUROSEMIDE 40 MG TABLET PO SCH (12:13)
[2021-11-01] MEDS: CHOLECALCIFEROL 1,000 UNIT TABLET PO SCH (12:13)
[2021-11-01] MEDS: ASPIRIN EC 81 MG TABLET PO SCH (12:14)
[2021-11-01] MEDS: CYANOCOBALAMIN 500 MCG TABLET PO SCH (12:14)
[2021-11-01] MEDS: SUCRALFATE 1 GM TABLET PO SCH ×4 (12:14→20:15)
[2021-11-01] MEDS: SERTRALINE 50 MG TABLET PO SCH (12:14)
[2021-11-01] MEDS: MONTELUKAST 10 MG TABLET PO SCH (12:15)
[2021-11-01] MEDS: HEPARIN 5,000 UNIT/1 ML VIAL SUBCUT SCH ×2 (12:15→20:16)
[2021-11-01] MEDS: ISOSORBIDE MONONITRATE 60 MG TABLET PO SCH ×2 (12:15→20:15)
[2021-11-01] MEDS: POLYETHYLENE GLYCOL POWDER 17 GM PACK PO SCH (12:17)
[2021-11-01] MEDS: carvediloL 25 MG TABLET PO SCH ×2 (16:50→20:15)
[2021-11-01] MEDS: DESITIN 4OZ/NYSTATIN 15 GRAM MIXTURE PASTE TOP SCH ×2 (17:33→20:20)
[2021-11-01] MEDS: ROSUVASTATIN 20 MG TABLET PO SCH (20:15)
[2021-11-02] MEDS: LEVOTHYROXINE 200 MCG TABLET PO SCH (05:35)
[2021-11-02] MEDS: DOXAZOSIN 1 MG TABLET PO SCH ×2 (08:28→21:04)
[2021-11-02] MEDS: ISOSORBIDE MONONITRATE 60 MG TABLET PO SCH ×2 (08:28→21:04)
[2021-11-02] MEDS: CYANOCOBALAMIN 500 MCG TABLET PO SCH (08:28)
[2021-11-02] MEDS: carvediloL 25 MG TABLET PO SCH ×2 (08:28→21:04)
[2021-11-02] MEDS: POLYETHYLENE GLYCOL POWDER 17 GM PACK PO SCH (08:28)
[2021-11-02] MEDS: CHOLECALCIFEROL 1,000 UNIT TABLET PO SCH (08:28)
[2021-11-02] MEDS: SEVELAMER CARBONATE 800 MG TABLET PO SCH ×3 (08:28→17:29)
[2021-11-02] MEDS: FUROSEMIDE 40 MG TABLET PO SCH (08:28)
[2021-11-02] MEDS: MONTELUKAST 10 MG TABLET PO SCH (08:29)
[2021-11-02] MEDS: ASPIRIN EC 81 MG TABLET PO SCH (08:29)
[2021-11-02] MEDS: HEPARIN 5,000 UNIT/1 ML VIAL SUBCUT SCH ×2 (08:29→21:10)
[2021-11-02] MEDS: SERTRALINE 50 MG TABLET PO SCH (08:29)
[2021-11-02] MEDS: SUCRALFATE 1 GM TABLET PO SCH ×4 (08:29→21:04)
[2021-11-02] MEDS: INSULIN REGULAR 100 UNIT/ML SUBCUT SCH ×4 (08:32→20:21)
[2021-11-02] MEDS ORDERED: POLYETHYLENE GLYCOL POWDER 17 GM PACK PO SCH (09:00)
[2021-11-02] MEDS: DESITIN 4OZ/NYSTATIN 15 GRAM MIXTURE PASTE TOP SCH ×2 (09:13→21:10)
[2021-11-02 09:20] LABS: Basophils % 0.3 % (0.0-0.8); Eosinophils # 0.2 10*3/uL (0.0-0.87); Eosinophils % 2.9 % (0.00-10.9); Hematocrit 26.9 VOL% (35.7-47.0); Hemoglobin 8.6 GM/DL (12.0-16.0); Immature Granulocytes % 0.9 %; Immature Granulocytes Absolute 0.05 #; Lymphocytes # 1.7 10*3/uL (1.4-4.0); Lymphocytes % 28.9 % (21.3-54.2); Mean Corpuscular Volume 92.8 FL (87-102); Mean Platelet Volume 9.5 FL (9.6-12.0); Monocytes # 0.5 10*3/uL (0.11-0.8); Monocytes % 8.5 % (1.7-12.7); Neutrophils % 58.5 % (38.7-73.9); Platelet Count 271 T/CUMM (130-400); Red Cell Distribution Width 14.6 % (9.3-17.3); White Blood Count 5.8 T/CUMM (4-12)
[2021-11-02 09:52] LABS: Alanine Aminotransferase 41 U/L (13-56); Albumin 2.1 G/DL (3.4-5.0); Alkaline Phosphatase 233 U/L (45-117); Aspartate Amino Transferase 28 U/L (0-37); Bilirubin,Total < 0.39 MG/DL (0.20-1.00); Blood Urea Nitrogen 52 MG/DL (7-18); Calcium 9.2 MG/DL (8.5-10.1); Carbon Dioxide 27 MMOL/L (21-32); Chloride 104 MMOL/L (98-107); Glucose 187 MG/DL (74-106); Osmolality,Calculated 293.7 MOS/KG (273-304); Potassium 4.3 MMOL/L (3.5-5.1); Sodium 138 MMOL/L (136-145); Total Protein 6.8 G/DL (6.4-8.2)
[2021-11-02] MEDS ORDERED: HEPARIN 10,000 UNIT/10 ML VIAL IV PRN (17:06)
[2021-11-02] MEDS: ROSUVASTATIN 20 MG TABLET PO SCH (21:04)
[2021-11-03 05:40] LABS: Basophils % 0.7 % (0.0-0.8); Eosinophils # 0.2 10*3/uL (0.0-0.87); Eosinophils % 3.7 % (0.00-10.9); Hematocrit 25.6 VOL% (35.7-47.0); Hemoglobin 8.1 GM/DL (12.0-16.0); Immature Granulocytes % 0.9 %; Immature Granulocytes Absolute 0.05 #; Lymphocytes # 1.8 10*3/uL (1.4-4.0); Lymphocytes % 32.9 % (21.3-54.2); Mean Corpuscular HGB Conc 31.6 GM/DL (32-36); Mean Corpuscular Volume 92.8 FL (87-102); Mean Platelet Volume 9.8 FL (9.6-12.0); Monocytes # 0.5 10*3/uL (0.11-0.8); Monocytes % 9.1 % (1.7-12.7); Neutrophils % 52.7 % (38.7-73.9); Platelet Count 231 T/CUMM (130-400); Red Blood Count 2.76 MC/CUMM (3.8-5.5); Red Cell Distribution Width 14.6 % (9.3-17.3); White Blood Count 5.4 T/CUMM (4-12)
[2021-11-03 06:05] LABS: Alanine Aminotransferase 41 U/L (13-56); Albumin 2.1 G/DL (3.4-5.0); Alkaline Phosphatase 209 U/L (45-117); Aspartate Amino Transferase 29 U/L (0-37); Bilirubin,Total < 0.39 MG/DL (0.20-1.00); Blood Urea Nitrogen 34 MG/DL (7-18); Calcium 9.4 MG/DL (8.5-10.1); Carbon Dioxide 28 MMOL/L (21-32); Chloride 104 MMOL/L (98-107); Glucose 133 MG/DL (74-106); Potassium 4.3 MMOL/L (3.5-5.1); Sodium 136 MMOL/L (136-145); Total Protein 6.7 G/DL (6.4-8.2)
[2021-11-03] MEDS: LEVOTHYROXINE 200 MCG TABLET PO SCH (06:08)
[2021-11-03] MEDS: SUCRALFATE 1 GM TABLET PO SCH ×2 (08:30→12:31)
[2021-11-03] MEDS: SEVELAMER CARBONATE 800 MG TABLET PO SCH ×2 (08:30→12:31)
[2021-11-03] MEDS: INSULIN REGULAR 100 UNIT/ML SUBCUT SCH ×2 (11:03→12:31)
[2021-11-03] MEDS: POLYETHYLENE GLYCOL POWDER 17 GM PACK PO SCH (11:19)
[2021-11-03] MEDS: HEPARIN 5,000 UNIT/1 ML VIAL SUBCUT SCH (11:25)
[2021-11-03] MEDS: CHOLECALCIFEROL 1,000 UNIT TABLET PO SCH (11:25)
[2021-11-03] MEDS: CYANOCOBALAMIN 500 MCG TABLET PO SCH (11:28)
[2021-11-03] MEDS: MONTELUKAST 10 MG TABLET PO SCH (11:28)
[2021-11-03] MEDS: ASPIRIN EC 81 MG TABLET PO SCH (11:28)
[2021-11-03] MEDS: FUROSEMIDE 40 MG TABLET PO SCH (11:29)
[2021-11-03] MEDS: DOXAZOSIN 1 MG TABLET PO SCH (11:31)
[2021-11-03] MEDS: carvediloL 25 MG TABLET PO SCH (11:31)
[2021-11-03] MEDS: SERTRALINE 50 MG TABLET PO SCH (11:31)
[2021-11-03] MEDS: ISOSORBIDE MONONITRATE 60 MG TABLET PO SCH (11:32)
[2021-11-03] MEDS: DESITIN 4OZ/NYSTATIN 15 GRAM MIXTURE PASTE TOP SCH (11:33)
[2021-11-03 11:34] VITALS: BP 151/69
== END 2021-11-03 15:12 | disposition home health service (06) ==
LOC: EDBD → EDUNIT# → N.EDINP 13:11 → N.ED 13:11 → SUATTDRO 15:43 → N.TELEN 18:19
PROVIDERS: ADMIT Hospitalist; ATTEND Family Medicine